=== PATIENT | male | born 1940 | race Caucasian/White ===

== ENCOUNTER → 2019-07-04 15:30 | Outpatient (BNVA) | payer MEDICARE, SELFPAY | PROVIDERS: Family Provider Family Medicine; PCP Family Medicine; Visit Provider Family Medicine | DX: E11.9 Type 2 diabetes mellitus without complications (principal); E78.2 Mixed hyperlipidemia; Z86.73 Personal history of transient ischemic attack (TIA), and cerebral infarction without residual deficits; Z79.4 Long term (current) use of insulin; I10 Essential (primary) hypertension; M1A.9XX0 Chronic gout, unspecified, without tophus (tophi); I63.423 Cerebral infarction due to embolism of bilateral anterior cerebral arteries; K21.9 Gastro-esophageal reflux disease without esophagitis | CPT/HCPCS: 80053; 80061; 83036; 83721; 85025; 85610 ==

== ENCOUNTER → 2019-07-18 10:04 | Outpatient (BNVA) | payer MEDICARE, SELFPAY | PROVIDERS: Family Provider Family Medicine; PCP Family Medicine; Visit Provider Family Medicine | DX: I26.99 Other pulmonary embolism without acute cor pulmonale (principal) | CPT/HCPCS: 85610 ==

== ENCOUNTER → 2019-08-01 14:03 | Outpatient (BNVA) | payer MEDICARE, SELFPAY | PROVIDERS: Family Provider Family Medicine; PCP Family Medicine; Visit Provider Family Medicine | DX: I26.99 Other pulmonary embolism without acute cor pulmonale (principal) | CPT/HCPCS: 85610 ==

== ENCOUNTER → 2019-08-15 10:11 | Outpatient (BNVA) | payer MEDICARE, SELFPAY | PROVIDERS: Family Provider Family Medicine; PCP Family Medicine; Visit Provider Family Medicine | DX: I63.423 Cerebral infarction due to embolism of bilateral anterior cerebral arteries (principal); I82.409 Acute embolism and thrombosis of unspecified deep veins of unspecified lower extremity | CPT/HCPCS: 85610 ==

== ENCOUNTER → 2019-09-21 11:56 | Outpatient (BNVA) | payer MEDICARE, SELFPAY | PROVIDERS: Family Provider Family Medicine; PCP Family Medicine; Visit Provider Family Medicine | DX: I26.99 Other pulmonary embolism without acute cor pulmonale (principal) | CPT/HCPCS: 85610 ==

== ENCOUNTER → 2019-11-08 11:51 | Outpatient (BNVA) | payer MEDICARE, SELFPAY | PROVIDERS: Family Provider Family Medicine; PCP Family Medicine; Visit Provider Family Medicine | DX: E11.40 Type 2 diabetes mellitus with diabetic neuropathy, unspecified (principal); E78.5 Hyperlipidemia, unspecified; I63.423 Cerebral infarction due to embolism of bilateral anterior cerebral arteries; I10 Essential (primary) hypertension; K21.9 Gastro-esophageal reflux disease without esophagitis; E11.42 Type 2 diabetes mellitus with diabetic polyneuropathy; I26.99 Other pulmonary embolism without acute cor pulmonale; G47.00 Insomnia, unspecified; I50.9 Heart failure, unspecified | CPT/HCPCS: 80053; 80061; 83036; 85025 ==

== ENCOUNTER → 2020-01-22 11:50 | Outpatient (BNVA) | payer MEDICARE, SELFPAY | PROVIDERS: Family Provider Family Medicine; PCP Family Medicine; Visit Provider Family Medicine | DX: I26.99 Other pulmonary embolism without acute cor pulmonale (principal); E11.40 Type 2 diabetes mellitus with diabetic neuropathy, unspecified; L02.91 Cutaneous abscess, unspecified; L02.224 Furuncle of groin; E11.42 Type 2 diabetes mellitus with diabetic polyneuropathy | CPT/HCPCS: 85610 ==

== ENCOUNTER → 2020-02-21 10:43 | Outpatient (BNVA) | payer MEDICARE, SELFPAY | PROVIDERS: Family Provider Family Medicine; PCP Family Medicine; Visit Provider Family Medicine | DX: E11.40 Type 2 diabetes mellitus with diabetic neuropathy, unspecified (principal); E78.5 Hyperlipidemia, unspecified; I26.99 Other pulmonary embolism without acute cor pulmonale; I10 Essential (primary) hypertension; K21.9 Gastro-esophageal reflux disease without esophagitis | CPT/HCPCS: 80053; 80061; 83036; 85025; 85610 ==

== ENCOUNTER → 2020-03-26 11:02 | Outpatient (BNVA) | payer MEDICARE, SELFPAY | PROVIDERS: Family Provider Family Medicine; PCP Family Medicine; Visit Provider Family Medicine | DX: I26.99 Other pulmonary embolism without acute cor pulmonale (principal) | CPT/HCPCS: 85610 ==

== ENCOUNTER 2020-05-13 12:16 | Outpatient (CLI) | payer MEDICARE, SELFPAY ==
--- NOTE | 2020-05-13 12:45 | USCV_ITS ---
Shaila Galvan Age: 80 Gender: M : 1940 Exam Date: 05/13/2020 12:42 Ordering Phys: Noah Contreras MD ([email or web address]) Technologist: Layla Miguel Exam Location: [facility] [place] Indication: Pain in both lower extremities HISTORY: Lower extremity pain. PROCEDURES: Venous duplex imaging was performed in bilateral lower extremities. The following venous structures were evaluated: common femoral vein, profunda vein, proximal portion of the greater saphenous vein, superficial femoral vein, and the popliteal vein. Serial compression, augmentation maneuvers, and spectral Doppler flow evaluation were performed. FINDINGS: Normal 2-D Doppler and augmentation and compressibility throughout the lower extremity venous structures. Additional imaging through the proximal calf veins also reveals no thrombus. Limited evaluation of the greater saphenous vein is patent with no thrombus.. CONCLUSIONS No evidence of right lower extremity DVT. No evidence of left lower extremity DVT. Tato Rosas MD (Electronically Signed) Final Date: 13 May 2020 17:29 S
== END 2020-05-13 12:17 | disposition home or self-care (01) ==
PROVIDERS: PCP Family Medicine; Visit Provider Internal Medicine Cardiovascular Disease
DX: M79.604 Pain in right leg (principal); M79.605 Pain in left leg
CPT/HCPCS: 93970

== ENCOUNTER 2020-05-14 12:19 | Outpatient (CLI) | payer MEDICARE, SELFPAY ==
--- NOTE | 2020-05-14 12:25 | USCV_ITS ---
Shaila Galvan Age: 80 Gender: M : 1940 Exam Date: 05/14/2020 12:31 Ordering Phys: Noah Contreras MD Technologist: Qasim Larkin [place]am Location[place] [facility] [place]ication: PAIN IN BOTH LOWER EXTREMITIES. PAD RIGHT LEFT Brachial 127.00 mmHg Brachial 158.00 mmHg Pressure (mmHg) Waveform Pressure (mmHg) Waveform 93.00 Pre-Exercise Toe Pressure 130.00 FINDINGS Noncompressible arteries bilaterally at the ankle Slightly diminished restingTBI 0.59 on the right side and a normal resting TBI 0.82 on the left side CONCLUSIONS Features of mild peripheral artery disease on the right side No significant arterial obstruction on the left side Dr Pallavi Kumari MD [facility] Edited by: CV Cable Former (Electronically Signed) Final Date: 15 May 2020 17:20 Amended: 16 May 2020 06:55 C MTDD
== END 2020-05-14 12:20 | disposition home or self-care (01) ==
LOC: US 12:22
PROVIDERS: PCP Family Medicine; Visit Provider Internal Medicine Cardiovascular Disease
DX: M79.604 Pain in right leg (principal); M79.605 Pain in left leg; I73.9 Peripheral vascular disease, unspecified
CPT/HCPCS: 93922

== ENCOUNTER → 2020-05-20 10:40 | Outpatient (BNVA) | payer MEDICARE, SELFPAY | PROVIDERS: PCP Family Medicine; Visit Provider Family Medicine | DX: E11.40 Type 2 diabetes mellitus with diabetic neuropathy, unspecified (principal); E78.2 Mixed hyperlipidemia; I10 Essential (primary) hypertension; K21.9 Gastro-esophageal reflux disease without esophagitis; I26.99 Other pulmonary embolism without acute cor pulmonale | CPT/HCPCS: 80053; 80061; 83036; 84443; 85025; 85610 ==

== ENCOUNTER → 2020-06-27 10:26 | Outpatient (BNVA) | payer MEDICARE, SELFPAY | PROVIDERS: PCP Family Medicine; Visit Provider Family Medicine | DX: E03.9 Hypothyroidism, unspecified (principal); I26.99 Other pulmonary embolism without acute cor pulmonale | CPT/HCPCS: 84439; 84443; 84481; 85610 ==

== ENCOUNTER → 2020-08-23 14:38 | Outpatient (BNVA) | payer MEDICARE, SELFPAY | PROVIDERS: PCP Family Medicine; Visit Provider Family Medicine | DX: E78.2 Mixed hyperlipidemia (principal); E11.40 Type 2 diabetes mellitus with diabetic neuropathy, unspecified; I26.99 Other pulmonary embolism without acute cor pulmonale | CPT/HCPCS: 85610 ==

== ENCOUNTER → 2020-09-30 13:08 | Outpatient (BNVA) | payer MEDICARE, SELFPAY | PROVIDERS: PCP Family Medicine; Visit Provider Family Medicine | DX: E03.9 Hypothyroidism, unspecified (principal); E11.40 Type 2 diabetes mellitus with diabetic neuropathy, unspecified; E78.2 Mixed hyperlipidemia; I26.99 Other pulmonary embolism without acute cor pulmonale | CPT/HCPCS: 80053; 80061; 83036; 84443; 85025; 85610 ==

== ENCOUNTER → 2020-11-25 11:43 | Outpatient (BNVA) | payer MEDICARE, SELFPAY | PROVIDERS: PCP Family Medicine; Visit Provider Family Medicine | DX: E11.40 Type 2 diabetes mellitus with diabetic neuropathy, unspecified (principal); E78.2 Mixed hyperlipidemia; I10 Essential (primary) hypertension; M1A.9XX0 Chronic gout, unspecified, without tophus (tophi); I26.99 Other pulmonary embolism without acute cor pulmonale; Z68.30 Body mass index [BMI] 30.0-30.9, adult; Z71.89 Other specified counseling | CPT/HCPCS: 80053; 80061; 83036; 84443; 84550; 85025; 85610 ==

== ENCOUNTER → 2021-02-24 12:39 | Outpatient (BNVA) | payer MEDICARE, SELFPAY | PROVIDERS: PCP Family Medicine; Visit Provider Family Medicine | DX: E11.40 Type 2 diabetes mellitus with diabetic neuropathy, unspecified (principal); E78.2 Mixed hyperlipidemia; I10 Essential (primary) hypertension; I26.99 Other pulmonary embolism without acute cor pulmonale; K21.9 Gastro-esophageal reflux disease without esophagitis; R53.83 Other fatigue; Z12.5 Encounter for screening for malignant neoplasm of prostate; M79.671 Pain in right foot; M79.672 Pain in left foot; M1A.9XX0 Chronic gout, unspecified, without tophus (tophi); E78.5 Hyperlipidemia, unspecified | CPT/HCPCS: 80053; 80061; 82607; 83036; 84403; 84443; 85025; 85610; G0103 ==

== ENCOUNTER → 2021-03-24 13:07 | Outpatient (BNVA) | payer MEDICARE, SELFPAY | PROVIDERS: PCP Family Medicine; Referring Provider Family Medicine; Visit Provider Podiatrist Foot & Ankle Surgery | DX: M19.071 Primary osteoarthritis, right ankle and foot (principal); M79.671 Pain in right foot; M79.672 Pain in left foot | CPT/HCPCS: 73620; 73630 ==

== ENCOUNTER → 2021-04-02 12:09 | Outpatient (BNVA) | payer MEDICARE, SELFPAY | PROVIDERS: PCP Family Medicine; Visit Provider Family Medicine | DX: E11.40 Type 2 diabetes mellitus with diabetic neuropathy, unspecified (principal); E78.2 Mixed hyperlipidemia; I10 Essential (primary) hypertension; I26.99 Other pulmonary embolism without acute cor pulmonale; Z23 Encounter for immunization; R06.02 Shortness of breath; I51.7 Cardiomegaly; J90 Pleural effusion, not elsewhere classified; I70.0 Atherosclerosis of aorta | CPT/HCPCS: 71046; 80053; 80061; 83036; 84443; 85025; 85610 ==

== ENCOUNTER → 2021-06-30 11:29 | Outpatient (BNVA) | payer MEDICARE, SELFPAY | PROVIDERS: PCP Family Medicine; Visit Provider Family Medicine | DX: K21.9 Gastro-esophageal reflux disease without esophagitis (principal); E78.2 Mixed hyperlipidemia; E11.40 Type 2 diabetes mellitus with diabetic neuropathy, unspecified; I10 Essential (primary) hypertension; I26.99 Other pulmonary embolism without acute cor pulmonale | CPT/HCPCS: 80053; 80061; 83036; 84443; 85025; 85610 ==

== ENCOUNTER → 2021-09-29 11:34 | Outpatient (BNVA) | payer MEDICARE, SELFPAY | PROVIDERS: PCP Family Medicine; Visit Provider Family Medicine | DX: E78.5 Hyperlipidemia, unspecified (principal); E11.9 Type 2 diabetes mellitus without complications; I10 Essential (primary) hypertension; K21.9 Gastro-esophageal reflux disease without esophagitis; I73.9 Peripheral vascular disease, unspecified; E11.40 Type 2 diabetes mellitus with diabetic neuropathy, unspecified; E78.2 Mixed hyperlipidemia; R06.02 Shortness of breath; I50.32 Chronic diastolic (congestive) heart failure | CPT/HCPCS: 80053; 80061; 83036; 84443; 85025; 85610 ==

== ENCOUNTER → 2021-10-09 09:27 | Outpatient (BNVA) | payer MEDICARE, SELFPAY | PROVIDERS: PCP Family Medicine; Visit Provider Internal Medicine Cardiovascular Disease | DX: I13.0 Hypertensive heart and chronic kidney disease with heart failure and stage 1 through stage 4 chronic kidney disease, or unspecified chronic kidney disease (principal); E11.22 Type 2 diabetes mellitus with diabetic chronic kidney disease; E11.40 Type 2 diabetes mellitus with diabetic neuropathy, unspecified; N18.9 Chronic kidney disease, unspecified; I50.32 Chronic diastolic (congestive) heart failure; Z79.4 Long term (current) use of insulin; Z79.84 Long term (current) use of oral hypoglycemic drugs; I25.10 Atherosclerotic heart disease of native coronary artery without angina pectoris; I73.9 Peripheral vascular disease, unspecified | CPT/HCPCS: 99214 ==

== ENCOUNTER 2021-10-20 10:00 | Outpatient (CLI) | payer MEDICARE, SELFPAY ==
[2021-10-20 10:42] LABS: Anion Gap 14.2 (5-19); Blood Urea Nitrogen 25 mg/dL (8-23); Calcium 9.4 mg/dL (8.5-10.5); Carbon Dioxide 28 mmol/L (22-29); Chloride 100 mmol/L (98-107); Glucose 263 mg/dL (65-115); Magnesium 1.9 mg/dL (1.7-2.3); NT Pro B Type Natriuretic Pept 2309 pg/mL (0-450); Osmolality Calculated 298 mOsm/kg (285-295); Potassium 5.2 mmol/L (3.5-5.1); Sodium 137 mmol/L (136-145)
== END 2021-10-20 10:01 | disposition home or self-care (01) ==
LOC: LAB 10:02
PROVIDERS: PCP Family Medicine; Visit Provider Internal Medicine Cardiovascular Disease
DX: I25.10 Atherosclerotic heart disease of native coronary artery without angina pectoris (principal); I73.9 Peripheral vascular disease, unspecified; R06.02 Shortness of breath
CPT/HCPCS: 80048; 83735; 83880

== ENCOUNTER 2021-10-30 09:30 | Outpatient (CLI) | payer MEDICARE, SELFPAY ==
[2021-10-30 10:37] LABS: Blood Urea Nitrogen 28 mg/dL (8-23); Calcium 9.8 mg/dL (8.5-10.5); Carbon Dioxide 31 mmol/L (22-29); Chloride 98 mmol/L (98-107); Glucose 188 mg/dL (65-115); Magnesium 2.2 mg/dL (1.7-2.3); NT Pro B Type Natriuretic Pept 1628 pg/mL (0-450); Osmolality Calculated 296 mOsm/kg (285-295); Sodium 138 mmol/L (136-145)
[2021-10-30 10:41] LABS: Anion Gap 14.5 (5-19); Potassium 5.5 mmol/L (3.5-5.1)
== END 2021-10-30 09:31 | disposition home or self-care (01) ==
LOC: LAB 09:32
PROVIDERS: PCP Family Medicine; Visit Provider Internal Medicine Cardiovascular Disease
DX: I25.10 Atherosclerotic heart disease of native coronary artery without angina pectoris (principal); I50.32 Chronic diastolic (congestive) heart failure
CPT/HCPCS: 80048; 83735; 83880

== ENCOUNTER 2021-11-21 06:24 | Outpatient (CLI) | payer MEDICARE, SELFPAY ==
--- NOTE | 2021-11-21 06:30 | USCV_ITS ---
Shaila Galvan Age: 81 Gender: M : 1940 Exam Date: 11/21/2021 06:44 Ordering Phys: Anette Li MD ([email or web address]) Technologist: SHAYY [place] [facility] [place]: Shortness of breath BP: 144 / 62 HR: 82 Rhythm: Sinus Technical Quality: Adequate MEASUREMENTS (Male / Female) Normal Values 2D ECHO LV Diastolic Diameter PLAX 4.7 cm 4.2 - 5.9 / 3.9 - 5.3 cm LV Systolic Diameter PLAX 4.0 cm IVS Diastolic Thickness 1.3 cm 0.6 - 1.0 / 0.6 - 0.9 cm IVS Systolic Thickness 1.5 cm LVPW Diastolic Thickness 1.6 cm 0.6 - 1.0 / 0.6 - 0.9 cm LVPW Systolic Thickness 2.1 cm LVOT Diameter 2.0 cm LV Ejection Fraction 2D Teich 31.0 % LV Ejection Fraction MOD 2C 19.8 % LV Ejection Fraction 2C AL 21.8 % LA Diameter 3.8 cm Aorta at Sinotubular Diameter 2.2 cm IVC Diameter 2.0 cm M-MODE Aortic Annulus Diameter 2.9 cm LA Ao Ratio MM 1.4 MV E Point Septal Separation 1.2 cm DOPPLER AV Peak Velocity 124.0 cm/s LVOT Peak Velocity 92.0 cm/s AV Area Cont Eq vti 1.9 cm squared AV Area Cont Eq pk 2.4 cm squared MV Area PHT 4.9 cm squared MV E' Velocity 50.0 cm/s Mitral E to MV E' Ratio 20.8 Mitral E to LV E' Lateral Ratio 14.9 Mitral E to LV E' Septal Ratio 34.7 TR Peak Velocity 276.7 cm/s TR Peak Gradient 30.6 mmHg Right Atrial Pressure 3.0 mmHg Pulmonary Artery Systolic Pressu 33.6 mmHg PV Peak Velocity 106.0 cm/s RV Acceleration Time 0.1 s RV Ejection Time 0.2 s RV AcT/ET 0.3 FINDINGS Left Ventricle Normal left ventricular cavity size. Severely decreased left ventricular systolic function. Left ventricular ejection fraction is estimated at 25-30 %. Moderate global hypokinesis with severe hypokinesis of mid inferoseptal, mid apical septal and apical septal hinojosa. Right Ventricle Normal right ventricular size. Low normal right ventricular systolic function. Right Atrium Right atrium not well visualized. Left Atrium Left atrium not well visualized. Mitral Valve Moderate mitral annular calcification. Moderately thickened mitral valve. No mitral valve stenosis. No significant mitral valve regurgitation. Aortic Valve Aortic valve not well visualized. No significant aortic valve stenosis. No aortic valve regurgitation. Tricuspid Valve Tricuspid valve not well visualized. Pulmonic Valve Structurally normal pulmonic valve. No pulmonary valve stenosis. Trace pulmonary valve regurgitation. Pericardium No pericardial effusion. Aorta Normal sized aortic root. IVC Normal IVC dimension with <50% respiratory change of the inferior vena cava. CONCLUSIONS 1. This is a technically very difficult study. Optison was used per protocol. 2. Normal left ventricular cavity size. Severely decreased left ventricular systolic function. Left ventricular ejection fraction is estimated at 25-30 %. Moderate global hypokinesis with severe hypokinesis of mid inferoseptal, mid apical septal and apical septal hinojosa. 3. No significant change when compared to echo report dated 01/10/2018. Anette Li MD (Electronically Signed) Final Date: 25 November 2021 07:39 S
[2021-11-21] MEDS: perflutren protein-a microsphr 0.22 mg/mL SDV 3 mL IV (07:23)
== END 2021-11-21 06:25 | disposition home or self-care (01) ==
LOC: RAD 06:28
PROVIDERS: PCP Family Medicine; Visit Provider Internal Medicine Cardiovascular Disease
DX: I25.10 Atherosclerotic heart disease of native coronary artery without angina pectoris (principal); I50.32 Chronic diastolic (congestive) heart failure; R06.02 Shortness of breath
CPT/HCPCS: C8929

== ENCOUNTER 2021-11-25 09:21 | Outpatient (CLI) | payer MEDICARE, SELFPAY ==
--- NOTE | 2021-11-25 09:15 | USCV_ITS ---
Shaila Galvan Age: 81 Gender: M : 1940 Exam Date: 11/25/2021 10:01 Ordering Phys: Anette Li MD ([email or web address]) Technologist: SHITAL [place] [facility] [place]ication: carotid stenosis Risk Factors: Previous Vascular Surgery: Right Brachial BP: / Left Brachial BP: / Right Left Velocity (cm/s) Spectral Plaque Velocity (cm/s) Spectral Plaque Syst/Diast Broadening Syst/Diast Broadening 85.80/ 11.80 Hetro Prox CCA 145.70/ 14.40 Hetro 123.50/14.30 Hetro Mid CCA 149.30/ 18.00 Hetro 65.10/ 8.80 Jesus Distal CCA 149.30/ 23.40 Jesus 63.70/ 14.00 Jesus Prox ICA 111.50/ 19.80 Jesus 582.20/163.20 Jesus Mid ICA 494.30/ 161.50 Jesus 115.00/15.50 Hetro Distal ICA 276.20/ 58.10 Hetro 189.30 ECA 351.10 4.71 ICA/CCA 3.31 Retrograde Vertebral Antegrade 41.90/ 25.40 cm/s 41.40/ 7.30 cm/s Bi Subclavian Bi 219.7 134.7 0 0 FINDINGS Heavy heterogeneous plaques at the mid ICA bilaterally with a markedly elevated Doppler flow velocities and spectral broadening Mild to moderate diffuse plaques in the common carotid arteries bilaterally. Retrograde flow in the vertebral artery on the right side Elevated velocity in the subclavian artery on the right side CONCLUSIONS 1. Heavy heterogeneous plaques in the proximal to mid internal carotid artery bilaterally relative Doppler features suggesting greater than 70% stenosis. 2. 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 3. Mild to moderate diffuse plaques in the common carotid arteries bilaterally Compared to the study from 01/10/2018, there appears to be a significant worsening of stenosis on both sides. The reversal of flow in the right vertebral artery appears to be new Dr Pallavi Kumari MD [facility] (Electronically Signed) Final Date: 26 November 2021 08:05 S
--- NOTE | 2021-11-25 10:00 | USCV_ITS ---
Shaila Galvan Age: 81 Gender: M : 1940 Exam Date: 11/25/2021 10:28 Ordering Phys: Anette Li MD ([email or web address]) Technologist: SHITAL Exam Location: [facility] [place] Indication: pad Risk Factors: Previous Vascular Surgery: RIGHT LEFT BP: 126.0 / 87.00 BP: 167.0/ 86.00 0 0 Waveform Velocity (cm/s) Velocity (cm/s) Waveform Monophasic 148.6 Iliac Prox 105.2 Biphasic Biphasic 144.6 Iliac Mid 96.0 Biphasic Biphasic 128.8 Iliac Distal 85.4 Biphasic Biphasic 94.7 WATER PURIFIER OPERATOR 86.1 Biphasic Biphasic 118.3 SFA Prox 84.1 Biphasic Biphasic 109.1 SFA Mid 77.6 Biphasic Biphasic SFA Dist Biphasic 101.2 86.8 Biphasic 80.5 POP 84.1 Biphasic Monophasic 70.7 ROTOR COIL TAPER 36.8 Monophasic Monophasic 21.0 DPA 113.1 Monophasic FINDINGS The dorsalis pedis and posterior tibial arteries on either side were found to be noncompressible. Significant drop in the systolic blood pressure in the right brachial artery, compared to the left. Abnormal Doppler waveforms in the infrapopliteal vessels CONCLUSIONS 1. Noncompressible vessels bilaterally suggesting extensive arterial sclerosis. 2. Abnormal Doppler waveforms bilaterally in the infrapopliteal vessels, may suggest nonobstructive atherosclerotic disease. 3. Consider exercise PAU, if clinically indicated Compared to the study from 05/14/2020, the PAU has not changed- still remains noncompressible Dr Pallavi Kumari MD [facility] (Electronically Signed) Final Date: 26 November 2021 08:24 S
== END 2021-11-25 09:22 | disposition home or self-care (01) ==
LOC: RAD 09:23
PROVIDERS: PCP Family Medicine; Visit Provider Internal Medicine Cardiovascular Disease
DX: I65.23 Occlusion and stenosis of bilateral carotid arteries (principal); I73.9 Peripheral vascular disease, unspecified
CPT/HCPCS: 93880; 93925

== ENCOUNTER → 2021-12-03 13:29 | Outpatient (BNVA) | payer MEDICARE, SELFPAY | PROVIDERS: PCP Family Medicine; Visit Provider Internal Medicine Cardiovascular Disease | DX: I13.0 Hypertensive heart and chronic kidney disease with heart failure and stage 1 through stage 4 chronic kidney disease, or unspecified chronic kidney disease (principal); I50.32 Chronic diastolic (congestive) heart failure; I25.10 Atherosclerotic heart disease of native coronary artery without angina pectoris; I73.9 Peripheral vascular disease, unspecified; K21.9 Gastro-esophageal reflux disease without esophagitis; E11.40 Type 2 diabetes mellitus with diabetic neuropathy, unspecified; E11.22 Type 2 diabetes mellitus with diabetic chronic kidney disease; N18.9 Chronic kidney disease, unspecified; Z79.84 Long term (current) use of oral hypoglycemic drugs; Z79.4 Long term (current) use of insulin; Z95.1 Presence of aortocoronary bypass graft | CPT/HCPCS: 99214 ==

== ENCOUNTER → 2021-12-29 12:24 | Outpatient (BNVA) | payer MEDICARE, SELFPAY | PROVIDERS: PCP Family Medicine; Visit Provider Family Medicine | DX: I10 Essential (primary) hypertension (principal); R60.9 Edema, unspecified; K21.9 Gastro-esophageal reflux disease without esophagitis; E78.2 Mixed hyperlipidemia; E11.40 Type 2 diabetes mellitus with diabetic neuropathy, unspecified; I50.32 Chronic diastolic (congestive) heart failure; Z00.00 Encounter for general adult medical examination without abnormal findings; Z12.5 Encounter for screening for malignant neoplasm of prostate | CPT/HCPCS: 80053; 80061; 83036; 84443; 85025; G0103 ==

== ENCOUNTER → 2022-03-30 12:13 | Outpatient (BNVA) | payer MEDICARE, SELFPAY | PROVIDERS: PCP Family Medicine; Visit Provider Family Medicine | DX: K21.9 Gastro-esophageal reflux disease without esophagitis (principal); E78.2 Mixed hyperlipidemia; E11.40 Type 2 diabetes mellitus with diabetic neuropathy, unspecified; I10 Essential (primary) hypertension; I26.99 Other pulmonary embolism without acute cor pulmonale; Z23 Encounter for immunization | CPT/HCPCS: 80053; 80061; 83036; 84443; 85025 ==

== ENCOUNTER → 2022-06-29 12:25 | Outpatient (BNVA) | payer MEDICARE, SELFPAY | PROVIDERS: PCP Family Medicine; Visit Provider Family Medicine | DX: E11.40 Type 2 diabetes mellitus with diabetic neuropathy, unspecified (principal); E78.2 Mixed hyperlipidemia; I10 Essential (primary) hypertension; Z12.5 Encounter for screening for malignant neoplasm of prostate; M1A.9XX0 Chronic gout, unspecified, without tophus (tophi) | CPT/HCPCS: 80053; 80061; 83036; 84443; 84550; 85025; G0103 ==

== ENCOUNTER → 2022-10-07 16:13 | Outpatient (BNVA) | payer MEDICARE, SELFPAY | PROVIDERS: PCP Family Medicine; Visit Provider Family Medicine | DX: G89.4 Chronic pain syndrome (principal); I73.9 Peripheral vascular disease, unspecified; M1A.9XX0 Chronic gout, unspecified, without tophus (tophi); E78.5 Hyperlipidemia, unspecified; I10 Essential (primary) hypertension; I25.10 Atherosclerotic heart disease of native coronary artery without angina pectoris; E11.40 Type 2 diabetes mellitus with diabetic neuropathy, unspecified | CPT/HCPCS: 80053; 80061; 83036; 84550; 85025 ==

== ENCOUNTER → 2023-01-04 12:10 | Outpatient (BNVA) | payer MEDICARE, SELFPAY | PROVIDERS: PCP Family Medicine; Visit Provider Family Medicine | DX: I10 Essential (primary) hypertension (principal); E78.5 Hyperlipidemia, unspecified; E11.9 Type 2 diabetes mellitus without complications; I25.10 Atherosclerotic heart disease of native coronary artery without angina pectoris; Z13.29 Encounter for screening for other suspected endocrine disorder; M1A.9XX0 Chronic gout, unspecified, without tophus (tophi) | CPT/HCPCS: 80053; 80061; 83036; 84443; 84550; 85025 ==

== ENCOUNTER → 2023-02-23 11:37 | Outpatient (BNVA) | payer MEDICARE, SELFPAY | PROVIDERS: PCP Family Medicine; Visit Provider Internal Medicine Cardiovascular Disease | DX: G89.4 Chronic pain syndrome (principal); I73.9 Peripheral vascular disease, unspecified; I25.10 Atherosclerotic heart disease of native coronary artery without angina pectoris; E78.2 Mixed hyperlipidemia; E11.40 Type 2 diabetes mellitus with diabetic neuropathy, unspecified; I26.99 Other pulmonary embolism without acute cor pulmonale; I13.0 Hypertensive heart and chronic kidney disease with heart failure and stage 1 through stage 4 chronic kidney disease, or unspecified chronic kidney disease; E11.22 Type 2 diabetes mellitus with diabetic chronic kidney disease; I50.32 Chronic diastolic (congestive) heart failure; N18.9 Chronic kidney disease, unspecified; Z87.891 Personal history of nicotine dependence; Z79.4 Long term (current) use of insulin; Z79.84 Long term (current) use of oral hypoglycemic drugs | CPT/HCPCS: 99214 ==

== ENCOUNTER → 2023-04-08 12:20 | Outpatient (BNVA) | payer MEDICARE, SELFPAY | PROVIDERS: PCP Family Medicine; Visit Provider Family Medicine | DX: E11.9 Type 2 diabetes mellitus without complications (principal); E78.5 Hyperlipidemia, unspecified; I10 Essential (primary) hypertension; Z12.5 Encounter for screening for malignant neoplasm of prostate; I25.10 Atherosclerotic heart disease of native coronary artery without angina pectoris; E11.40 Type 2 diabetes mellitus with diabetic neuropathy, unspecified; G47.00 Insomnia, unspecified; Z23 Encounter for immunization; Z00.00 Encounter for general adult medical examination without abnormal findings | CPT/HCPCS: 80053; 80061; 83036; 84443; 85025; G0103 ==

== ENCOUNTER → 2023-04-27 11:32 | Outpatient (BNVA) | payer MEDICARE, SELFPAY | PROVIDERS: PCP Family Medicine; Visit Provider Internal Medicine Cardiovascular Disease | DX: I25.10 Atherosclerotic heart disease of native coronary artery without angina pectoris (principal); I13.0 Hypertensive heart and chronic kidney disease with heart failure and stage 1 through stage 4 chronic kidney disease, or unspecified chronic kidney disease; E11.22 Type 2 diabetes mellitus with diabetic chronic kidney disease; N18.9 Chronic kidney disease, unspecified; I50.32 Chronic diastolic (congestive) heart failure; E11.51 Type 2 diabetes mellitus with diabetic peripheral angiopathy without gangrene; Z79.4 Long term (current) use of insulin; Z95.1 Presence of aortocoronary bypass graft; G89.4 Chronic pain syndrome; R06.02 Shortness of breath; I83.893 Varicose veins of bilateral lower extremities with other complications; E78.2 Mixed hyperlipidemia; E11.40 Type 2 diabetes mellitus with diabetic neuropathy, unspecified; I26.99 Other pulmonary embolism without acute cor pulmonale; Z79.01 Long term (current) use of anticoagulants; I25.5 Ischemic cardiomyopathy; Z87.891 Personal history of nicotine dependence | CPT/HCPCS: 99214 ==

== ENCOUNTER → 2023-07-27 12:06 | Outpatient (BNVA) | payer MEDICARE, SELFPAY | PROVIDERS: PCP Family Medicine; Visit Provider Family Medicine | DX: R79.89 Other specified abnormal findings of blood chemistry (principal) | CPT/HCPCS: 84439; 84443; 84481 ==

== ENCOUNTER 2023-10-03 03:03 | Inpatient (IN) | payer MEDICARE, SELFPAY ==
[2023-10-03] VITALS (13 sets, daily range): BP systolic 104–157; BP diastolic 47–74; PULSE 64–94; RESP 16–29; TEMP 36.3–37.3; O2SAT 93–100; BMI 27.3
--- NOTE | 2023-10-03 03:20 | ED_ITS ---
Documented by User: Adeel Nation DO 10/03/23 05:29 HPI - General Adult 2 General: Chief complaint: General Medical Stated complaint: PAIN ALL OVER Time Seen by Provider: 10/03/23 03:04 History of Present Illness: Patient brought in by EMS with complaints of all over pain. Patient is a diabetic with neuropathy. Per EMS patient was alert and oriented and talking complete sentences when a picked him up but when he got here it it appeared to having a difficulty time finding words at times. Sometimes patient can speak in complete sentences and answer questions other times it seems like patient cannot get the words out. Patient is on Eliquis, patient does have a history of coronary artery disease, [place], PE, CVA, Review of Systems 2 General: Reports: 10 or more systems reviewed and unremarkable except in HPI and below PFSH ED 2 PFSH: Medical History Ischemic cardiomyopathy Anticoagulation adequate with anticoagulant therapy Varicose veins of bilateral lower extremities with other complications Claudication Chronic gout History of stroke PAD (peripheral artery disease) CAD (coronary artery disease) Diabetic peripheral neuropathy Chronic pain disorder Insomnia GERD (gastroesophageal reflux disease) Hyperlipidemia Diabetes CHF (congestive heart failure) CKD (chronic kidney disease) Hypertension Pulmonary embolism Hernia Surgical History H/O heart bypass surgery Hx of cholecystectomy Family History Other Diabetes Hyperlipidemia Hypertension Social History Smoking and tobacco/nicotine status: former use of tobacco/nicotine (quit 2002 HX 30 yr smoker) Alcohol intake: current Alcohol intake frequency: holidays/special occasions only Substance/Drug Use: never Household members: spouse Marital status: Current gender identity: Male Physical Exam 2 Const: COMMON NORMALS: no acute distress, average body habitus, healthy appearing, alert and well nourished HENMT: COMMON NORMALS: normocephalic, atraumatic, hearing grossly normal bilaterally, external ears normal, Normal external nose present, moist oral mucous membranes and oropharynx normal HEAD & SCALP: normocephalic and atraumatic NOSE: Normal external nose present EXTERNAL EAR: Yes external ears normal Eye: COMMON NORMALS: Equal, round and reactive pupils present, EOMs intact bilaterally, conjunctivae normal and no scleral icterus CONJUNCTIVA: Yes conjunctivae normal PUPIL: Yes Equal, round and reactive pupils present Neck/C-Spine: COMMON NORMALS: full ROM, no lymphadenopathy, supple, no meningeal signs, no JVD and Thyroid normal THYROID: Thyroid normal Chest: COMMONS NORMALS: normal inspection of the chest and normal palpation of entire chest wall Resp: COMMON NORMALS: normal respiratory effort, No retractions, No use of accessory muscles and clear to auscultation bilaterally AUSCULTATION: clear to auscultation bilaterally Cardio: COMMON NORMALS: no JVD, regular rate, regular rhythm, S1 normal heart sound present, S2 normal heart sound present, No gallops present (Cardio), No clicks present (Cardio), No murmurs present (Cardio) and No rub (Cardio) R ATE: regular rate RHYTHM: regular rhythm HEART SOUNDS: S1 normal heart sound present and S2 normal heart sound present GI: COMMON NORMALS: Normal to inspection, nondistended, normoactive bowel sounds present, Soft to palpation, non-tender, No hepatosplenomegaly present and no masses PALPATION: Yes Soft to palpation and Yes No hepatosplenomegaly present Neuro: SENSORIUM/ORIENTATION: Yes alert MENINGEAL SIGNS: Yes no meningeal signs OTHER: No focal neurologic deficits, appears to have intermittent expressive aphasia. Course 2 Vital Signs: Vital signs: Vital Signs Temperature 99.2 F 10/03/23 03:04 Pulse Rate 69 10/03/23 07:00 Respiratory Rate 26 H 10/03/23 06:24 Blood Pressure 104/52 10/03/23 07:00 Pulse Oximetry 95 10/03/23 07:00 Oxygen Delivery Me thod Nasal Cannula 10/03/23 06:24 Oxygen Flow Rate 2 10/03/23 06:24 [facility] [place] - General Adult Medical Records I reviewed the patient's medical records. Lab Data I reviewed the patient's lab results. 10/03/23 03:13 10/03/23 03:13 Radiology Impressions Chest X-Ray 10/03/23 03:21 IMPRESSION: 1. Patchy airspace opacities in bilateral lung bases, which likely represent bilateral lower lobe pneumonia. 2. Cardiac silhouette is mildly enlarged. Head CT 10/03/23 03:21 IMPRESSION: 1. No acute intracranial findings and no significant change. 2. Stable encephalomalacia in the left frontal lobe and left temporal lobe. 3. Chronic microvascular ischemic changes in bilateral periventricular white matter. ASSESSMENT: ASPECTS ([place] Stroke Program Early CT Score) is 10. Laboratory Results WBC 7.31 10^3/uL (3.29-11.43) 10/03/23 03:13 RBC 5.09 10^6/uL (3.85-5.65) 10/03/23 03:13 Hgb 12.20 g/dL (11.27-16.99) 10/03/23 03:13 Hct 42.3 % (37-53) 10/03/23 03:13 MCV 83.1 fl (82-101) 10/03/23 03:13 MCH 24.0 pg (27-33) L 10/03/23 03:13 MCHC 28.8 g/dL (30-55) L 10/03/23 03:13 RDW 17.3 % (12.1-15.1) H 10/03/23 03:13 Plt Count 125 10^3/cmm (157-399) L 10/03/23 03:13 MPV 10.8 fL (7.4-10.4) H 10/03/23 03:13 Neut % (Auto) 79.6 % 10/03/23 03:13 Lymph % (Auto) 10.1 % 10/03/23 03:13 Fleming % (Auto) 7.8 % 10/03/23 03:13 Eos % (Auto) 1.8 % 10/03/23 03:13 Baso % (Auto) 0.3 % 10/03/23 03:13 Neut # (Auto) 5.82 10^3/uL (1.8-7.7) 10/03/23 03:13 Lymph # (Auto) 0.7 10^3/uL (0.8-4.8) L 10/03/23 03:13 Fleming # (Auto) 0.6 10^3/uL (0.2-0.9) 10/03/23 03:13 Eos # (Auto) 0.1 10^3/uL (0.0-0.8) 10/03/23 03:13 Baso # (Auto) 0.0 10^3/uL (0.0-0.1) 10/03/23 03:13 Nucleated RBC % (auto) 0 % 10/03/23 03:13 Nucleated RBCs # 0.0 /100WBC 10/03/23 03:13 PT 13.50 SECONDS (12.1-14.9) 10/03/23 03:13 INR 1.00 (0.8-1.2) 10/03/23 03:13 APTT 33.1 SECONDS (23.9-36.7) 10/03/23 03:13 Sodium 139 mmol/L (136-145) 10/03/23 03:13 Potassium 4.9 mmol/L (3.5-5.1) 10/03/23 03:13 Chloride 102 mmol/L (98-107) 10/03/23 03:13 Carbon Dioxide 24 mmol/L (22-29) 10/03/23 03:13 Anion Gap 17.9 (5-19) 10/03/23 03:13 BUN 21 mg/dL (8-23) 10/03/23 03:13 Creatinine 1.2 mg/dL (0.7-1.2) 10/03/23 03:13 GFR Calculation Not Reportable 10/03/23 03:13 Glucose 149 mg/dL (65-115) H 10/03/23 03:13 POC Glucose 157 mg/dL (70-110) H 10/03/23 03:31 Calculated Osmolality 294 mOsm/kg (285-295) 10/03/23 03:13 Lactic Acid 1.4 mmol/L (0.5-2.2) 10/03/23 05:39 Uric Acid 4.6 mg/dL (3.4-7.0) 10/03/23 03:13 Calcium 10.2 mg/dL (8.5-10.5) 10/03/23 03:13 Magnesium 2.1 mg/dL (1.7-2.3) 10/03/23 03:13 Total Bilirubin 0.8 mg/dL (0.15-1.2) 10/03/23 03:13 AST 15 U/L (0-40) 10/03/23 03:13 ALT 7 U/L (0-41) 10/03/23 03:13 Alkaline Phosphatase 80 U/L (40-130) 10/03/23 03:13 Troponin T Baseline 58 ng/L (0-15) H 10/03/23 03:13 Troponin T 120 Minute 52.58 ng/L (0-15) H 10/03/23 05:39 Delta Troponin T -5.42 ABS# (0-10) L 10/03/23 05:39 C-Reactive Protein 29.2 mg/L (0.0-4.9) H 10/03/23 03:13 Total Protein 7.4 g/dL (6.6-8.7) 10/03/23 03:13 Albumin 4.6 g/dL (3.5-5.2) 10/03/23 03:13 Globulin 2.8 g/dL (1.3-4.6) 10/03/23 03:13 Procalcitonin 0.11 ng/mL (0-0.5) 10/03/23 03:13 TSH 11.74 uIU/mL (0.27-4.20) H 10/03/23 03:13 Ethyl Alcohol < 10 mg/dL (0-10) 10/03/23 03:13 Influenza Type A Ag negative (Negative) 10/03/23 04:22 Influenza Type B Ag negative (Negative) 10/03/23 04:22 SARS-CoV-2 Ag (Rapid) negative (Negative) 10/03/23 04:22 All radiology interpretation(s) finalized by discharge Discharge Plan Discharge Admit Provider: Angela Elias Condition: Stable Sign Out Sign Out Data: Patient Sign Out occurred on 10/03/23 at 06:03. Patient's care was discussed, and care was transferred from Adeel Nation DO to Prasanth Nix DO. Coding Level of Care Code ED Advisor Consultant for Chg Fwd Documented by User: Prasanth Nix DO 10/03/23 08:41 HPI - General Adult 2 General: Chief complaint: General Medical Stated complaint: PAIN ALL OVER Time Seen by Provider: 10/03/23 03:04 PFSH ED 2 PFSH: Medical History Ischemic cardiomyopathy Anticoagulation adequate with anticoagulant therapy Varicose veins of bilateral lower extremities with other complications Claudication Chronic gout History of stroke PAD (peripheral artery disease) CAD (coronary artery disease) Diabetic peripheral neuropathy Chronic pain disorder Insomnia GERD (gastroesophageal reflux disease) Hyperlipidemia Diabetes CHF (congestive heart failure) CKD (chronic kidney disease) Hypertension Pulmonary embolism Hernia Surgical History H/O heart bypass surgery Hx of cholecystectomy Family History Other Diabetes Hyperlipidemia Hypertension Social History Smoking and tobacco/nicotine status: former use of tobacco/nicotine (quit 2002 HX 30 yr smoker) Alcohol intake: current Alcohol intake frequency: holidays/special occasions only Substance/Drug Use: never Household members: spouse Marital status: Current gender identity: Male Course 2 Vital Signs: Vital signs: Vital Signs Temperature 99.2 F 10/03/23 03:04 Pulse Rate 69 10/03/23 07:00 Respiratory Rate 26 H 10/03/23 06:24 Blood Pressure 104/52 10/03/23 07:00 Pulse Oximetry 95 10/03/23 07:00 Oxygen Delivery Me thod Nasal Cannula 10/03/23 06:24 Oxygen Flow Rate 2 10/03/23 06:24 MDM - General Adult Medical Decision Making Care assumed from Dr. Nation at change of shift. TIA all of his symptoms have resolved CT head did not show anything acute he is requiring 2 L by nasal cannula and has pneumonia on imaging. Will admit with ceftriaxone and Zithromax. Initially patient's blood pressures have been stable however he is now developed some mild hypotension with blood pressure decreasing to 94/47 when given a 500 mL bolus of normal saline and will monitor. His lactic acid and white count were normal. Blood pressure improved after IV fluids transferred to floor. Lab Data 10/03/23 03:13 10/03/23 03:13 Radiology Impressions Chest X-Ray 10/03/23 03:21 IMPRESSION: 1. Patchy airspace opacities in bilateral lung bases, which likely represent bilateral lower lobe pneumonia. 2. Cardiac silhouette is mildly enlarged. Head CT 10/03/23 03:21 IMPRESSION: 1. No acute intracranial findings and no significant change. 2. Stable encephalomalacia in the left frontal lobe and left temporal lobe. 3. Chronic microvascular ischemic changes in bilateral periventricular white matter. ASSESSMENT: ASPECTS ([place] Stroke Program Early CT Score) is 10. Laboratory Results WBC 7.31 10^3/uL (3.29-11.43) 10/03/23 03:13 RBC 5.09 10^6/uL (3.85-5.65) 10/03/23 03:13 Hgb 12.20 g/dL (11.27-16.99) 10/03/23 03:13 Hct 42.3 % (37-53) 10/03/23 03:13 MCV 83.1 fl (82-101) 10/03/23 03:13 MCH 24.0 pg (27-33) L 10/03/23 03:13 MCHC 28.8 g/dL (30-55) L 10/03/23 03:13 RDW 17.3 % (12.1-15.1) H 10/03/23 03:13 Plt Count 125 10^3/cmm (157-399) L 10/03/23 03:13 MPV 10.8 fL (7.4-10.4) H 10/03/23 03:13 Neut % (Auto) 79.6 % 10/03/23 03:13 Lymph % (Auto) 10.1 % 10/03/23 03:13 Fleming % (Auto) 7.8 % 10/03/23 03:13 Eos % (Auto) 1.8 % 10/03/23 03:13 Baso % (Auto) 0.3 % 10/03/23 03:13 Neut # (Auto) 5.82 10^3/uL (1.8-7.7) 10/03/23 03:13 Lymph # (Auto) 0.7 10^3/uL (0.8-4.8) L 10/03/23 03:13 Fleming # (Auto) 0.6 10^3/uL (0.2-0.9) 10/03/23 03:13 Eos # (Auto) 0.1 10^3/uL (0.0-0.8) 10/03/23 03:13 Baso # (Auto) 0.0 10^3/uL (0.0-0.1) 10/03/23 03:13 Nucleated RBC % (auto) 0 % 10/03/23 03:13 Nucleated RBCs # 0.0 /100WBC 10/03/23 03:13 PT 13.50 SECONDS (12.1-14.9) 10/03/23 03:13 INR 1.00 (0.8-1.2) 10/03/23 03:13 APTT 33.1 SECONDS (23.9-36.7) 10/03/23 03:13 Sodium 139 mmol/L (136-145) 10/03/23 03:13 Potassium 4.9 mmol/L (3.5-5.1) 10/03/23 03:13 Chloride 102 mmol/L (98-107) 10/03/23 03:13 Carbon Dioxide 24 mmol/L (22-29) 10/03/23 03:13 Anion Gap 17.9 (5-19) 10/03/23 03:13 BUN 21 mg/dL (8-23) 10/03/23 03:13 Creatinine 1.2 mg/dL (0.7-1.2) 10/03/23 03:13 GFR Calculation Not Reportable 10/03/23 03:13 Glucose 149 mg/dL (65-115) H 10/03/23 03:13 POC Glucose 157 mg/dL (70-110) H 10/03/23 03:31 Calculated Osmolality 294 mOsm/kg (285-295) 10/03/23 03:13 Lactic Acid 1.4 mmol/L (0.5-2.2) 10/03/23 05:39 Uric Acid 4.6 mg/dL (3.4-7.0) 10/03/23 03:13 Calcium 10.2 mg/dL (8.5-10.5) 10/03/23 03:13 Magnesium 2.1 mg/dL (1.7-2.3) 10/03/23 03:13 Total Bilirubin 0.8 mg/dL (0.15-1.2) 10/03/23 03:13 AST 15 U/L (0-40) 10/03/23 03:13 ALT 7 U/L (0-41) 10/03/23 03:13 Alkaline Phosphatase 80 U/L (40-130) 10/03/23 03:13 Troponin T Baseline 58 ng/L (0-15) H 10/03/23 03:13 Troponin T 120 Minute 52.58 ng/L (0-15) H 10/03/23 05:39 Delta Troponin T -5.42 ABS# (0-10) L 10/03/23 05:39 C-Reactive Protein 29.2 mg/L (0.0-4.9) H 10/03/23 03:13 Total Protein 7.4 g/dL (6.6-8.7) 10/03/23 03:13 Albumin 4.6 g/dL (3.5-5.2) 10/03/23 03:13 Globulin 2.8 g/dL (1.3-4.6) 10/03/23 03:13 Procalcitonin 0.11 ng/mL (0-0.5) 10/03/23 03:13 TSH 11.74 uIU/mL (0.27-4.20) H 10/03/23 03:13 Ethyl Alcohol < 10 mg/dL (0-10) 10/03/23 03:13 Influenza Type A Ag negative (Negative) 10/03/23 04:22 Influenza Type B Ag negative (Negative) 10/03/23 04:22 SARS-CoV-2 Ag (Rapid) negative (Negative) 10/03/23 04:22 Discharge Plan Discharge Admit Provider: Angela Elias Condition: Stable Sign Out Sign Out Data: Patient Sign Out occurred on 10/03/23 at 06:03. Patient's care was discussed, and care was transferred from Adeel Nation DO to Prasanth Nix DO. Coding Level of Care Code ED Advisor Consultant for Heather Garica
--- NOTE | 2023-10-03 03:21 | XRR_ITS ---
PROCEDURE INFORMATION: Exam: XR Chest Exam date and time: 10/03/2023 3:24 AM Age: 83 years old Clinical indication: Prior surgery; Surgery date: 6+ months; Surgery type: Cabg. Gb. Patient HX: Hypertensive. History of chf. ; Additional info: Aphasia, HTN TECHNIQUE: Imaging protocol: Radiologic exam of the chest. Views: 1 view. COMPARISON: CR XR chest 2V* [id number] 04/02/2021 12:13 PM FINDINGS: Tubes, catheters and devices: Stable sternal wires and mediastinal clips. Lungs: Patchy airspace opacities in bilateral lung bases, which likely represent bilateral lower lobe pneumonia. Pleural spaces: No pleural effusion. No pneumothorax. Heart/Mediastinum: Cardiac silhouette is mildly enlarged. No mediastinal widening. Atherosclerotic calcifications in the thoracic aorta. Bones/joints: No acute fractures. XR/XR chest 1V portable [id number] IMPRESSION: 1. Patchy airspace opacities in bilateral lung bases, which likely represent bilateral lower lobe pneumonia. 2. Cardiac silhouette is mildly enlarged.
--- NOTE | 2023-10-03 03:21 | CTR_ITS ---
PROCEDURE INFORMATION: Exam: CT Head Without Contrast Exam date and time: 10/03/2023 3:38 AM Age: 83 years old Clinical indication: Stroke-like symptoms; Speech disturbance; Additional info: Symptoms of acute stroke TECHNIQUE: Imaging protocol: Computed tomography of the head without contrast. Radiation optimization: All CT scans at this facility use at least one of these dose optimization techniques: automated exposure control; mA and/or kV adjustment per patient size (includes targeted exams where dose is matched to clinical indication); or iterative reconstruction. Other technique: STROKE PROTOCOL was implemented. COMPARISON: CT head wo con* [id number] 01/12/2018 11:54 PM RADIATION DOSE METRICS: Total DLP (mGy-cm): 1090.85 FINDINGS: Brain: Stable encephalomalacia in the left frontal lobe and left temporal lobe. No acute intracranial hemorrhage. No mass effect or midline shift. No acute extraaxial fluid collection. Chronic microvascular ischemic changes in bilateral periventricular white matter. Cerebral ventricles: No ventriculomegaly. Paranasal sinuses: Partially visualized sinuses are unremarkable. No fluid levels. Mastoid air cells: Visualized mastoid air cells are well aerated. Bones/joints: Unremarkable. No acute calvarial fracture. Soft tissues: Unremarkable. Vasculature: Atherosclerotic calcifications in the intracranial segments of bilateral internal carotid arteries and bilateral vertebral arteries. CT/CT head thrombolytic [id number] IMPRESSION: 1. No acute intracranial findings and no significant change. 2. Stable encephalomalacia in the left frontal lobe and left temporal lobe. 3. Chronic microvascular ischemic changes in bilateral periventricular white matter. ASSESSMENT: ASPECTS ([place] Stroke Program Early CT Score) is 10.
[2023-10-03 03:30] LABS: Basophils % 0.3 %; Eosinophils # 0.1 10^3/uL (0.0-0.8); Eosinophils % 1.8 %; Hematocrit 42.3 % (37-53); Lymphocytes # 0.7 10^3/uL (0.8-4.8); Lymphocytes % 10.1 %; Mean Corpuscular HGB Conc 28.8 g/dL (30-55); Mean Corpuscular Volume 83.1 fl (82-101); Mean Platelet Volume 10.8 fL (7.4-10.4); Monocytes # 0.6 10^3/uL (0.2-0.9); Monocytes % 7.8 %; Neutrophils # 5.82 10^3/uL (1.8-7.7); Neutrophils % 79.6 %; Nucleated Red Blood Cells % 0 %; Platelet Count 125 10^3/cmm (157-399); Red Blood Count 5.09 10^6/uL (3.85-5.65); Red Cell Distribution Width 17.3 % (12.1-15.1); White Blood Count 7.31 10^3/uL (3.29-11.43)
--- NOTE | 2023-10-03 03:32 | ECG_ITS ---
[facility] Test Date: 2023-10-03 Pat Name: Shaila Galvan Department: Room: Gender: Male Area Secretary: : 1940 Requested By: Adeel Nation Order Number: [id number] Amina MD: Cade Busch M.D. Measurements Intervals [place] Rate: 88 P: 0 SD: 0 QRS: -20 QRSD: 133 T: 136 QT: 400 QTc: 486 Interpretive Statements ATRIAL FIBRILLATION with significant baseline artifact INTRAVENTRICULAR CONDUCTION DELAY [130+ ms QRS DURATION] POSSIBLE ANTERIOR MYOCARDIAL INFARCTION , PROBABLY OLD [30 ms Q WAVE IN V3/V4, OR R < 0.2 mV IN V4] Compared to ECG 01/10/2018 02:58:28 Intraventricular conduction delay now present T-wave abnormality no longer present Possible ischemia no longer present Myocardial infarct finding still present Electronically Signed On 10-03-2023 8:14:22 CDT by Cade Busch M.D. [id number]
[2023-10-03 03:33] LABS: Partial Thromboplastin Time 33.1 SECONDS (23.9-36.7)
[2023-10-03 03:35] LABS: Glucose Point of Care 157 mg/dL (70-110)
[2023-10-03 03:41] LABS: Troponin(5th) Baseline 58 ng/L (0-15)
[2023-10-03 03:48] LABS: Alanine Aminotransferase 7 U/L (0-41); Albumin Level 4.6 g/dL (3.5-5.2); Alkaline Phosphatase 80 U/L (40-130); Anion Gap 17.9 (5-19); Aspartate Amino Transferase 15 U/L (0-40); Blood Urea Nitrogen 21 mg/dL (8-23); C Reactive Protein 29.2 mg/L (0.0-4.9); Calcium 10.2 mg/dL (8.5-10.5); Carbon Dioxide 24 mmol/L (22-29); Chloride 102 mmol/L (98-107); Creatinine Clr Calc Pharmacy 56.8219; Globulin 2.8 g/dL (1.3-4.6); Glucose 149 mg/dL (65-115); Magnesium 2.1 mg/dL (1.7-2.3); Osmolality Calculated 294 mOsm/kg (285-295); Potassium 4.9 mmol/L (3.5-5.1); Sodium 139 mmol/L (136-145); Thyroid Stimulating Hormone 11.74 uIU/mL (0.27-4.20); Total Bilirubin 0.8 mg/dL (0.15-1.2); Total Protein 7.4 g/dL (6.6-8.7); Uric Acid 4.6 mg/dL (3.4-7.0)
[2023-10-03 03:55] LABS: Alcohol Level < 10 mg/dL (0-10)
[2023-10-03] MEDS: ketorolac 30 mg/mL INJ IVP (04:20)
[2023-10-03 04:32] LABS: Procalcitonin 0.11 ng/mL (0-0.5)
[2023-10-03 04:47] LABS: Influenza A by IFA negative (Negative); Influenza B by IFA negative (Negative); SARS Covid-2 Antigen negative (Negative)
[2023-10-03] MEDS: ondansetron 2 mg/ML SDV 2 mL 4 MG IVP (04:50)
[2023-10-03] MEDS: morphine 4 mg/mL SDV 1 mL IVP (04:53)
[2023-10-03] MEDS: sodium chloride 0.9% 500 ML 999 ML IV (05:09)
--- NOTE | 2023-10-03 05:22 | ECG_ITS ---
[facility] Test Date: 2023-10-03 Pat Name: Shaila Galvan Department: Room: Gender: Male Drafting Engineer: : 1940 Requested By: Adeel Nation Order Number: [id number] Amina MD: Cade Busch M.D. Measurements Intervals [place] Rate: 76 P: 0 [place]: 0 QRS: -38 QRSD: 125 T: 140 QT: 421 QTc: 475 Interpretive Statements Indeterminate regular rhythm due to baseline artifact LEFT AXIS DEVIATION [QRS AXIS < -30] POSSIBLE ANTERIOR MYOCARDIAL INFARCTION , OF INDETERMINATE AGE [30 ms Q WAVE IN V3/V4, OR R < 0.2 mV IN V4] MODERATE T-WAVE ABNORMALITY, CONSIDER LATERAL ISCHEMIA [-0.1+ mV T-WAVE IN I/aVL/V5/V6] Compared to ECG 10/03/2023 03:32:11 Left-axis deviation now present T-wave abnormality now present Possible ischemia now present Atrial fibrillation no longer present Myocardial infarct finding still present Electronically Signed On 10-03-2023 8:19:29 CDT by Cade Busch M.D. [id number]
[2023-10-03] MEDS: cefTRIAXone 1,000 MG in sodium chloride 0.9% (plus) 50 ML 100 MG IV (05:40)
[2023-10-03 06:04] LABS: Troponin 5 2HR 52.58 ng/L (0-15); Troponin 5 2HR Delta -5.42 ABS# (0-10)
[2023-10-03 06:06] LABS: Lactic Sepsis W/Reflex 1.4 mmol/L (0.5-2.2)
[2023-10-03] MEDS: azithromycin 500 MG in sodium chloride 0.9% 250 ML 250 MG IV (06:49)
[2023-10-03] MEDS: sodium chloride 0.9% 500 ML 1000 ML IV (08:05)
[2023-10-03 09:10] LABS: Troponin 5 6HR 53.25 ng/L (0-15)
[2023-10-03 09:13] LABS: Troponin 5 6HR Delta -4.75 ng/L (0-12)
--- NOTE | 2023-10-03 09:13 | PC.RESP ---
ekg due 10/03/23 @ 0922 cancelled per verbal order from dr. pappas. requested ekg be cancelled stating that she would just order another if she felt it was needed.
--- NOTE | 2023-10-03 09:33 | PM.HP ---
Providers/Chief Complaint Admitting Physician: Angela Elias MD Primary Care Provider: Candice Thakkar MD Chief Complaint: PAIN ALL OVER History of Present Illness Shaila Galvan is a 83 year old male with history of ischemic heart disease, cardiomyopathy EF of 25 to 30%, chronic gout, peripheral arterial disease, GERD, hyperlipidemia, congestive heart failure, CKD, stroke, pulmonary embolism on Eliquis, diabetes was brought in by family for complaint of increased shortness of breath and instability since 2 days. As per the at bedside she reports he has had chronic productive cough since stroke in 2018. Since last 2 days she has been noticing him getting increased shortness of breath, not able to walk, and weakness. There is no history of fever cold chest pain nausea vomiting diarrhea or sick contact. She mentions they have been gardening for the last 1 week and she noticed him having difficulty maintaining his balance. He is not on any home oxygen therapy In ER he was found to have difficulty finding words and unable to speak in full sentences. He was found to be hypoxic and was started on 2 L nasal cannula. Influenza A, B and SARS COVID 2 was negative. Review of Systems General: Reports: 10 or more systems reviewed and unremarkable except in HPI and below Medications/Allergies Home Medications Medication Instructions Recorded Confirmed Last Taken Type pen needle, diabetic 31 gauge x #100 ea 01/20/23 10/03/23 Unknown Rx 10/27 (TechLITE Pen Needle) sacubitril 24 mg-valsartan 26 mg 1 tab PO BID #180 tabs 05/17/23 10/03/23 10/02/23 Rx tablet (Entresto) exenatide microspheres 2 mg/0.85 2 mg (0.85 mL) SUBCUT Q7D #10.2 mL 05/31/23 10/03/23 09/26/23 Rx mL subcutaneous auto-injector (ByPerSay) apixaban 5 mg tablet (Eliquis) 5 mg PO BID #180 tabs 07/30/23 10/03/23 10/02/23 Rx amlodipine 2.5 mg tablet 2.5 mg PO DAILY #90 tabs 08/27/23 10/03/23 10/02/23 Rx allopurinol 300 mg tablet 300 mg PO DAILY 10/03/23 10/03/23 10/02/23 History furosemide 20 mg tablet 40 mg PO BID PRN Edema 10/03/23 10/03/23 Unknown History gabapentin 800 mg tablet 800 mg PO BID 10/03/23 10/03/23 10/02/23 History insulin detemir U-100 100 unit/mL 60 unit SUBCUT BID 10/03/23 10/03/23 10/02/23 History (3 mL) subcutaneous pen (Levemir FlexPen) metoprolol succinate 25 mg 25 mg PO DAILY 10/03/23 10/03/23 10/02/23 History tablet,extended release 24 hr pantoprazole 40 mg tablet,delayed 40 mg PO DAILY 10/03/23 10/03/23 10/02/23 History release rosuvastatin 5 mg tablet 5 mg PO DAILY 10/03/23 10/03/23 10/03/23 History Allergies Allergy/AdvReac Type Severity Reaction Status Date / Time guaifenesin [From Mucinex] Allergy Unknown Unknown Verified 09/22/23 09:30 duloxetine [From Cymbalta] Allergy Unknown Verified 09/22/23 09:30 lorazepam [From Ativan] Allergy Unknown Verified 09/22/23 09:30 pregabalin [From Lyrica] Allergy Unknown Verified 09/22/23 09:30 PFSH Acute PFSH: Medical History (Updated 10/03/23 @ 09:40 by Sera Aquino MD) Ischemic cardiomyopathy Anticoagulation adequate with anticoagulant therapy Varicose veins of bilateral lower extremities with other complications Claudication Chronic gout History of stroke PAD (peripheral artery disease) CAD (coronary artery disease) Diabetic peripheral neuropathy Chronic pain disorder Insomnia GERD (gastroesophageal reflux disease) Hyperlipidemia Diabetes CHF (congestive heart failure) CKD (chronic kidney disease) Hypertension Pulmonary embolism Hernia Surgical History H/O heart bypass surgery Hx of cholecystectomy Family History Other Diabetes Hyperlipidemia Hypertension Social History Smoking and tobacco/nicotine status: former use of tobacco/nicotine (quit 2002 HX 30 yr smoker) Alcohol intake: current Alcohol intake frequency: holidays/special occasions only Substance/Drug Use: never Household members: spouse Marital status: Current gender identity: Male Vitals/I&O/Wt Last Vital Signs Temp 99.2 F 10/03/23 03:04 Pulse 69 10/03/23 07:00 Resp 26 H 10/03/23 06:24 BP 104/52 10/03/23 07:00 Pulse Ox 95 10/03/23 07:00 O2 Del Method Nasal Cannula 10/03/23 06:24 O2 Flow Rate 2 10/03/23 06:24 10/02/23 10/03/23 10/03/23 22:59 06:59 14:59 Intake Total 550 / 550 250 / 250 Balance 550 / 550 250 / 250 Weight last 48 hrs Weight 91.626 kg Physical Exam Narrative: He is alert awake oriented x 3, in mild acute distress Chest bilateral decreased air entry, fine rhonchi present at bilateral bases, no wheezing He is on 2 L nasal cannula Cardiovascular normal heart sounds, no murmurs Abdomen soft nontender nondistended normal bowel sounds Extremities no edema noted bilaterally lower extremity Data 10/03/23 03:13 10/03/23 03:13 Micro: Microbiology 10/03/23 05:35 Blood Culture - Preliminary Blood SPECIMEN COLLECTED 10/03/23 05:39 Blood Culture - Preliminary Blood SPECIMEN COLLECTED A&P Assessment and plan (1) Community acquired pneumonia: (2) Abnormal TSH: (3) Ischemic cardiomyopathy: (4) Anticoagulation adequate with anticoagulant therapy: (5) Chronic gout: (6) CAD (coronary artery disease): (7) PAD (peripheral artery disease): (8) GERD (gastroesophageal reflux disease): Qualifiers: Esophagitis presence: without esophagitis Qualified Code(s): K21.9 - Gastro-esophageal reflux disease without esophagitis (9) Hyperlipidemia: Qualifiers: Hyperlipidemia type: mixed hyperlipidemia Qualified Code(s): E78.2 - Mixed hyperlipidemia (10) Diabetes: Qualifiers: Diabetes mellitus type: type 2 Diabetes mellitus long lines operator insulin use: without long lines operator use Diabetes mellitus complication status: with neurologic complications Diabetes mellitus complication detail: with unspecified neuropathy Qualified Code(s): E11.40 - Type 2 diabetes mellitus with diabetic neuropathy, unspecified (11) CHF (congestive heart failure): Qualifiers: Heart failure type: diastolic Heart failure chronicity: chronic Qualified Code(s): I50.32 - Chronic diastolic (congestive) heart failure (12) Hypertension: Qualifiers: Hypertension type: essential hypertension Qualified Code(s): I10 - Essential (primary) hypertension (13) Pulmonary embolism: Qualifiers: Pulmonary embolism type: unspecified Chronicity: unspecified Acute cor pulmonale presence: unspecified Qualified Code(s): I26.99 - Other pulmonary embolism without acute cor pulmonale (14) CKD (chronic kidney disease): Plan 83 year old male with history of ischemic heart disease, cardiomyopathy EF of 25 to 30%, chronic gout, peripheral arterial disease, GERD, hyperlipidemia, congestive heart failure, CKD, stroke, pulmonary embolism on Eliquis, diabetes ex-smoker quit 20 years ago was brought in by family for complaint of increased shortness of breath and instability since 2 days. As per the at bedside she reports he has had chronic productive cough since stroke in 2018. Since last 2 days she has been noticing him getting increased shortness of breath, not able to walk, and weakness. There is no history of fever cold chest pain nausea vomiting diarrhea or sick contact. She mentions they have been gardening for the last 1 week and she noticed him having difficulty maintaining his balance. He is not on any home oxygen therapy In ER he was found to have difficulty finding words and unable to speak in full sentences. He was found to be hypoxic and was started on 2 L nasal cannula. Influenza A, B and SARS COVID 2 was negative. And chest x-ray showed IMPRESSION: 1. Patchy airspace opacities in bilateral lung bases, which likely represent bilateral lower lobe pneumonia. 2. Cardiac silhouette is mildly enlarged. likely to due community-acquired pneumonia Absence of leukocytosis Continue IV fluids normal saline at 60 ml per hour Continue supplemental oxygen to keep saturation more than 90% Will continue with IV ceftriaxone 1 g daily IV azithromycin 500 mg daily DuoNebs every 6 hours Incentive spirometer Will check for respiratory panel Unsteady gait on admission-CT head done to rule out acute stroke Unsteadiness likely due to pneumonia and weakness. Will do a PT eval and treatment Abnormal TSH-likely due to hypothyroidism Will start on p.o. levothyroxine 25 mcg daily. Cardiac diet Resume home medications DVT prophylaxis, he is already on Eliquis GI prophylaxis with IV Pepcid 20 mg twice daily CODE STATUS discussed with family, and son at bedside, he is full code for now Attestations Medical Necessity Statement*: He needs continued hospitalization for more than 2 midnights for management of bilateral lower lobe pneumonia with IV antibiotics IV fluids DuoNebs and to screen for respiratory panel Time Spent in Patient Care: 30 minutes Coding Level of Care Code Acute Code for Chg Fwd Diagnoses Community acquired pneumonia J18.9 Abnormal TSH R79.89 Ischemic cardiomyopathy I25.5 Anticoagulation adequate with anticoagulant therapy Z79.01 Chronic gout [id number] CAD (coronary artery disease) I25.10 PAD (peripheral artery disease) I73.9 Gastroesophageal reflux disease without esophagitis K21.9 Esophagitis presence: without esophagitis Mixed hyperlipidemia E78.2 Hyperlipidemia type: mixed hyperlipidemia Type 2 diabetes mellitus with diabetic neuropathy, without long-term current use of insulin E11.40 Diabetes mellitus type: type 2 Diabetes mellitus long lines operator insulin use: without long lines operator use Diabetes mellitus complication status: with neurologic complications Diabetes mellitus complication detail: with unspecified neuropathy Chronic diastolic congestive heart failure I50.32 Heart failure type: diastolic Heart failure chronicity: chronic Essential hypertension I10 Hypertension type: essential hypertension Pulmonary embolism, unspecified chronicity, unspecified pulmonary embolism type, unspecified whether acute cor pulmonale present I26.99 Pulmonary embolism type: unspecified Chronicity: unspecified Acute cor pulmonale presence: unspecified CKD (chronic kidney disease) N18.9 Time Spent (min) 30
[2023-10-03] MEDS: famotidine 20 mg/2 mL INJ IVP ×2 (11:25→22:37)
[2023-10-03] MEDS: allopurinol 300 mg Tablet PO (11:25)
[2023-10-03] MEDS: acetaminophen 325 mg Tablet 650 MG PO (11:26)
[2023-10-03] MEDS: apixaban 5 mg Tablet PO ×2 (11:30→17:04)
[2023-10-03] MEDS: metoprolol succinate ER (24 HR) 25 mg Tablet PO (11:31)
[2023-10-03] MEDS: sodium chloride 0.9% 1,000 ML 60 ML IV (11:32)
[2023-10-03] MEDS: ipratropium-albuterol 3 mL Neb INHALATION (13:57)
[2023-10-03 14:50] LABS: Adenovirus Not Detected (NOT DETECT); Chlamydia Pneumoniae Not Detected (NOT DETECT); Coronavirus 229E,HKU1,NL63,OC4 Not Detected (NOT DETECT); Human Metapneumovirus Not Detected (NOT DETECT); Human Rhinovirus/Enterovirus Not Detected (NOT DETECT); Influenza A Not Detected (NOT DETECT); Influenza A H1 Not Detected (NOT DETECT); Influenza A H1-2009 Not Detected (NOT DETECT); Influenza A H3 Not Detected (NOT DETECT); Influenza B Not Detected (NOT DETECT); Mycoplasma Pneumoniae Not Detected (NOT DETECT); Parainfluenza Virus Type 1 Not Detected (NOT DETECT); Parainfluenza Virus Type 2 Not Detected (NOT DETECT); Parainfluenza Virus Type 3 Not Detected (NOT DETECT); Parainfluenza Virus Type 4 Not Detected (NOT DETECT); Respiratory Syncytial Virus A Not Detected (NOT DETECT); Respiratory Syncytial Virus B Not Detected (NOT DETECT); SARS-COV-2 Not Detected (NOT DETECT)
[2023-10-03] MEDS: gabapentin 400 mg Capsule 800 MG PO (17:03)
[2023-10-03] MEDS: insulin glargine 100 units/1 mL 60 UNIT SUBCUT (17:04)
[2023-10-03] MEDS: sacubitril/valsartan 24-26 mg Tablet 1 EACH PO (17:04)
[2023-10-03 17:16] LABS: Glucose Point of Care 142 mg/dL (70-110)
--- NOTE | 2023-10-03 18:26 | ECG_ITS ---
[facility] Test Date: 2023-10-03 Pat Name: Shaila Galvan Department: Room: 269 Gender: Male Hplc Chemist: : 1940 Requested By: Sera Aquino Order Number: [id number] Amina MD: Cade Busch M.D. Measurements Intervals [place] Rate: 66 P: -55 [place]: 123 QRS: -9 QRSD: 128 T: 166 QT: 444 QTc: 465 Interpretive Statements SINUS RHYTHM POSSIBLE ANTERIOR MYOCARDIAL INFARCTION , OF INDETERMINATE AGE [30 ms Q WAVE IN V3/V4, OR R < 0.2 mV IN V4] MODERATE T-WAVE ABNORMALITY, CONSIDER LATERAL ISCHEMIA [-0.1+ mV T-WAVE IN I/aVL/V5/V6] Compared to ECG 10/03/2023 05:49:55 Left-axis deviation no longer present Myocardial infarct finding still present T-wave abnormality still present Possible ischemia still present Electronically Signed On 10-04-2023 15:01:45 CDT by Cade Busch M.D. [id number]
--- NOTE | 2023-10-03 18:47 | PC.NURSE ---
Pt comes to floor agitated; however, as this shift progresses pt becomes more agitated. This is, according to friends and family, not the pt baseline. As the shift progresses pt becomes shaky and holds head as if in pain. Son states pt did this in the ER as well. Pt yells at this nurse that he does not have a headache and wants to be left alone. Telemetry at this time shows a HR of 154. This RN gets EKG; however, telemetry shows the pt HR returns to 66 while applying EKG. EKG given to Dr. Aquino, whom states this is no change from previous EKG completed in the ER. HR continues to be within normal limits. Dr. Aquino signs EKG. Dr. Aquino assesses pt and has no new orders at this time.
[2023-10-03 20:40] LABS: Glucose Point of Care 129 mg/dL (70-110)
[2023-10-04] VITALS (10 sets, daily range): BP systolic 78–165; BP diastolic 46–68; PULSE 64–92; RESP 16–20; TEMP 36.3–36.8; O2SAT 88–97
--- NOTE | 2023-10-04 04:52 | PC.NURSE ---
Patient noted to be SOB during rounds, fine crackles auscultated in lung farris, Dr. Gomez notified, new orders received to pause fluids for the remainder of shift.
[2023-10-04] MEDS: HYDROcodone-acetaminophen 5-325 mg Tablet 1 TAB PO (05:12)
[2023-10-04] MEDS: levothyroxine 25 mcg Tablet PO (05:12)
[2023-10-04 06:15] LABS: Glucose Point of Care 137 mg/dL (70-110)
[2023-10-04 06:18] LABS: Basophils % 0.4 %; Eosinophils # 0.2 10^3/uL (0.0-0.8); Eosinophils % 2.9 %; Lymphocytes # 0.5 10^3/uL (0.8-4.8); Lymphocytes % 8.9 %; Mean Corpuscular HGB Conc 28.6 g/dL (30-55); Mean Corpuscular Hemoglobin 24.2 pg (27-33); Mean Corpuscular Volume 84.7 fl (82-101); Mean Platelet Volume 9.9 fL (7.4-10.4); Monocytes # 0.5 10^3/uL (0.2-0.9); Monocytes % 8.9 %; Neutrophils # 4.33 10^3/uL (1.8-7.7); Neutrophils % 78.4 %; Nucleated Red Blood Cells % 0 %; Platelet Count 84 10^3/cmm (157-399); Red Blood Count 4.13 10^6/uL (3.85-5.65); Red Cell Distribution Width 17.4 % (12.1-15.1); White Blood Count 5.52 10^3/uL (3.29-11.43)
[2023-10-04 06:37] LABS: Alanine Aminotransferase < 5 U/L (0-41); Albumin Level 3.6 g/dL (3.5-5.2); Alkaline Phosphatase 61 U/L (40-130); Anion Gap 12.8 (5-19); Aspartate Amino Transferase 15 U/L (0-40); Blood Urea Nitrogen 24 mg/dL (8-23); Calcium 8.9 mg/dL (8.5-10.5); Carbon Dioxide 22 mmol/L (22-29); Chloride 108 mmol/L (98-107); Creatinine Clr Calc Pharmacy 50.4991; Globulin 2.4 g/dL (1.3-4.6); Glucose 142 mg/dL (65-115); Osmolality Calculated 292 mOsm/kg (285-295); Potassium 4.8 mmol/L (3.5-5.1); Sodium 138 mmol/L (136-145); Total Bilirubin 0.5 mg/dL (0.15-1.2)
[2023-10-04] MEDS: azithromycin 500 MG in sodium chloride 0.9% 250 ML 250 MG IV (06:40)
[2023-10-04 06:49] LABS: NT Pro B Type Natriuretic Pept 9911 pg/mL (0-450)
[2023-10-04] MEDS: gabapentin 400 mg Capsule 800 MG PO (08:26)
[2023-10-04] MEDS: sacubitril/valsartan 24-26 mg Tablet 1 EACH PO (08:26)
[2023-10-04] MEDS: amlodipine 5 mg Tablet PO (08:27)
[2023-10-04] MEDS: apixaban 5 mg Tablet PO ×2 (08:27→17:29)
[2023-10-04] MEDS: allopurinol 300 mg Tablet PO (08:27)
[2023-10-04] MEDS: metoprolol succinate ER (24 HR) 25 mg Tablet PO (08:27)
[2023-10-04] MEDS: famotidine 20 mg/2 mL INJ IVP ×2 (08:27→22:33)
[2023-10-04] MEDS: atorvastatin 40 mg Tablet 20 MG PO (08:27)
[2023-10-04] MEDS: cefTRIAXone 1,000 MG in sodium chloride 0.9% (plus) 50 ML 100 MG IV (08:28)
[2023-10-04] MEDS: insulin glargine 100 units/1 mL 60 UNIT SUBCUT (08:32)
[2023-10-04] MEDS: ipratropium-albuterol 3 mL Neb INHALATION (09:13)
--- NOTE | 2023-10-04 10:03 | PC.CHAP ---
Pastoral Care Encounter/Spiritual Assessment Type of Contact [] Declined surface logging systems logger visit [] Patient/Family/Request visit [] Outpatient visit [] Follow-up visit [] Physician referral [] Code/Alert [x] Routine visit [] Staff referral [] Actively dying [] Patient sleeping [x] Family support [] [] Out of room [] Palliative care [] [] Receiving care in room [] Pre-surgical visit [] Trauma [] Long length of stay [] ICU visit [] Other: Relational/Emotional Strength [] Patient feels connected with others/family/visitors/staff [] Distress [] Loneliness/isolation [] Abandonment Spirituality of Patient [x] Person of Myra [] Attends Scientologist of their Myra [x] Believes in Prayer [] Reads Bible or Holiness materials [] There are Spiritual issues to be addressed Timber Harvester Operator Interventions [x] Prayer [x] Active listening [] Non-anxious presence [] Spiritual/emotional support [] Crisis/trauma care [] Spiritual counseling [] Bereavement support [] Provided bereavement packet [x] Provided Bible/devotional materials [] Provided toy/stuffed animal, coloring book to patient or family member [] Provided Communion [] Anointing/[facility] [] Salvation [x] Completed spiritual assessment [] Other: Impact on Illness or Injury [] Angry [] Fearful [] Anxious [] Often cries [] Exhaustion [] Unable to work [] Unable to attend methodist [] Unable to walk/stand [] Unable to read [] Unable to drive [] Unable to eat/drink [] Unable to sleep [] Unable to be with family [] Patient intubated [] Other: Summary Time spent with patient 10 min
--- NOTE | 2023-10-04 11:48 | PC.NURSE ---
Pt refused medications. Increased agitation. Oxygen saturation at 95% on room air. Reassessed with Dr. Méndez.
--- NOTE | 2023-10-04 12:51 | PC.NURSE ---
Pt refused lunch. States that the healthcare system is poisoning [him] to kill [him] off.
[2023-10-04] MEDS: OLANZapine 10 mg VIAL 5 MG IM (14:14)
--- NOTE | 2023-10-04 14:18 | PC.SOCIAL ---
IMM Update Pg. 2 of IMM updated and reviewed. Copy provided.
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
--- NOTE | 2023-10-04 15:32 | PM.PN ---
Subjective Subjective: Patient was seen early this morning, alert and pleasant and discussed plan of adding diuretic back. However throughout the day behavior escalated, he became significantly paranoid, worried people were poisoning him and were keeping him here against as well. This escalated to a significant amount that it was obvious the patient was psychotic. Family tried to calm him. They did report he has some of these types of behaviors at home usually at night but they are more controllable. Other family members acknowledge that he likely has some underlying dementia. Unfortunately, he could not be calm and and required sedation so a 96-hour hold was initiated. This was secondary to his psychosis with potential for harm as he could not understand the implications of his current decisions and how they would affect him medically. Medications: Reviewed: Yes Vitals/I&O/Wt Last Vital Signs Temp 97.4 F L 10/04/23 12:19 Pulse 66 10/04/23 12:19 Resp 17 10/04/23 12:19 BP 113/65 10/04/23 12:19 Pulse Ox 94 10/04/23 12:19 O2 Del Method Room Air 10/04/23 12:19 O2 Flow Rate 2 10/04/23 08:00 10/04/23 10/04/23 10/04/23 06:59 14:59 22:59 Intake Total 800 / 2750 1260 / 1260 Output Total 350 / 350 Balance 450 / 2400 1260 / 1260 Weight last 48 hrs Weight 99.291 kg Weight 91.626 kg Weight 91.626 kg Physical Exam Narrative: General exam currently, agitated. Neurologic: No obvious focal deficits Cardiovascular regular rate and rhythm, no murmur Lungs clear Abdomen is soft Extremities no cyanosis clubbing or edema Data 10/04/23 05:52 10/04/23 05:52 Micro: Microbiology 10/03/23 05:35 Blood Culture - Preliminary Blood NEGATIVE TO DATE 10/03/23 05:39 Blood Culture - Preliminary Blood NEGATIVE TO DATE A&P Assessment and plan (1) Psychosis: Patient currently with psychosis After visiting with the family I believe he has some underlying dementia, likely with behaviors. Since he is ill, and out of his usual setting I think this is escalated significantly. Zyprexa 5 mg IM given x 1 Psychiatric consult 96-hour hold, appropriate paperwork filled out Initiate low-dose Zyprexa 2.5 mg twice daily, deferring to psychiatry should they have other recommendations Check ammonia level tomorrow. (2) CHF (congestive heart failure): Patient was admitted with concern of acute CHF Lasix 40 mg IV was attempted this morning but patient refused After deal escalating his situation we will try to start his home Lasix 40 mg twice daily which he apparently takes at home. BMP in the morning At this point we will try to avoid IV Lasix Qualifiers: Heart failure type: diastolic Heart failure chronicity: chronic Qualified Code(s): I50.32 - Chronic diastolic (congestive) heart failure (3) Acute kidney injury: Patient has some increase in his creatinine Bladder scan to make sure no urinary retention is occurring. BMP tomorrow Discontinue IV fluids, this could lead to worsening renal function Hold Entresto currently secondary to valsartan component, lower blood pressures noted this morning. (4) Anemia: Pepcid IV Iron studies B12 Stool Hemoccult (5) Thrombocytopenia: Repeat CBC tomorrow. With thrombocytopenia, and anemia could consider myelodysplasia (6) Diabetes: Sliding scale insulin No evidence of hypoglycemia currently Qualifiers: Diabetes mellitus type: type 2 Diabetes mellitus termite treater helper insulin use: without termite treater helper use Diabetes mellitus complication status: with neurologic complications Diabetes mellitus complication detail: with unspecified neuropathy Qualified Code(s): E11.40 - Type 2 diabetes mellitus with diabetic neuropathy, unspecified (7) Community acquired pneumonia: Continue Rocephin Discontinue Zithromax, changed to doxycycline X-ray abnormality could also be heart failure. (8) Abnormal TSH: Continue low-dose levothyroxine (9) Pulmonary embolism: Continue patient's apixaban Qualifiers: Pulmonary embolism type: unspecified Chronicity: unspecified Acute cor pulmonale presence: unspecified Qualified Code(s): I26.99 - Other pulmonary embolism without acute cor pulmonale Plan Multiple other medical problems outlined in past medical history Full code Apixaban will suffice for DVT prophylaxis Attestations Medical Necessity Statement*: Requires continued hospitalization for treatment of psychosis. Diagnoses Psychosis F29 Chronic diastolic congestive heart failure I50.32 Heart failure type: diastolic Heart failure chronicity: chronic Acute kidney injury N17.9 Anemia D64.9 Thrombocytopenia D69.6 Type 2 diabetes mellitus with diabetic neuropathy, without long-term current use of insulin E11.40 Diabetes mellitus type: type 2 Diabetes mellitus nursing home insulin use: without termite treater helper use Diabetes mellitus complication status: with neurologic complications Diabetes mellitus complication detail: with unspecified neuropathy Community acquired pneumonia J18.9 Abnormal TSH R79.89 Pulmonary embolism, unspecified chronicity, unspecified pulmonary embolism type, unspecified whether acute cor pulmonale present I26.99 Pulmonary embolism type: unspecified Chronicity: unspecified Acute cor pulmonale presence: unspecified Time Spent (min) 43
[2023-10-04] MEDS: FUROsemide 40 mg Tablet PO (15:54)
--- NOTE | 2023-10-04 15:55 | PC.NURSE ---
96 hr rights reviewed with patient with assistance of [facility] event security officer Waldo @0700. Patient's son and in room during rights being served. Patient became agitated with [facility] nursing staff and event security officer during 96 hr initiated process, and began to swinging at Primary RN Brandie. Pt also made verbal threats towards primary RN @this time. probation officer Waldo was able to stop patient from making contact with RN attempting to give patient ordered IM injection of Zyprexa. Code 10 called and then later canceled after patient received IM injection. HS wheeled out of room when code 10 was initially called as a lot of staff members entered the room and patient was becoming physically assaultive towards staff around him. Patient copy left at bedside with the patient. PSA assigned to sit with patient after 96 hr rights were given.
[2023-10-04 16:28] LABS: Ferritin 37 ng/mL (30-400); Iron 29 ug/dL (59-158); Total Iron Binding Capacity 290 mcg/dl; Unsaturated Iron Binding 261 ug/dL (112-347); Vitamin B12 645 pg/mL (232-1245)
[2023-10-04] MEDS: OLANZapine 5 mg TABLET 2.5 MG PO (17:29)
[2023-10-04] MEDS: doxycycline 100 mg Tablet PO (17:29)
[2023-10-04 17:38] LABS: Glucose Point of Care 107 mg/dL (70-110)
[2023-10-04 18:51] LABS: Amphetamines Screen Urine Negative (Negative); Barbiturates Screen Urine Negative (Negative); Benzodiazepines Screen Urine Negative (Negative); Cocaine Screen Urine Negative (Negative); Opiate Screen Urine Positive (Negative); PCP Screen Urine Negative (Negative); THC Screen Urine Negative (Negative)
[2023-10-04 19:10] LABS: Add Urine Microscopic? YES; Bilirubin Urine 1+ (Negative); Blood Urine Neg (Negative); Glucose Urine UA Norm (Normal); Ketones Urine 1+ (Negative); Leukocyte Esterase Urine Trace (Negative); Nitrate Urine Negative (Negative); Protein Urine 3+ (Negative); Urine Appearance Clear (CLEAR); Urine Color Yellow (Yellow); Urobilinogen Urine 1 mg/dL (Negative); pH Urine 5 (5-7)
[2023-10-04 19:11] LABS: Add Urine Culture? No; Bacteria Urine 1+ /hpf; Mucus Urine TRACE /hpf; Squamous Epithelial Cell Urine RARE /hpf (0-5); WBC Urine 0-4 /hpf (0-5)
[2023-10-04] MEDS: sodium chloride 0.9% 1,000 ML 999 ML IV (20:17)
[2023-10-04] MEDS: OLANZapine 10 mg VIAL IM (20:37)
[2023-10-05] VITALS (13 sets, daily range): BP systolic 95–121; BP diastolic 57–66; PULSE 64–89; RESP 16–18; TEMP 36.4–36.7; O2SAT 91–99
[2023-10-05] MEDS: ondansetron 2 mg/ML SDV 2 mL 4 MG IVP (05:48)
[2023-10-05 06:15] LABS: Glucose Point of Care 105 mg/dL (70-110)
[2023-10-05 06:45] LABS: Alanine Aminotransferase 10 U/L (0-41); Albumin Level 3.6 g/dL (3.5-5.2); Alkaline Phosphatase 70 U/L (40-130); Anion Gap 16.2 (5-19); Aspartate Amino Transferase 20 U/L (0-40); Blood Urea Nitrogen 28 mg/dL (8-23); Carbon Dioxide 21 mmol/L (22-29); Chloride 108 mmol/L (98-107); Creatinine Clr Calc Pharmacy 43.7407; Globulin 2.8 g/dL (1.3-4.6); Glucose 141 mg/dL (65-115); Osmolality Calculated 300 mOsm/kg (285-295); Potassium 4.2 mmol/L (3.5-5.1); Sodium 141 mmol/L (136-145); Total Bilirubin 0.6 mg/dL (0.15-1.2); Total Protein 6.4 g/dL (6.6-8.7)
[2023-10-05 06:52] LABS: Ammonia 52 umol/L (16-60)
[2023-10-05 08:12] LABS: Basophils % 0.3 %; Eosinophils # 0.2 10^3/uL (0.0-0.8); Eosinophils % 2.4 %; Lymphocytes # 0.4 10^3/uL (0.8-4.8); Lymphocytes % 4.7 %; Mean Corpuscular HGB Conc 28.7 g/dL (30-55); Mean Corpuscular Hemoglobin 24.3 pg (27-33); Mean Corpuscular Volume 84.6 fl (82-101); Mean Platelet Volume 10.6 fL (7.4-10.4); Monocytes # 0.4 10^3/uL (0.2-0.9); Monocytes % 4.9 %; Neutrophils # 7.68 10^3/uL (1.8-7.7); Neutrophils % 87.2 %; Nucleated Red Blood Cells % 0 %; Platelet Count 87 10^3/cmm (157-399); Red Blood Count 4.61 10^6/uL (3.85-5.65); Red Cell Distribution Width 17.7 % (12.1-15.1)
[2023-10-05] MEDS: cefTRIAXone 1,000 MG in sodium chloride 0.9% (plus) 50 ML 100 MG IV (08:49)
[2023-10-05] MEDS: famotidine 20 mg/2 mL INJ IVP ×2 (09:14→21:03)
--- NOTE | 2023-10-05 10:05 | P.PN_ITS ---
Subjective 2 Subjective: seen this morning drowsy but able to answer questions says he is at home was startled when told this is a hospital says he is hungry asked me was i being a problem last night?' went back to sleep sitter at bedside Vitals/I&O/Wt Last Vital Signs Temp 97.7 F 10/05/23 03:00 Pulse 87 10/05/23 08:00 Resp 18 10/05/23 08:00 BP 101/65 10/05/23 08:00 Pulse Ox 91 10/05/23 08:00 O2 Del Method Nasal Cannula 10/05/23 08:00 O2 Flow Rate 3 10/05/23 08:00 10/04/23 10/05/23 10/05/23 22:59 06:59 14:59 Intake Total 1480 / 2740 50 / 50 Output Total 500 / 500 Balance 980 / 2240 50 / 50 Weight last 48 hrs Weight 97.114 kg Weight 99.291 kg Weight 91.626 kg Physical Exam 2 Narrative: General exam: drowsy but able to answer questions and follows commands Neurologic: No obvious focal deficits, AOx2, moves all 4 extremities Cardiovascular regular rate and rhythm, no murmur Lungs clear Abdomen is soft Extremities no cyanosis clubbing or edema Data 10/05/23 07:40 10/05/23 06:11 Micro: Microbiology 10/03/23 05:35 Blood Culture - Preliminary Blood NEGATIVE TO DATE 10/03/23 05:39 Blood Culture - Preliminary Blood NEGATIVE TO DATE A&P Assessment and plan (1) Psychosis: Patient currently with psychosis After visiting with the family I believe he has some underlying dementia, likely with behaviors. Since he is ill, and out of his usual setting I think this is escalated significantly. Zyprexa 5 mg IM given x 1 10/04 Psychiatric consult 96-hour hold, appropriate paperwork filled out Initiate low-dose Zyprexa 2.5 mg twice daily, deferring to psychiatry should they have other recommendations. Will continue above today Await psych recs ammonia level tomorrow.- 52 (2) CHF (congestive heart failure): Patient was admitted with concern of acute CHF Lasix 40 mg IV was attempted this morning but patient refused After deal escalating his situation we will try to start his home Lasix 40 mg twice daily which he apparently takes at home. BMP in the morning continue to hold lasix, patient appears euvolemic toda Qualifiers: Heart failure type: diastolic Heart failure chronicity: chronic Qualified Code(s): I50.32 - Chronic diastolic (congestive) heart failure (3) Acute kidney injury: Patient has some increase in his creatinine Bladder scan to make sure no urinary retention is occurring. BMP tomorrow Discontinue IV fluids, this could lead to worsening renal function Hold Entresto currently secondary to valsartan component, lower blood pressures noted this morning. (4) Anemia: Pepcid IV Iron studies B12 Stool Hemoccult (5) Thrombocytopenia: Repeat CBC tomorrow. With thrombocytopenia, and anemia could consider myelodysplasia Will need heme f/u at dc (6) Diabetes: Sliding scale insulin No evidence of hypoglycemia currently Qualifiers: Diabetes mellitus type: type 2 Diabetes mellitus keno terminal operator insulin use: without half-way use Diabetes mellitus complication status: with neurologic complications Diabetes mellitus complication detail: with unspecified neuropathy Qualified Code(s): E11.40 - Type 2 diabetes mellitus with diabetic neuropathy, unspecified (7) Community acquired pneumonia: continue doxycycline X-ray abnormality could also be heart failure. (8) Abnormal TSH: Continue low-dose levothyroxine (9) Pulmonary embolism: Continue patient's apixaban Qualifiers: Pulmonary embolism type: unspecified Chronicity: unspecified Acute cor pulmonale presence: unspecified Qualified Code(s): I26.99 - Other pulmonary embolism without acute cor pulmonale Plan Multiple other medical problems outlined in past medical history Full code Apixaban will suffice for DVT prophylaxis Attestations 2 Medical Necessity Statement*: 96 hour hold, psychosis Diagnoses Psychosis F29 Chronic diastolic congestive heart failure I50.32 Heart failure type: diastolic Heart failure chronicity: chronic Acute kidney injury N17.9 Anemia D64.9 Thrombocytopenia D69.6 Type 2 diabetes mellitus with diabetic neuropathy, without long-term current use of insulin E11.40 Diabetes mellitus type: type 2 Diabetes mellitus keno terminal operator insulin use: without keno terminal operator use Diabetes mellitus complication status: with neurologic complications Diabetes mellitus complication detail: with unspecified neuropathy Community acquired pneumonia J18.9 Abnormal TSH R79.89 Pulmonary embolism, unspecified chronicity, unspecified pulmonary embolism type, unspecified whether acute cor pulmonale present I26.99 Pulmonary embolism type: unspecified Chronicity: unspecified Acute cor pulmonale presence: unspecified
[2023-10-05 10:55] LABS: Glucose Point of Care 133 mg/dL (70-110)
--- NOTE | 2023-10-05 13:01 | W.PM.NPUH&PS ---
Providers/Chief Complaint Admitting Physician: Angela Elias MD Primary Care Provider: Candice Thakkar MD Chief Complaint: PAIN ALL OVER HPI NPU History of Present Illness Shaila Galvan is a 83 year old male who presented to the emergency department with the following report: Chief complaint: General Medical Stated complaint: PAIN ALL OVER Time Seen by Provider: 10/03/23 03:04 History of Present Illness: Patient brought in by EMS with complaints of all over pain. Patient is a diabetic with neuropathy. Per EMS patient was alert and oriented and talking complete sentences when a picked him up but when he got here it it appeared to having a difficulty time finding words at times. Sometimes patient can speak in complete sentences and answer questions other times it seems like patient cannot get the words out. Patient is on Eliquis, patient does have a history of coronary artery disease, [place], PE, CVA. He was admitted to [facility] for definitive treatment of those issues. At some point during his stay there was a code to him called due to his increasingly aggressive and purposeless behaviors. A psychiatric consult was requested to assist with medication management of his condition as well as evaluation for need for more acute mental health services. Secondary to his behaviors he receives Zyprexa last night and during the director of early childhood and when I arrived in his room he was soundly asleep and not arousable but surrounded by family who provided the following information: CHIEF COMPLAINT Abrupt change in behavior, agitation, confusion, difficulty finding words HISTORY OF THE PRESENT COMPLAINT The patient, an 83-year-old male, has been experiencing a change in behavior that was abrupt and significant enough to cause concern among his healthcare providers. The patient's behavior change is suspected to be due to delirium, possibly triggered by the overall situation and the struggles he is facing. The patient has been prescribed 2.5 mg of Zyprexa twice a day to manage his symptoms as of yesterday. However, due to an episode of agitation, the patient was given a total of 15 mg of Zyprexa, which may have contributed to his current state of reduced communication. The patient has been showing signs of cognitive decline over the past few months, such as forgetting words and taking pauses to find specific words. This has not been severe, but it has been noticeable. The patient had a stroke in 2018, after which he has been less steady on his feet and has required some assistance and supervision when out and about. The patient's current behavior is similar to his behavior when he had the stroke, causing confusion and agitation. The patient has been active, engaging in yard work and gardening, which may have led to dehydration. He has also been experiencing pain in recent days. The patient's hearing is impaired, which sometimes causes him to become testy. The patient's and son are usually present, but they have been ill recently. The patient lives in a house with a large yard, which he likes to mow. He also enjoys cooking and has no nutritional concerns. The patient is currently receiving IV treatment and is not on any other medication as he is not taking oral medications due to somnolence. The healthcare team plans to monitor the patient's condition and possibly adjust his medication to help him recover from his likely delirium. MENTAL HEALTH HISTORY No previous psychiatric history mentioned, possible dementia signs in recent months SOCIAL HISTORY Lives in a house with a large yard, likes to mow the lawn, has been doing a lot of gardening recently, possibly leading to dehydration, has a hard time hearing, gets testy when people have to repeat themselves, and son got sick at the same time Meds NPU Home Medications Medication Instructions Recorded Confirmed Last Taken Type pen needle, diabetic 31 gauge x #100 ea 01/20/23 10/03/23 Unknown Rx 10/27 (TechLITE Pen Needle) sacubitril 24 mg-valsartan 26 mg 1 tab PO BID #180 tabs 05/17/23 10/03/23 10/02/23 Rx tablet (Entresto) exenatide microspheres 2 mg/0.85 2 mg (0.85 mL) SUBCUT Q7D #10.2 mL 05/31/23 10/03/23 09/26/23 Rx mL subcutaneous auto-injector (BySpinSnap) apixaban 5 mg tablet (Eliquis) 5 mg PO BID #180 tabs 07/30/23 10/03/23 10/02/23 Rx amlodipine 2.5 mg tablet 2.5 mg PO DAILY #90 tabs 08/27/23 10/03/23 10/02/23 Rx allopurinol 300 mg tablet 300 mg PO DAILY 10/03/23 10/03/23 10/02/23 History furosemide 20 mg tablet 40 mg PO BID PRN Edema 10/03/23 10/03/23 Unknown History gabapentin 800 mg tablet 800 mg PO BID 10/03/23 10/03/23 10/02/23 History insulin detemir U-100 100 unit/mL 60 unit SUBCUT BID 10/03/23 10/03/23 10/02/23 History (3 mL) subcutaneous pen (Levemir FlexPen) metoprolol succinate 25 mg 25 mg PO DAILY 10/03/23 10/03/23 10/02/23 History tablet,extended release 24 hr pantoprazole 40 mg tablet,delayed 40 mg PO DAILY 10/03/23 10/03/23 10/02/23 History release rosuvastatin 5 mg tablet 5 mg PO DAILY 10/03/23 10/03/23 10/03/23 History Allergies Allergy/AdvReac Type Severity Reaction Status Date / Time guaifenesin [From Mucinex] Allergy Unknown Unknown Verified 09/22/23 09:30 duloxetine [From Cymbalta] Allergy Unknown Verified 09/22/23 09:30 lorazepam [From Ativan] Allergy Unknown Verified 09/22/23 09:30 pregabalin [From Lyrica] Allergy Unknown Verified 09/22/23 09:30 PFSH NPU PFSH: Medical History (Updated 10/05/23 @ 20:43 by Aubrey Fall MD) Ischemic cardiomyopathy Anticoagulation adequate with anticoagulant therapy Varicose veins of bilateral lower extremities with other complications Claudication Chronic gout History of stroke PAD (peripheral artery disease) CAD (coronary artery disease) Diabetic peripheral neuropathy Chronic pain disorder Insomnia GERD (gastroesophageal reflux disease) Hyperlipidemia Diabetes CHF (congestive heart failure) CKD (chronic kidney disease) Hypertension Pulmonary embolism Hernia Surgical History H/O heart bypass surgery Hx of cholecystectomy Family History Other Diabetes Hyperlipidemia Hypertension Social History Smoking and tobacco/nicotine status: former use of tobacco/nicotine (quit 2002 HX 30 yr smoker) Alcohol intake: current Alcohol intake frequency: holidays/special occasions only Substance/Drug Use: never Household members: spouse Marital status: Current gender identity: Male Mental Status Exam MSE Comments: This is an overweight versus obese elderly white male looking slightly younger than his stated age in a hospital gown with limited grooming and no eye contact. No abnormal movements currently and sound asleep in no acute distress. Speech was nonexistent and mood not described. Thought process not evaluated. Thought content: No interactions or responses available to make further determination about perceptual disturbances. Attention and concentration not observed in memory unable to be evaluated. He is currently mostly unarousable. Insight, judgment and impulse control not currently observable. Vitals/I&O/Wt Last Vital Signs Temp 97.5 F L 10/05/23 11:49 Pulse 89 10/05/23 11:49 Resp 18 10/05/23 11:49 BP 112/65 10/05/23 11:49 Pulse Ox 97 10/05/23 11:49 O2 Del Method Nasal Cannula 10/05/23 11:49 O2 Flow Rate 3 10/05/23 08:00 10/04/23 10/05/23 10/05/23 22:59 06:59 14:59 Intake Total 1480 / 2740 50 / 50 Output Total 500 / 500 Balance 980 / 2240 50 / 50 Weight last 48 hrs Weight 97.114 kg Weight 99.291 kg Data NPU 10/05/23 07:40 10/05/23 06:11 A&P Assessment and plan (1) Psychosis: (2) Altered mental status: (3) Delirium due to general medical condition: Plan This is a 83-year-old white male with no significant mental health history but fairly recent stroke in 2018 with follow-up at a facility that allow for PT OT etc. after which she returned home with mostly no sequela except for some loss of gait stability who presents with a return of odd, agitated and confused behavior without clear understanding of cause at this point. 1. Continue current medication. 2. Current diagnoses likely to be delirium of unknown cause given there has been no significant history of dementia which would allow for the possibility of this being psychosis against the backdrop of said dementia. 3. Agree with Zyprexa for treatment of delirium at 2.5 mg p.o. twice daily. If patient is not having oral intake or refusing oral intake Zyprexa IM maximum 20 mg in 24 hours in divided doses of 5-10 will be reasonable with p.o. refusal. 4. Will continue to follow and return tomorrow to evaluate with hopefully increase alertness. Attestations NPU Medical Necessity Statement*: N/A. Please see primary team note for medical necessity. Coding Level of Care Code Acute Code for Chg Fwd Diagnoses Psychosis F29 Altered mental status R41.82 Delirium due to general medical condition F05
[2023-10-05 16:47] LABS: Glucose Point of Care 117 mg/dL (70-110)
--- NOTE | 2023-10-05 16:53 | PC.NURSE ---
Dr. Fall rounded on patient this evening and told this nurse to hold the 1800 dose of zyprexa d/t patient being drowsy.
--- NOTE | 2023-10-05 17:54 | PC.NURSE ---
Nursing assistants attempted to get this patient up to chair to eat dinner. Per nursing assistants patient started to get agitated upon transfer. The nursing assistants then came alerted this nurse about the situation. When this nurse entered the room the patient was sitting in the recliner nude demanding to wash himself without the help of the nursing staff. This nurse educated the on the need to have the nursing staff present due to the risk of him falling and hurting himself. The patient then started to become verbally agitated and yelling at nursing staff saying I can go to the [facility] bathroom myself . This nurse along with other nursing staff stayed at bedside to attempt verbal deescalation. After verbal deescalation failed this nurse contacted Dr. Fall. Dr. Fall gave verbal orders for IM Zyprexa. See MAR for details. After administration of Zyprexa patient was willing to let the alarm security or surveillance monitor assist him to the bathroom and back to bed. Patient now resting comfortably in bed with family and 1:1 sitter at bedside.
[2023-10-05] MEDS: OLANZapine 10 mg VIAL IM (18:12)
[2023-10-05 20:45] LABS: Glucose Point of Care 176 mg/dL (70-110)
[2023-10-05] MEDS: acetaminophen 325 mg Tablet 650 MG PO (23:42)
[2023-10-06] VITALS (34 sets, daily range): BP systolic 70–122; BP diastolic 47–84; PULSE 60–130; RESP 16–29; TEMP 36.4–38; O2SAT 90–100
[2023-10-06] MEDS: sodium chloride 0.9% 1,000 ML 999 ML IV (03:45)
[2023-10-06] MEDS: sodium chloride 0.9% 500 ML 999 ML IV (05:02)
[2023-10-06 05:43] LABS: Basophils % 0.5 %; Eosinophils # 0.1 10^3/uL (0.0-0.8); Eosinophils % 1.3 %; Hematocrit 33.7 % (37-53); Lymphocytes # 0.6 10^3/uL (0.8-4.8); Lymphocytes % 15.3 %; Mean Corpuscular HGB Conc 27.6 g/dL (30-55); Mean Corpuscular Hemoglobin 23.8 pg (27-33); Mean Corpuscular Volume 86.4 fl (82-101); Monocytes # 0.6 10^3/uL (0.2-0.9); Monocytes % 15.8 %; Neutrophils # 2.55 10^3/uL (1.8-7.7); Neutrophils % 67.1 %; Nucleated Red Blood Cells % 0 %; Platelet Count 100 10^3/cmm (157-399); Red Cell Distribution Width 17.9 % (12.1-15.1)
[2023-10-06 06:01] LABS: Anion Gap 14.2 (5-19); Blood Urea Nitrogen 35 mg/dL (8-23); Calcium 8.1 mg/dL (8.5-10.5); Carbon Dioxide 20 mmol/L (22-29); Chloride 113 mmol/L (98-107); Creatinine Clr Calc Pharmacy 39.3184; Glucose 101 mg/dL (65-115); Osmolality Calculated 304 mOsm/kg (285-295); Potassium 4.2 mmol/L (3.5-5.1); Sodium 143 mmol/L (136-145)
--- NOTE | 2023-10-06 06:24 | PC.NURSE ---
pt blood Pressures have slowly decreased throughout the nutrition services associate. manuals being 90/56 map 67, 81/56 map 64. the patient was given a liter and a half of NS and the pressure did not improve and was 76/54 map of 61. this nurse called the doctor and the orders were received to tx to ICU. family was notified. vitals before transfer were 92/56, HR 64 rr 16, o2 96% on 2 1/2 liters. pt was transferred at 0625 and given to Germain GANN
--- NOTE | 2023-10-06 06:49 | PC.NURSE ---
Patient arrived in ICU via bed. Patient was oriented to person and place. Vital signs stable.
[2023-10-06 07:31] LABS: Glucose Point of Care 91 mg/dL (70-110)
[2023-10-06] MEDS: pantoprazole 40 mg SDV IVP ×2 (07:56→17:12)
[2023-10-06] MEDS: atorvastatin 40 mg Tablet 20 MG PO (08:03)
[2023-10-06] MEDS: allopurinol 300 mg Tablet PO (08:03)
[2023-10-06] MEDS: OLANZapine 5 mg TABLET 2.5 MG PO ×2 (08:03→17:12)
[2023-10-06] MEDS: cefTRIAXone 1,000 MG in sodium chloride 0.9% (plus) 50 ML 100 MG IV (08:03)
[2023-10-06] MEDS: doxycycline 100 mg Tablet PO ×2 (08:03→17:12)
--- NOTE | 2023-10-06 09:00 | USCV_ITS ---
Shaila Galvan Age: 83 Gender: M : 1940 Exam Date: 10/06/2023 09:22 Ordering Phys: Joelle Dinero MD Technologist: Exam Location: [facility] [place] Indication: hx of cad bypass BP: 109 / 58 HR: 66 Rhythm: Sinus Technical Quality: Suboptimal MEASUREMENTS (Male / Female) Normal Values 2D ECHO LV Diastolic Diameter PLAX 5.2 cm 4.2 - 5.9 / 3.9 - 5.3 cm IVS Diastolic Thickness 1.4 cm 0.6 - 1.0 / 0.6 - 0.9 cm IVS Systolic Thickness 1.6 cm LVPW Diastolic Thickness 1.3 cm 0.6 - 1.0 / 0.6 - 0.9 cm LVPW Systolic Thickness 2.0 cm LV Ejection Fraction 2D Teich 38.9 % LV Ejection Fraction MOD 2C 29.4 % LV Ejection Fraction 2C AL 29.7 % RA Systolic Volume 4C AL 72.5 ml RA Systolic Volume 4C MOD 70.9 ml LA Sys Volume AL 90.7 cm cubed LA Sys Volume Index AL 46.3 cm cubed/m squared IVC Diameter 2.6 cm M-MODE LA Ao Ratio MM 1.3 AV Cusp Separation MM 2.2 cm DOPPLER AV Peak Velocity 132.0 cm/s LVOT Peak Velocity 67.0 cm/s MV Peak Velocity 146.0 cm/s MV Area PHT 6.0 cm squared Mitral E to A Ratio 3.4 TV Peak Velocity 277.5 cm/s TR Peak Velocity 316.0 cm/s TR Peak Gradient 39.9 mmHg TV Peak E Velocity 71.0 cm/s Right Atrial Pressure 3.0 mmHg Pulmonary Artery Systolic Pressu 42.9 mmHg PV Peak Velocity 111.0 cm/s FINDINGS Left Ventricle The left ventricle is mildly to moderately enlarged. There are segmental wall motion disturbances. The inferior and posterior hinojosa are mildly hypokinetic. The lateral wall is moderately hypokinetic. The anterior wall is severely hypokinetic and the apex is akinetic. Ejection fraction is 25 to 30%. Grade 2 diastolic dysfunction. Right Ventricle Normal right ventricular size and systolic function. Mild pulmonary hypertension, RVSP 42.9 mmHg. Right Atrium Mildly increased right atrial size. Left Atrium Mildly increased left atrial size. Mitral Valve Structurally normal mitral valve. Mild mitral valve regurgitation. Mild mitral annular calcification. Aortic Valve Structurally normal trileaflet aortic valve. No aortic valve stenosis. No aortic valve regurgitation. Tricuspid Valve Structurally normal tricuspid valve. Mild tricuspid valve regurgitation. Pulmonic Valve Pulmonic valve not well visualized. Moderate pulmonary valve regurgitation. Pericardium Normal pericardium without effusion. Aorta Normal ascending aorta dimension. IVC The inferior vena cava appears normal. CONCLUSIONS The left ventricle is mildly to moderately enlarged. There are segmental wall motion disturbances. The inferior and posterior hinojosa are mildly hypokinetic. The lateral wall is moderately hypokinetic. The anterior wall is severely hypokinetic and the apex is akinetic. Ejection fraction is 25 to 30%. Grade 2 diastolic dysfunction. Normal right ventricular size and systolic function. Mild pulmonary hypertension, RVSP 42.9 mmHg. Mildly increased right atrial size. Mildly increased left atrial size. Structurally normal mitral valve. Mild mitral valve regurgitation. Mild mitral annular calcification. No change from the previous echo 11/25/2021 Dr. Cade Busch MD (Electronically Signed) Final Date: 06 October 2023 16:05 S
[2023-10-06] MEDS: famotidine 20 mg/2 mL INJ IVP ×2 (09:52→21:42)
[2023-10-06] MEDS: levothyroxine 25 mcg Tablet 50 MCG PO (09:52)
[2023-10-06 10:05] LABS: Free T4 Free Thyroxine 0.93 ng/dL (0.82-1.77)
--- NOTE | 2023-10-06 12:31 | PM.PN ---
Subjective Subjective: Overnight events noted. Patient had an episode of NSVT and was given 1 g of magnesium. Thereafter patient was hypotensive. Lowest blood pressure recorded on computer 76/52. Patient was thereafter transferred to ICU. Patient more awake and alert this morning. Sitter at bedside. He states his blood pressure runs low at home as well and is usually 80s over 50s and that is normal for him. 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 Patient is on Entresto Vitals/I&O/Wt Last Vital Signs Temp 98.6 F 10/06/23 06:40 Pulse 78 10/06/23 12:12 Resp 19 H 10/06/23 12:12 BP 91/47 10/06/23 12:12 Pulse Ox 96 10/06/23 12:12 O2 Del Method Nasal Cannula 10/06/23 12:12 O2 Flow Rate 2 10/06/23 12:12 10/05/23 10/06/23 10/06/23 22:59 06:59 14:59 Intake Total 2620 / 2790 170 / 170 Output Total 1000 / 1000 350 / 1350 Balance -1000 / -830 2270 / 1440 170 / 170 Weight last 48 hrs Weight 99.518 kg Weight 97.114 kg Physical Exam Narrative: General exam: drowsy but able to answer questions and follows commands Neurologic: No obvious focal deficits, AOx2, moves all 4 extremities Cardiovascular regular rate and rhythm, no murmur Lungs clear Abdomen is soft Extremities no cyanosis clubbing or edema Urinary Catheter Management: Dejesus: Cath Placed During This Visit: yes Reason for Continuing Indwelling Catheter: Accurate Measurement of Urinary Output in Critically Ill Patients Urinary Catheter Date of Insertion: 10/05/23 Urinary Catheter Time of Insertion: 13:02 Data 10/06/23 04:59 10/06/23 04:59 Micro: Microbiology 10/05/23 13:10 Occult Blood (FIT) - Final Stool Routine Collection A&P Assessment and plan (1) Psychosis: Patient currently with psychosis After visiting with the family I believe he has some underlying dementia, likely with behaviors. Since he is ill, and out of his usual setting I think this is escalated significantly. Zyprexa 5 mg IM given x 1 10/04 Psychiatric consult 96-hour hold, appropriate paperwork filled out Initiate low-dose Zyprexa 2.5 mg twice daily, deferring to psychiatry should they have other recommendations. Will continue above today Appreciate psych recommendations. ammonia level tomorrow.- 52 (2) CHF (congestive heart failure): Patient was admitted with concern of acute CHF Lasix being held at this time. Patient appears to be euvolemic. Qualifiers: Heart failure type: diastolic Heart failure chronicity: chronic Qualified Code(s): I50.32 - Chronic diastolic (congestive) heart failure (3) Acute kidney injury: Patient has some increase in his creatinine Bladder scan to make sure no urinary retention is occurring. BMP tomorrow Discontinue IV fluids, this could lead to worsening renal function Hold Entresto currently secondary to valsartan component, lower blood pressures noted this morning. Continue to hold Entresto. Blood pressure has been on soft side. (4) Anemia: Pepcid IV Iron studies B12 Stool Hemoccult (5) Thrombocytopenia: Repeat CBC tomorrow. With thrombocytopenia, and anemia could consider myelodysplasia Will need heme f/u at dc (6) Diabetes: Sliding scale insulin No evidence of hypoglycemia currently Qualifiers: Diabetes mellitus type: type 2 Diabetes mellitus [facility] insulin use: without vermin exterminator use Diabetes mellitus complication status: with neurologic complications Diabetes mellitus complication detail: with unspecified neuropathy Qualified Code(s): E11.40 - Type 2 diabetes mellitus with diabetic neuropathy, unspecified (7) Community acquired pneumonia: continue doxycycline X-ray abnormality could also be heart failure. (8) Abnormal TSH: Continue low-dose levothyroxine (9) Pulmonary embolism: Continue patient's apixaban Qualifiers: Pulmonary embolism type: unspecified Chronicity: unspecified Acute cor pulmonale presence: unspecified Qualified Code(s): I26.99 - Other pulmonary embolism without acute cor pulmonale Plan Multiple other medical problems outlined in past medical history Full code Apixaban will suffice for DVT prophylaxis Today's plan 10/05 ? Continue to hold Entresto ? Continue to hold amlodipine ? Hold metoprolol succinate at this time as well ? Eliquis being held. Will investigate why. Hemoglobin 9.3. No active source of bleeding at this time. ?Continue ceftriaxone and doxycycline to complete 7 days total ? Continue Zyprexa 2.5 twice daily ? Attestations Medical Necessity Statement*: 96 hour hold, psychosis Diagnoses Psychosis F29 Chronic diastolic congestive heart failure I50.32 Heart failure type: diastolic Heart failure chronicity: chronic Acute kidney injury N17.9 Anemia D64.9 Thrombocytopenia D69.6 Type 2 diabetes mellitus with diabetic neuropathy, without long-term current use of insulin E11.40 Diabetes mellitus type: type 2 Diabetes mellitus vermin exterminator insulin use: without vermin exterminator use Diabetes mellitus complication status: with neurologic complications Diabetes mellitus complication detail: with unspecified neuropathy Community acquired pneumonia J18.9 Abnormal TSH R79.89 Pulmonary embolism, unspecified chronicity, unspecified pulmonary embolism type, unspecified whether acute cor pulmonale present I26.99 Pulmonary embolism type: unspecified Chronicity: unspecified Acute cor pulmonale presence: unspecified
--- NOTE | 2023-10-06 13:12 | PC.SOCIAL ---
Pg 2 IMM Explained to pt's family Pg 2 IMM. No questions voiced. Provided pt a copy. Initialed, dated, & timed a copy & placed in chart.
--- NOTE | 2023-10-06 13:59 | P.NPUPN_ITS ---
Subjective NPU 2 Subjective: Patient presented today reporting that he is feeling much better. He has been oriented and a model plan staff and direct observation. We discussed the fact that this continues to point towards delirium as the reason for the behaviors and that we will continue to follow but likely will sign off tomorrow. Mental Status Exam 2 MSE Comments: This is an overweight white male in hospital scrubs with limited grooming but appropriate eye contact. No abnormal movements. Cooperative with exam in no acute distress. Speech was slightly decreased rate and volume. Mood described as a lot better, affect congruent. Thought process organized thought content: Patient denied suicidal or homicidal ideation, there were no delusions reported or noted, he denied any auditory visual hallucinations. Attention and concentration were intact and memory appeared reliable but none were formally tested. Alert and oriented times person and place. Insight and judgment appear fair impulse control appears fair. Vitals/I&O/Wt Last Vital Signs Temp 98.6 F 10/06/23 06:40 Pulse 71 10/06/23 12:33 Resp 18 10/06/23 12:33 BP 106/57 10/06/23 12:33 Pulse Ox 90 10/06/23 12:33 O2 Del Method Nasal Cannula 10/06/23 12:33 O2 Flow Rate 2 10/06/23 12:33 10/05/23 10/06/23 10/06/23 22:59 06:59 14:59 Intake Total 2620 / 2790 290 / 290 Output Total 1000 / 1000 350 / 1350 Balance -1000 / -830 2270 / 1440 290 / 290 Weight last 48 hrs Weight 99.518 kg Weight 97.114 kg Physical Exam 2 Urinary Catheter Management: Dejesus: Cath Placed During This Visit: yes Reason for Continuing Indwelling Catheter: Accurate Measurement of Urinary Output in Critically Ill Patients Urinary Catheter Date of Insertion: 10/05/23 Urinary Catheter Time of Insertion: 13:02 Data NPU 10/07/23 04:55 10/07/23 04:55 Micro: Microbiology 10/05/23 13:10 Occult Blood (FIT) - Final Stool Routine Collection Microbiology 10/05/23 13:10 Stool Routine Collection Occult Blood (FIT) - Final A&P Assessment and plan (1) Psychosis: (2) Altered mental status: (3) Delirium due to general medical condition: Plan This is a 83-year-old white male with no significant mental health history but fairly recent stroke in 2018 with follow-up at a facility that allow for PT OT etc. after which she returned home with mostly no sequela except for some loss of gait stability who presents with a return of odd, agitated and confused behavior without clear understanding of cause at this point. 1. Continue current medication. 2. Current diagnoses likely to be delirium of unknown cause given there has been no significant history of dementia which would allow for the possibility of this being psychosis against the backdrop of said dementia. Presents today 10/06/2023 consistent with delirium. 3. Agree with Zyprexa for treatment of delirium at 2.5 mg p.o. twice daily. If patient is not having oral intake or refusing oral intake Zyprexa IM maximum 20 mg in 24 hours in divided doses of 5-10 will be reasonable with p.o. refusal. 4. Will continue to follow. Attestations NPU 2 Medical Necessity Statement*: N/A. Please see primary team note for medical necessity. Coding Level of Care Code Acute Code for [facility] Fwd Diagnoses Psychosis F29 Altered mental status R41.82 Delirium due to general medical condition F05
[2023-10-06 17:09] LABS: Glucose Point of Care 125 mg/dL (70-110)
[2023-10-06 21:56] LABS: Glucose Point of Care 116 mg/dL (70-110)
[2023-10-06] MEDS: insulin glargine 100 units/1 mL 40 UNIT SUBCUT (22:13)
[2023-10-07] VITALS (9 sets, daily range): BP systolic 94–118; BP diastolic 53–71; PULSE 65–68; RESP 16–20; TEMP 36.4–37; O2SAT 98–100
[2023-10-07] MEDS: acetaminophen 325 mg Tablet 650 MG PO (03:39)
[2023-10-07 05:06] LABS: Basophils % 0.5 %; Eosinophils # 0.2 10^3/uL (0.0-0.8); Eosinophils % 6.3 %; Hematocrit 36.8 % (37-53); Lymphocytes # 0.7 10^3/uL (0.8-4.8); Lymphocytes % 18.9 %; Mean Corpuscular HGB Conc 27.7 g/dL (30-55); Mean Corpuscular Hemoglobin 24.2 pg (27-33); Mean Corpuscular Volume 87.4 fl (82-101); Mean Platelet Volume 10.5 fL (7.4-10.4); Monocytes # 0.5 10^3/uL (0.2-0.9); Neutrophils # 2.19 10^3/uL (1.8-7.7); Nucleated Red Blood Cells % 0 %; Platelet Count 100 10^3/cmm (157-399); Red Blood Count 4.21 10^6/uL (3.85-5.65); Red Cell Distribution Width 18.3 % (12.1-15.1); White Blood Count 3.65 10^3/uL (3.29-11.43)
[2023-10-07] MEDS: pantoprazole 40 mg SDV IVP (05:27)
[2023-10-07 05:28] LABS: Alanine Aminotransferase 13 U/L (0-41); Albumin Level 3.3 g/dL (3.5-5.2); Alkaline Phosphatase 61 U/L (40-130); Anion Gap 15.2 (5-19); Aspartate Amino Transferase 49 U/L (0-40); Blood Urea Nitrogen 34 mg/dL (8-23); Calcium 8.4 mg/dL (8.5-10.5); Carbon Dioxide 20 mmol/L (22-29); Chloride 111 mmol/L (98-107); Creatinine Clr Calc Pharmacy 44.1031; Globulin 2.3 g/dL (1.3-4.6); Glucose 88 mg/dL (65-115); Osmolality Calculated 301 mOsm/kg (285-295); Potassium 4.2 mmol/L (3.5-5.1); Sodium 142 mmol/L (136-145); Total Bilirubin 0.2 mg/dL (0.15-1.2); Total Protein 5.6 g/dL (6.6-8.7)
[2023-10-07] MEDS: levothyroxine 25 mcg Tablet 50 MCG PO (05:32)
[2023-10-07 06:39] LABS: Glucose Point of Care 85 mg/dL (70-110)
[2023-10-07] MEDS: cefTRIAXone 1,000 MG in sodium chloride 0.9% (plus) 50 ML 100 MG IV (08:56)
[2023-10-07] MEDS: doxycycline 100 mg Tablet PO (10:16)
[2023-10-07] MEDS: famotidine 20 mg/2 mL INJ IVP (10:17)
[2023-10-07] MEDS: allopurinol 300 mg Tablet PO (10:17)
[2023-10-07] MEDS: OLANZapine 5 mg TABLET 2.5 MG PO (10:18)
[2023-10-07] MEDS: atorvastatin 40 mg Tablet 20 MG PO (10:18)
[2023-10-07 11:10] LABS: Glucose Point of Care 119 mg/dL (70-110)
--- NOTE | 2023-10-07 13:16 | P.NPUPN_ITS ---
Subjective NPU 2 Subjective: Patient presented today reporting that he is feeling better and back to himself. Met with him while his son was also in the room and he confirms his father being back to baseline. No behavioral issues overnight or any additional concerns. We discussed this reflecting a delirium and that it appears to have cleared. He denied any side effects of the medications. Mental Status Exam 2 MSE Comments: This is an overweight white male in hospital scrubs with limited grooming but appropriate eye contact. No abnormal movements. Cooperative with exam in no acute distress. Speech was slightly decreased rate and volume. Mood described as a lot better, affect congruent. Thought process organized thought content: Patient denied suicidal or homicidal ideation, there were no delusions reported or noted, he denied any auditory visual hallucinations. Attention and concentration were intact and memory appeared reliable but none were formally tested. Alert and oriented times person and place. Insight and judgment appear fair impulse control appears fair. Vitals/I&O/Wt Last Vital Signs Temp 97.6 F 10/07/23 08:00 Pulse 68 10/07/23 08:37 Resp 16 10/07/23 08:37 BP 100/54 10/07/23 10:00 Pulse Ox 98 10/07/23 08:37 O2 Del Method Room Air 10/07/23 08:37 O2 Flow Rate 2 10/06/23 21:30 10/06/23 10/07/23 10/07/23 22:59 06:59 14:59 Intake Total 360 / 650 360 / 1010 410 / 410 Output Total 600 / 600 Balance 360 / 650 -240 / 410 410 / 410 Weight last 48 hrs Weight 98.883 kg Weight 99.518 kg Physical Exam 2 Urinary Catheter Management: Dejesus: Cath Placed During This Visit: yes Reason for Continuing Indwelling Catheter: Accurate Measurement of Urinary Output in Critically Ill Patients Urinary Catheter Date of Insertion: 10/05/23 Urinary Catheter Time of Insertion: 13:02 Data NPU 10/07/23 04:55 10/07/23 04:55 A&P Assessment and plan (1) Thrombocytopenia: (2) Pulmonary embolism: Qualifiers: Acute cor pulmonale presence: unspecified Chronicity: unspecified P ulmonary embolism type: unspecified Qualified Code(s): I26.99 - Other pulmonary embolism without acute cor pulmonale (3) Anemia: (4) Psychosis: (5) Altered mental status: (6) Delirium due to general medical condition: Plan This is a 83-year-old white male with no significant mental health history but fairly recent stroke in 2018 with follow-up at a facility that allow for PT OT etc. after which she returned home with mostly no sequela except for some loss of gait stability who presents with a return of odd, agitated and confused behavior without clear understanding of cause at this point. 1. Continue current medication. 2. Current diagnoses likely to be delirium of unknown cause given there has been no significant history of dementia which would allow for the possibility of this being psychosis against the backdrop of said dementia. Presents today 10/06/2023 consistent with delirium. Continue clearly today, 10/07/2023 again confirming delirium. Patient appears prepared to discharge when medically stable. 3. Agree with Zyprexa for treatment of delirium at 2.5 mg p.o. twice daily. 4. We will sign off and feel free to reconsult if additional concerns arise. Attestations NPU 2 Medical Necessity Statement*: N/A. Please see primary team note for medical necessity. Coding Level of Care Code Acute Code for [facility] Fwd Diagnoses Thrombocytopenia D69.6 Pulmonary embolism, unspecified chronicity, unspecified pulmonary embolism type, unspecified whether acute cor pulmonale present I26.99 Acute cor pulmonale presence: unspecified Chronicity: unspecified Pulmonary embolism type: unspecified Anemia D64.9 Psychosis F29 Altered mental status R41.82 Delirium due to general medical condition F05
--- NOTE | 2023-10-07 13:22 | P.DS_ITS ---
Discharge Providers Date of Admission: 10/03/23 09:37 Date of Discharge: October 07, 2023 Attending Provider at Admission: Angela Elias MD Attending Provider at Discharge: Joelle Dinero MD Primary Care Provider: Candice Thakkar MD Diagnoses at Discharge Discharge Diagnosis (1) Psychosis: Status: Acute (2) Altered mental status: Status: Acute (3) Delirium due to general medical condition: Status: Acute Reason for Visit Reason for Visit: PAIN ALL OVER Hospital Course Hospital Course Patient presented to the hospital for increased shortness of breath and instability for the last 2 days. Patient does have a chronic productive cough. He was unable to walk and was weak. Denied nausea vomiting diarrhea. He was found to have difficulty finding words and unable to speak in full sentences upon admission. Influenza A, B, COVID-negative. Chest x-ray did show patchy airspace opacities in bilateral lung bases which likely represent bilateral pneumonia. He was placed on ceftriaxone, azithromycin. CT head done which did not show a stroke. PT OT ordered. Patient also had hypothyroidism for which she was started on levothyroxine 50 daily. Second day after hospital stay patient became extremely delirious and combative. He became significantly paranoid that people are poisoning him and keeping him [place] as well. He had an acute psychotic episode. Family tried to calm him down however he was uncontrollable. Family did report that some of these behaviors happen at home usually at night. Patient was placed on a 96-hour hold and psychiatry was consulted. Patient was placed on Zyprexa 2.5 twice daily. Family negative. Patient transiently also had low blood pressure for which she was transferred to the ICU. Subsequently blood pressures were normal. Some of his medication dosages were cut down. Medically he is stable for discharge and back to baseline. Patient does have some thrombocytopenia for which he will get a clarisse tology follow-up at discharge. Patient to complete antibiotics for another 7 days to equal 10 days total. Patient will be discharged home in stable condition. This morning he was seen walking around the [place] with his sitter. Patient is independently walking as per physical therapy. Physical Exam Narrative: General exam: AOx3 Neurologic: No obvious focal deficits, AOx2, moves all 4 extremities Cardiovascular regular rate and rhythm, no murmur Lungs clear Abdomen is soft Extremities no cyanosis clubbing or edema Urinary Catheter Management: Dejesus: Cath Placed During This Visit: yes Reason for Continuing Indwelling Catheter: Accurate Measurement of Urinary Output in Critically Ill Patients Urinary Catheter Date of Insertion: 10/05/23 Urinary Catheter Time of Insertion: 13:02 Discharge Data Studies Completed and Pending Completed Studies During Hospitalization Category Date Time Status CT head thrombolytic [id number] Stat Cat Scan 10/03/23 03:21 Completed XR chest 1V portable [id number] Stat Exams 10/03/23 03:21 Completed CV. echo complete* [id number] Urgent Ultrasound 10/06/23 09:00 Completed Pending at discharge Category Date Time Status Blood Culture Stat Lab 10/03/23 05:35 Results Radiology Impressions Chest X-Ray 10/03/23 03:21 IMPRESSION: 1. Patchy airspace opacities in bilateral lung bases, which likely represent bilateral lower lobe pneumonia. 2. Cardiac silhouette is mildly enlarged. Head CT 10/03/23 03:21 IMPRESSION: 1. No acute intracranial findings and no significant change. 2. Stable encephalomalacia in the left frontal lobe and left temporal lobe. 3. Chronic microvascular ischemic changes in bilateral periventricular white matter. ASSESSMENT: ASPECTS ([place] Stroke Program Early CT Score) is 10. Laboratory Results WBC 3.65 10^3/uL (3.29-11.43) 10/07/23 04:55 Corrected WBC Cancelled 10/05/23 06:11 RBC 4.21 10^6/uL (3.85-5.65) 10/07/23 04:55 Hgb 10.20 g/dL (11.27-16.99) L 10/07/23 04:55 Hct 36.8 % (37-53) L 10/07/23 04:55 MCV 87.4 fl (82-101) 10/07/23 04:55 MCH 24.2 pg (27-33) L 10/07/23 04:55 MCHC 27.7 g/dL (30-55) L 10/07/23 04:55 RDW 18.3 % (12.1-15.1) H 10/07/23 04:55 Plt Count 100 10^3/cmm (157-399) L 10/07/23 04:55 MPV 10.5 fL (7.4-10.4) H 10/07/23 04:55 Gran % Cancelled 10/05/23 06:11 Neut % (Auto) 60.0 % 10/07/23 04:55 Lymph % (Auto) 18.9 % 10/07/23 04:55 [place] % (Auto) 14.0 % 10/07/23 04:55 Eos % (Auto) 6.3 % 10/07/23 04:55 Baso % (Auto) 0.5 % 10/07/23 04:55 Neut # (Auto) 2.19 10^3/uL (1.8-7.7) 10/07/23 04:55 Lymph # (Auto) 0.7 10^3/uL (0.8-4.8) L 10/07/23 04:55 [place] # (Auto) 0.5 10^3/uL (0.2-0.9) 10/07/23 04:55 Eos # (Auto) 0.2 10^3/uL (0.0-0.8) 10/07/23 04:55 Baso # (Auto) 0.0 10^3/uL (0.0-0.1) 10/07/23 04:55 Absolute Gran (auto) Cancelled 10/05/23 06:11 Nucleated RBC % (auto) 0 % 10/07/23 04:55 Nucleated RBCs # 0.0 /100WBC 10/07/23 04:55 PT 13.50 SECONDS (12.1-14.9) 10/03/23 03:13 INR 1.00 (0.8-1.2) 10/03/23 03:13 APTT 33.1 SECONDS (23.9-36.7) 10/03/23 03:13 Sodium 142 mmol/L (136-145) 10/07/23 04:55 Potassium 4.2 mmol/L (3.5-5.1) 10/07/23 04:55 Chloride 111 mmol/L (98-107) H 10/07/23 04:55 Carbon Dioxide 20 mmol/L (22-29) L 10/07/23 04:55 Anion Gap 15.2 (5-19) 10/07/23 04:55 BUN 34 mg/dL (8-23) H 10/07/23 04:55 Creatinine 1.6 mg/dL (0.7-1.2) H 10/07/23 04:55 GFR Calculation Not Reportable 10/07/23 04:55 Glucose 88 mg/dL (65-115) 10/07/23 04:55 POC Glucose 119 mg/dL (70-110) H 10/07/23 11:04 Calculated Osmolality 301 mOsm/kg (285-295) H 10/07/23 04:55 Lactic Acid 1.4 mmol/L (0.5-2.2) 10/03/23 05:39 Uric Acid 4.6 mg/dL (3.4-7.0) 10/03/23 03:13 Calcium 8.4 mg/dL (8.5-10.5) L 10/07/23 04:55 Magnesium 2.0 mg/dL (1.7-2.3) 10/07/23 04:55 Iron 29 ug/dL (59-158) L 10/04/23 05:52 TIBC 290 mcg/dl 10/04/23 05:52 % Saturation 10.0 % (20-50) L 10/04/23 05:52 Unsat Iron Binding 261 ug/dL (112-347) 10/04/23 05:52 Ferritin 37 ng/mL (30-400) 10/04/23 05:52 Total Bilirubin 0.2 mg/dL (0.15-1.2) 10/07/23 04:55 AST 49 U/L (0-40) H 10/07/23 04:55 ALT 13 U/L (0-41) 10/07/23 04:55 Alkaline Phosphatase 61 U/L (40-130) 10/07/23 04:55 Ammonia 52 umol/L (16-60) 10/05/23 06:11 Troponin T Baseline 58 ng/L (0-15) H 10/03/23 03:13 Troponin T 120 Minute 52.58 ng/L (0-15) H 10/03/23 05:39 Delta Troponin T -5.42 ABS# (0-10) L 10/03/23 05:39 Troponin T Hi Sens 6Hr 53.25 ng/L (0-15) H 10/03/23 08:46 Troponin T Hi Sens 6Hr Delta -4.75 ng/L (0-12) L 10/03/23 08:46 C-Reactive Protein 29.2 mg/L (0.0-4.9) H 10/03/23 03:13 NT-Pro-B Natriuret Pep 9911 pg/mL (0-450) H 10/04/23 05:52 Total Protein 5.6 g/dL (6.6-8.7) L 10/07/23 04:55 Albumin 3.3 g/dL (3.5-5.2) L 10/07/23 04:55 Globulin 2.3 g/dL (1.3-4.6) 10/07/23 04:55 Vitamin B12 645 pg/mL (232-1245) 10/04/23 05:52 Procalcitonin 0.11 ng/mL (0-0.5) 10/03/23 03:13 TSH 11.74 uIU/mL (0.27-4.20) H 10/03/23 03:13 Free T4 0.93 ng/dL (0.82-1.77) 10/06/23 04:59 Urine Color Yellow (Yellow) 10/04/23 15:45 Urine Appearance Clear (CLEAR) 10/04/23 15:45 Urine pH 5 (5-7) 10/04/23 15:45 Ur Specific [place] 1.020 (1.005-1.030) 10/04/23 15:45 Urine Protein 3+ (Negative) H 10/04/23 15:45 Urine Glucose (UA) Norm (Normal) 10/04/23 15:45 Urine Ketones 1+ (Negative) H 10/04/23 15:45 Urine Blood Neg (Negative) 10/04/23 15:45 Urine Nitrate Negative (Negative) 10/04/23 15:45 Urine Bilirubin 1+ (Negative) H 10/04/23 15:45 Urine Urobilinogen 1 mg/dL (Negative) H 10/04/23 15:45 Ur Leukocyte Esterase Trace (Negative) H 10/04/23 15:45 Urine RBC None /hpf (0-2) 10/04/23 15:45 Urine WBC 0-4 /hpf (0-5) H 10/04/23 15:45 Ur Squamous Epith Cells Rare /hpf (0-5) 10/04/23 15:45 Amorphous Sediment Not Reportable 10/04/23 15:45 Urine Bacteria 1+ /hpf (NONE) H 10/04/23 15:45 Urine Mucus Trace /hpf 10/04/23 15:45 Urine Opiates Screen Positive ng/mL (Negative) H 10/04/23 15:45 Ur Barbiturates Screen Negative ng/mL (Negative) 10/04/23 15:45 Ur Phencyclidine Scrn Negative ng/mL (Negative) 10/04/23 15:45 Ur Amphetamines Screen Negative ng/mL (Negative) 10/04/23 15:45 U Benzodiazepines Scrn Negative ng/mL (Negative) 10/04/23 15:45 Urine Cocaine Screen Negative ng/mL (Negative) 10/04/23 15:45 U Marijuana (THC) Screen Negative ng/mL (Negative) 10/04/23 15:45 Ethyl Alcohol < 10 mg/dL (0-10) 10/03/23 03:13 Adenovirus (PCR) Not detected (NOT DETECT) 10/03/23 13:02 C. pneumoniae DNA (PCR) Not detected (NOT DETECT) 10/03/23 13:02 Coronavirus 229E (PCR) Not detected (NOT DETECT) 10/03/23 13:02 Human Metapneumovir PCR Not detected (NOT DETECT) 10/03/23 13:02 Influenza A (H1) PCR Not detected (NOT DETECT) 10/03/23 13:02 Influ A (H1/09) PCR Not detected (NOT DETECT) 10/03/23 13:02 Influenza A (H3) PCR Not detected (NOT DETECT) 10/03/23 13:02 Influenza Type A Ag negative (Negative) 10/03/23 04:22 Influenza Type A (PCR) Not detected (NOT DETECT) 10/03/23 13:02 Influenza Type B Ag negative (Negative) 10/03/23 04:22 Influenza Type B (PCR) Not detected (NOT DETECT) 10/03/23 13:02 M. pneumoniae (PCR) Not detected (NOT DETECT) 10/03/23 13:02 Parainfluenza 1 (PCR) Not detected (NOT DETECT) 10/03/23 13:02 Parainfluenza 2 (PCR) Not detected (NOT DETECT) 10/03/23 13:02 Parainfluenza 3 (PCR) Not detected (NOT DETECT) 10/03/23 13:02 Parainfluenza 4 (PCR) Not detected (NOT DETECT) 10/03/23 13:02 RSV Type A (PCR) Not detected (NOT DETECT) 10/03/23 13:02 RSV Type B (PCR) Not detected (NOT DETECT) 10/03/23 13:02 Entero/Rhino (PCR) Not detected (NOT DETECT) 10/03/23 13:02 SARS-CoV-2 (PCR) Not detected (NOT DETECT) 10/03/23 13:02 SARS-CoV-2 Ag (Rapid) negative (Negative) 10/03/23 04:22 Vitals Last Vital Signs Temp 97.6 F 10/07/23 08:00 Pulse 68 10/07/23 08:37 Resp 16 10/07/23 08:37 BP 100/54 10/07/23 10:00 Pulse Ox 98 10/07/23 08:37 O2 Del Method Room Air 10/07/23 08:37 O2 Flow Rate 2 10/06/23 21:30 Discharge Plan Discharge Patient Disposition: Home Condition: Stable Prescriptions: New amoxicillin-pot clavulanate 875-125 mg tablet 1 tab PO BID 7 Days Qty: 14 0RF olanzapine 5 mg Tablet 2.5 mg PO BID Qty: 30 0RF levothyroxine 25 mcg Tablet 50 mcg PO QAM Qty: 30 0RF Continued (DME) pen needle, diabetic [TechLITE Pen Needle] 31 gauge x 5/16 needle See Rx Instructions .ROUTE .COMPLEX Qty: 100 3RF Dose Instruction: USE DIRECTED with levemir TWICE DAILY Rx Instructions: USE DIRECTED with levemir TWICE DAILY Bydureon BCise 2 mg/0.85 mL auto-injector 2 mg SUBCUT Q7D Qty: 10.2 4RF Rx Instructions: ON WEDNESDAY. Fax Script to [facility] [phone]. Eliquis 5 mg tablet 5 mg PO BID Qty: 180 3RF pantoprazole 40 mg tablet,delayed release (DR/EC) 40 mg PO DAILY allopurinol 300 mg tablet 300 mg PO DAILY furosemide 20 mg tablet 40 mg PO BID PRN (Reason: Edema) rosuvastatin 5 mg tablet 5 mg PO DAILY Changed Levemir FlexPen 100 unit/mL (3 mL) insulin pen 40 unit SUBCUT BEDTIME 30 Days Qty: 15 0RF Held Entresto 24-26 mg tablet 1 tab PO BID Qty: 180 3RF Hold Instructions: see cardiology metoprolol succinate 25 mg tablet extended release 24 hr 25 mg PO DAILY Hold Instructions: see cardiology Discontinued amlodipine 2.5 mg tablet 2.5 mg PO DAILY Qty: 90 3RF gabapentin 800 mg tablet 800 mg PO BID Discharge Orders: Discharge Order (Routine); Ordered 10/07/23 Ordered By: Joelle Dinero Other Ambulatory Orders: Complete Blood Count w/Auto (Routine) Timeframe: 3 Days Location: Determined by Patient Ordered By: Joelle Dinero Referrals: Cade Busch MD [Physician] - 4-7 days Aidan Garcia MD [Hospitalist] - 1-3 days Candice Thakkar MD [Primary Care Provider] - (We have notified your physician's clinic of the need for a follow-up appointment to be scheduled. If you have not heard from them within the next 2 business days, please call them directly. ) Discharge Diet: Cardiac and Diabetic Discharge Activity: Resume usual activity and Use walker/crutches as instructed Patient Instructions: Opioid Safety Discharge Attestations Time Spent in Discharge Care*: greater than 30 min Quality Metrics Clinical Quality Measures [ No reported AMI, CVA or VTE this stay] Coding Level of Care Code 09365 Diagnoses Psychosis F29 Altered mental status R41.82 Delirium due to general medical condition F05
== END 2023-10-07 16:25 | disposition home or self-care (01) | DRG 193 ==
LOC: ER 06:03 → MEDSURG 07:33 → ICU 10-06 06:27 → MEDSURG 10-06 21:09
PROVIDERS: Emergency Medicine; Internal Medicine; Admitting Provider Student in an Organized Health Care Education/Training Program; Emergency Provider Family Medicine; PCP Family Medicine; Visit Provider Internal Medicine
DX: J18.9 Pneumonia, unspecified organism (principal); I50.43 Acute on chronic combined systolic (congestive) and diastolic (congestive) heart failure; J44.0 Chronic obstructive pulmonary disease with (acute) lower respiratory infection; I47.10 Supraventricular tachycardia, unspecified; F05 Delirium due to known physiological condition; N17.9 Acute kidney failure, unspecified; I25.5 Ischemic cardiomyopathy; E11.22 Type 2 diabetes mellitus with diabetic chronic kidney disease; N18.9 Chronic kidney disease, unspecified; M1A.9XX0 Chronic gout, unspecified, without tophus (tophi); E11.51 Type 2 diabetes mellitus with diabetic peripheral angiopathy without gangrene; E11.40 Type 2 diabetes mellitus with diabetic neuropathy, unspecified; I70.209 Unspecified atherosclerosis of native arteries of extremities, unspecified extremity; K21.9 Gastro-esophageal reflux disease without esophagitis; E78.2 Mixed hyperlipidemia; R09.02 Hypoxemia; I25.10 Atherosclerotic heart disease of native coronary artery without angina pectoris; G89.29 Other chronic pain; G47.00 Insomnia, unspecified; D69.6 Thrombocytopenia, unspecified; D63.1 Anemia in chronic kidney disease; F29 Unspecified psychosis not due to a substance or known physiological condition; Z79.4 Long term (current) use of insulin; E03.9 Hypothyroidism, unspecified; R26.81 Unsteadiness on feet; Z11.52 Encounter for screening for COVID-19; Z79.01 Long term (current) use of anticoagulants; Z95.1 Presence of aortocoronary bypass graft; Z86.73 Personal history of transient ischemic attack (TIA), and cerebral infarction without residual deficits; Z86.711 Personal history of pulmonary embolism; Z87.891 Personal history of nicotine dependence
CPT/HCPCS: 36415; 36416; 51702; 70450; 71045; 80048; 80053; 80306; 80307; 81001; 82140; 82274; 82607; 82728; 82962; 83540; 83550; 83605; 83735; 83880; 84145; 84439; 84443; 84484; 84550; 85025; 85610; 85730; 86140; 87040; 87426; 87486; 87581; 87633; 87804; 93005; 93306; 94640; 94664; 96365; 96367; 96372; 96375; 96376; 97110; 97116; 97161; 97530; 99285; C9113; J0456; J0696; J1815; J1885; J1940; J2270; J2405; J3490; J7030; J7040; J7050

== ENCOUNTER → 2023-10-14 11:08 | Outpatient (BNVA) | payer MEDICARE, SELFPAY | PROVIDERS: PCP Family Medicine; Visit Provider Family Medicine | DX: N39.0 Urinary tract infection, site not specified (principal) | CPT/HCPCS: 81000 ==

== ENCOUNTER → 2023-10-20 13:11 | Outpatient (BNVA) | payer MEDICARE, SELFPAY | PROVIDERS: PCP Family Medicine; Referring Provider Family Medicine; Visit Provider Dermatology | DX: L57.0 Actinic keratosis (principal); L82.1 Other seborrheic keratosis; L21.8 Other seborrheic dermatitis; L81.4 Other melanin hyperpigmentation; L57.8 Other skin changes due to chronic exposure to nonionizing radiation; D22.5 Melanocytic nevi of trunk | CPT/HCPCS: 17000; 69100; 99204 ==

== ENCOUNTER → 2023-10-21 14:03 | Outpatient (BNVA) | payer MEDICARE, SELFPAY | PROVIDERS: PCP Family Medicine; Visit Provider Nurse Practitioner Family | DX: I25.10 Atherosclerotic heart disease of native coronary artery without angina pectoris (principal); I50.32 Chronic diastolic (congestive) heart failure; I13.0 Hypertensive heart and chronic kidney disease with heart failure and stage 1 through stage 4 chronic kidney disease, or unspecified chronic kidney disease; E11.22 Type 2 diabetes mellitus with diabetic chronic kidney disease; N18.9 Chronic kidney disease, unspecified; Z87.891 Personal history of nicotine dependence; Z79.4 Long term (current) use of insulin | CPT/HCPCS: 99214 ==

== ENCOUNTER → 2023-11-15 12:19 | Outpatient (BNVA) | payer MEDICARE, SELFPAY | PROVIDERS: PCP Family Medicine; Visit Provider Internal Medicine Cardiovascular Disease | DX: I13.0 Hypertensive heart and chronic kidney disease with heart failure and stage 1 through stage 4 chronic kidney disease, or unspecified chronic kidney disease (principal); I50.32 Chronic diastolic (congestive) heart failure; N18.9 Chronic kidney disease, unspecified; Z95.1 Presence of aortocoronary bypass graft; I26.99 Other pulmonary embolism without acute cor pulmonale; E78.2 Mixed hyperlipidemia; I25.10 Atherosclerotic heart disease of native coronary artery without angina pectoris; I73.9 Peripheral vascular disease, unspecified; I83.893 Varicose veins of bilateral lower extremities with other complications; Z79.01 Long term (current) use of anticoagulants; I25.5 Ischemic cardiomyopathy; D69.6 Thrombocytopenia, unspecified; Z87.891 Personal history of nicotine dependence | CPT/HCPCS: 99214 ==

== ENCOUNTER → 2023-12-06 16:36 | Outpatient (BNVA) | payer MEDICARE, SELFPAY | PROVIDERS: PCP Family Medicine; Visit Provider Family Medicine | DX: D69.6 Thrombocytopenia, unspecified (principal); G47.00 Insomnia, unspecified; E11.40 Type 2 diabetes mellitus with diabetic neuropathy, unspecified; R79.89 Other specified abnormal findings of blood chemistry; I10 Essential (primary) hypertension; I25.10 Atherosclerotic heart disease of native coronary artery without angina pectoris | CPT/HCPCS: 80053; 80061; 83036; 84443; 85025 ==

== ENCOUNTER 2024-04-07 11:35 | Emergency (ER) | payer OTHER, SELFPAY ==
[2024-04-07 11:42] VITALS: BP 162/63; PULSE 108; RESP 17; TEMP 36.5; O2SAT 98
[2024-04-07 12:15] VITALS: BP 105/56; PULSE 64; O2SAT 92
--- NOTE | 2024-04-07 12:23 | ECG_ITS ---
[facility] Test Date: 2024-04-07 Pat Name: Shaila Galvan Department: Room: Gender: Male Filler Operator: : 1940 Requested By: Lisa Warner Order Number: [id number] Amina MD: Pallavi Kumari M.D. Measurements Intervals [place] Rate: 64 P: 79 [place]: 102 QRS: -54 QRSD: 167 T: 133 QT: 464 QTc: 479 Interpretive Statements Possible atrial flutter with fixed 4:1 AV block LEFT AXIS DEVIATION [QRS AXIS < -30] INTRAVENTRICULAR CONDUCTION DELAY [130+ ms QRS DURATION] Compared to ECG 10/03/2023 18:33:05 Short [place] interval now present Left-axis deviation now present Intraventricular conduction delay now present Myocardial infarct finding no longer present T-wave abnormality no longer present Possible ischemia no longer present Electronically Signed On 04-10-2024 00:06:56 CDT by Pallavi Kumari M.D. [email or web address]
--- NOTE | 2024-04-07 12:23 | XR_ITS ---
WS: [id number] Exam: XR chest 1V portable [id number] Date/Time of Exam: 04/07/2024 12:23 PM Reason For Exam: weakness Comparison 10/03/2023. There is mild infiltrate in the lingula that may represent developing pneumonia. Small LEFT basal ple ural effusion noted. Mild cardiac enlargement unchanged. The RIGHT lung is clear. There are superimpo sed chronic interstitial changes in both lungs. Signs of previous CABG surgery. The mediastinum is no rmal in contour. Bony structures are intact. XR/XR chest 1V portable [id number] IMPRESSION: 1. Mild infiltrate and/or atelectasis in the lingula. This may represent develo ping pneumonia. 2. Mild cardiac enlargement. Small LEFT basal pleural effusion.
[2024-04-07 12:26] LABS: Basophils % 0.6 %; Eosinophils # 0.2 10^3/uL (0.0-0.8); Eosinophils % 2.9 %; Hematocrit 30.7 % (37-53); Lymphocytes # 0.6 10^3/uL (0.8-4.8); Lymphocytes % 11.9 %; Mean Corpuscular HGB Conc 26.4 g/dL (30-55); Mean Corpuscular Hemoglobin 22.4 pg (27-33); Mean Corpuscular Volume 84.8 fl (82-101); Mean Platelet Volume 10.7 fL (7.4-10.4); Monocytes # 0.4 10^3/uL (0.2-0.9); Monocytes % 7.4 %; Neutrophils # 3.93 10^3/uL (1.8-7.7); Neutrophils % 76.8 %; Nucleated Red Blood Cells % 0 %; Platelet Count 95 10^3/cmm (157-399); Red Blood Count 3.62 10^6/uL (3.85-5.65); Red Cell Distribution Width 18.6 % (12.1-15.1); White Blood Count 5.12 10^3/uL (3.29-11.43)
--- NOTE | 2024-04-07 12:26 | ED_ITS ---
HPI - Recheck/Abnormal Lab/Rx 2 General: Chief Complaint: Recheck/Abnormal Lab/Rx Stated Complaint: low red blood count - dr sent Time Seen by Provider: 04/07/24 11:53 Source: patient Mode of arrival: ambulatory Limitations: no limitations History of Present Illness: 84-year-old male states has been having some fatigue over the last week he [facility] come to the ER for anemia he denies any blood in his stool he denies any chest pain denies any dyspnea or cough denies any dysuria. He had no vomiting or diarrhea. Related Data Home Medications Medication Instructions Recorded Confirmed metoprolol succinate 25 mg 25 mg PO DAILY 10/03/23 04/07/24 tablet,extended release 24 hr pantoprazole 40 mg tablet,delayed 40 mg PO DAILY 10/03/23 04/07/24 release rosuvastatin 5 mg tablet 5 mg PO DAILY 10/03/23 04/07/24 allopurinol 300 mg tablet 300 mg PO DAILY 04/07/24 04/07/24 ferrous sulfate 325 mg (65 mg 325 mg PO DAILY 04/07/24 04/07/24 iron) tablet (Iron (ferrous sulfate)) folic acid 1 mg tablet 1 mg PO DAILY 04/07/24 04/07/24 insulin detemir U-100 100 unit/mL 60 unit SUBCUT BID 04/07/24 04/07/24 (3 mL) subcutaneous pen (Levemir FlexPen) Previous Rx's Medication Instructions Recorded pen needle, diabetic 31 gauge x #100 ea 01/20/2310/27 (TechLITE Pen Needle) exenatide microspheres 2 mg/0.85 2 mg (0.85 mL) SUBCUT Q7D #10.2 mL 05/31/23 mL subcutaneous auto-injector ([employer] BCise) apixaban 5 mg tablet (Eliquis) 5 mg PO BID #180 tabs 07/30/23 sacubitril 24 mg-valsartan 26 mg 1 tab PO BID #180 tabs 10/21/23 tablet (Entresto) furosemide 40 mg tablet 40 mg PO BID PRN Edema #60 tabs 12/06/23 gabapentin 800 mg tablet 800 mg PO BID #180 tabs 12/10/23 levothyroxine 50 mcg tablet 50 mcg PO DAILY #90 tabs 12/10/23 Allergies Allergy/AdvReac Type Severity Reaction Status Date / Time guaifenesin [From Mucinex] Allergy Unknown Unknown Verified 02/16/24 09:34 duloxetine [From Cymbalta] Allergy Unknown Verified 02/16/24 09:34 lorazepam [From Ativan] Allergy Unknown Verified 02/16/24 09:34 pregabalin [From Lyrica] Allergy Unknown Verified 02/16/24 09:34 Review of Systems 2 Const: Reports: fatigue; Denies: fever(s), chills, body aches or change in appetite Eyes: Denies: blurry vision or eye discomfort ENMT: Denies: throat pain or dental pain Card: Denies: chest pain Resp: Denies: dyspnea GI: Denies: abdominal pain, nausea, vomiting or diarrhea Musc: Denies: neck pain or back pain Skin/Breast: Denies: rash Neuro: Denies: headache(s) PFSH ED 2 PFSH: Medical History Enrolled in chronic care management Ischemic cardiomyopathy Anticoagulation adequate with anticoagulant therapy Varicose veins of bilateral lower extremities with other complications Claudication Chronic gout History of stroke PAD (peripheral artery disease) CAD (coronary artery disease) Diabetic peripheral neuropathy Chronic pain disorder Insomnia GERD (gastroesophageal reflux disease) Hyperlipidemia Diabetes CHF (congestive heart failure) CKD (chronic kidney disease) Hypertension Pulmonary embolism Hernia Surgical History H/O heart bypass surgery Hx of cholecystectomy Family History Other Diabetes Hyperlipidemia Hypertension Social History Smoking and tobacco/nicotine status: former use of tobacco/nicotine Alcohol intake: current Alcohol intake frequency: holidays/special occasions only Substance/Drug Use: never Household members: spouse Marital status: Current gender identity: Male Physical Exam 2 Const: COMMON NORMALS: patient oriented x3 HENMT: COMMON NORMALS: normocephalic and atraumatic HEAD & SCALP: n ormocephalic and atraumatic Eye: COMMON NORMALS: Equal, round and reactive pupils present and EOMs intact bilaterally PUPIL: Yes Equal, round and reactive pupils present Neck/C-Spine: COMMON NORMALS: full ROM and supple Chest: COMMONS NORMALS: normal inspection of the chest and normal palpation of entire chest wall Resp: COMMON NORMALS: normal respiratory effort, No retractions, No use of accessory muscles and clear to auscultation bilaterally AUSCULTATION: clear to auscultation bilaterally Cardio: COMMON NORMALS: regular rate, regular rhythm and No murmurs present (Cardio) RATE: regular rate RHYTHM: regular rhythm GI: COMMON NORMALS: Normal to inspection, nondistended, normoactive bowel sounds present, Soft to palpation, non-tender and no masses PALPATION: Yes Soft to palpation Extremity: COMMON NORMALS: normal to inspection and full ROM Neuro: COMMON NORMALS: patient oriented x3, moves all extremities and no focal motor deficits Psych: COMMON NORMALS: mental status grossly normal, Normal thought process present and cooperative THOUGHT PROCESS: Normal thought process present Skin: COMMON NORMALS: no rashes or lesions noted and no wounds GENERAL SKIN EXAM: no rashes or lesions noted Course 2 Vital Signs: Vital signs: Vital Signs Temperature 97.7 F 04/07/24 11:42 Pulse Rate 64 04/07/24 12:15 Respiratory Rate 17 04/07/24 11:42 Blood Pressure 105/56 04/07/24 12:15 Pulse Oximetry 92 04/07/24 12:15 Oxygen Delivery Me thod Room Air 04/07/24 12:15 MDM - Recheck/Abnormal Lab/Rx Medical Decision Making Patient presents here with concern of possible anemia his hemoglobin here is 8.1 he has no signs of bleeding he feels improved here his vitals have been normal he stable for discharge he is to have his hemoglobin rechecked next week he is to return if worsening he understands agrees to plan. Medical Records I reviewed the patient's medical records. Lab Data I reviewed the patient's lab results. 04/07/24 12:22 04/07/24 12:22 Radiology Impressions Chest X-Ray 04/07/24 12:23 IMPRESSION: 1. Mild infiltrate and/or atelectasis in the lingula. This may represent developing pneumonia. 2. Mild cardiac enlargement. Small LEFT basal pleural effusion. Laboratory Results WBC 5.12 10^3/uL (3.29-11.43) 04/07/24 12:22 RBC 3.62 10^6/uL (3.85-5.65) L 04/07/24 12: Hgb 8.10 g/dL (11.27-16.99) L 04/07/24 12:22 Hct 30.7 % (37-53) L 04/07/24 12: MCV 84.8 fl (82-101) 04/07/24 12: MCH 22.4 pg (27-33) L 04/07/24 12: MCHC 26.4 g/dL (30-55) L 04/07/24 12:22 RDW 18.6 % (12.1-15.1) H 04/07/24 12:22 Plt Count 95 10^3/cmm (157-399) L 04/07/24 12: MPV 10.7 fL (7.4-10.4) H 04/07/24 12: Neut % (Auto) 76.8 % 04/07/24 12: Lymph % (Auto) 11.9 % 04/07/24 12: [place] % (Auto) 7.4 % 04/07/24 12:22 Eos % (Auto) 2.9 % 04/07/24 12: Baso % (Auto) 0.6 % 04/07/24 12: Neut # (Auto) 3.93 10^3/uL (1.8-7.7) 04/07/24 12: Lymph # (Auto) 0.6 10^3/uL (0.8-4.8) L 04/07/24 12:22 [place] # (Auto) 0.4 10^3/uL (0.2-0.9) 04/07/24 12:22 Eos # (Auto) 0.2 10^3/uL (0.0-0.8) 04/07/24 12:22 Baso # (Auto) 0.0 10^3/uL (0.0-0.1) 04/07/24 12: Nucleated RBC % (auto) 0 % 04/07/24 12: Nucleated RBCs # 0.0 /100WBC 04/07/24 12:22 Sodium 141 mmol/L (136-145) 04/07/24 12:22 Potassium 4.7 mmol/L (3.5-5.1) 04/07/24 12:22 Chloride 103 mmol/L (98-107) 04/07/24 12:22 Carbon Dioxide 24 mmol/L (22-29) 04/07/24 12:22 Anion Gap 18.7 (5-19) 04/07/24 12:22 BUN 40 mg/dL (8-23) H 04/07/24 12:22 Creatinine 1.8 mg/dL (0.7-1.2) H 04/07/24 12:22 GFR Calculation Not Reportable 04/07/24 12:22 Glucose 157 mg/dL (65-115) H 04/07/24 12:22 Calculated Osmolality 305 mOsm/kg (285-295) H 04/07/24 12:22 Calcium 8.9 mg/dL (8.5-10.5) 04/07/24 12:22 Total Bilirubin 0.6 mg/dL (0.15-1.2) 04/07/24 12:22 AST 11 U/L (0-40) 04/07/24 12:22 ALT < 5 U/L (0-41) 04/07/24 12:22 Alkaline Phosphatase 73 U/L (40-130) 04/07/24 12:22 NT-Pro-B Natriuret Pep 6541 pg/mL (0-450) H 04/07/24 12:22 Total Protein 5.9 g/dL (6.6-8.7) L 04/07/24 12:22 Albumin 3.9 g/dL (3.5-5.2) 04/07/24 12:22 Globulin 2.0 g/dL (1.3-4.6) 04/07/24 12:22 TSH 6.32 uIU/mL (0.27-4.20) H 04/07/24 12:22 All radiology interpretation(s) finalized by discharge EKG Data EKG 1: I personally reviewed and interpreted this EKG as follows: EKG interpretation date: 04/07/24 EKG interpretation time: 12:35 Interpretation: nsr hr [address] elevation qrs 167 qtc 473 Discharge Plan Discharge Patient Disposition: Home Clinical Impression: Generalized weakness Condition: Stable Prescriptions: No Action Entresto 24-26 mg tablet 1 tab PO BID Qty: 180 3RF furosemide 40 mg tablet 40 mg PO BID PRN (Reason: Edema) Qty: 60 4RF (DME) pen needle, diabetic [TechLITE Pen Needle] 31 gauge x 5/16 needle See Rx Instructions .ROUTE .COMPLEX Qty: 100 3RF Dose Instruction: USE DIRECTED with levemir TWICE DAILY Rx Instructions: USE DIRECTED with levemir TWICE DAILY Bydureon BCise 2 mg/0.85 mL auto-injector 2 mg SUBCUT Q7D Qty: 10.2 4RF Rx Instructions: ON WEDNESDAY. Fax Script to [facility] [phone]. Eliquis 5 mg tablet 5 mg PO BID Qty: 180 3RF levothyroxine 50 mcg tablet 50 mcg PO DAILY Qty: 90 1RF gabapentin 800 mg tablet 800 mg PO BID Qty: 180 1RF pantoprazole 40 mg tablet,delayed release (DR/EC) 40 mg PO DAILY metoprolol succinate 25 mg tablet extended release 24 hr 25 mg PO DAILY Hold Instructions: see cardiology rosuvastatin 5 mg tablet 5 mg PO DAILY allopurinol 300 mg tablet 300 mg PO DAILY Levemir FlexPen 100 unit/mL (3 mL) insulin pen 60 unit SUBCUT BID ferrous sulfate [Iron (ferrous sulfate)] 325 mg (65 mg iron) Tablet 325 mg PO DAILY folic acid 1 mg Tablet 1 mg PO DAILY Discharge Orders: Discharge ED (Routine); Ordered 04/07/24 Ordered By: Lisa Warner Referrals: Candice Thakkar MD [Primary Care Provider] - 4-7 days Discharge Diet: Advance as tolerated Discharge Activity: Resume usual activity Patient Instructions: Weakness (ED) Coding Level of Care Code ED Bacteriologist Pharmaceutical for Heather Garcia
--- NOTE | 2024-04-07 12:43 | PC.PHAR ---
[facility]
[2024-04-07 12:52] LABS: Alanine Aminotransferase < 5 U/L (0-41); Albumin Level 3.9 g/dL (3.5-5.2); Alkaline Phosphatase 73 U/L (40-130); Anion Gap 18.7 (5-19); Aspartate Amino Transferase 11 U/L (0-40); Blood Urea Nitrogen 40 mg/dL (8-23); Calcium 8.9 mg/dL (8.5-10.5); Carbon Dioxide 24 mmol/L (22-29); Chloride 103 mmol/L (98-107); Creatinine Clr Calc Pharmacy 38.7007; Glucose 157 mg/dL (65-115); NT Pro B Type Natriuretic Pept 6541 pg/mL (0-450); Osmolality Calculated 305 mOsm/kg (285-295); Potassium 4.7 mmol/L (3.5-5.1); Sodium 141 mmol/L (136-145); Total Bilirubin 0.6 mg/dL (0.15-1.2); Total Protein 5.9 g/dL (6.6-8.7)
--- NOTE | 2024-04-07 12:52 | PC.PHAR ---
i have a couple discrepancies with 2 meds, furosemide patients states 20mg am, 20mg pm: med list has 40mg bid last filled 04/06/24(pharmacy confirms this dose) levemir patient states 40 units am & 40 units bedtime med list has 40 units at bedtime only last filled 03/21/24, called pharmacy and they have 60 units bid last filled 03/29/24
[2024-04-07 12:56] LABS: Thyroid Stimulating Hormone 6.32 uIU/mL (0.27-4.20)
[2024-04-07] MEDS: FUROsemide 10 mg/mL SDV 10mL 60 MG IVP (13:15)
[2024-04-07 14:31] VITALS: BP 164/72; PULSE 87; O2SAT 95
== END 2024-04-07 14:36 | disposition home or self-care (01) ==
PROVIDERS: Emergency Provider Emergency Medicine; PCP Family Medicine
DX: R53.1 Weakness (principal)
CPT/HCPCS: 36415; 71045; 80053; 83880; 84443; 85025; 93005; 96374; 99285; J1940

== ENCOUNTER → 2024-05-15 14:01 | Outpatient (BNVA) | payer OTHER, SELFPAY | PROVIDERS: PCP Family Medicine; Visit Provider Internal Medicine Cardiovascular Disease | DX: I13.0 Hypertensive heart and chronic kidney disease with heart failure and stage 1 through stage 4 chronic kidney disease, or unspecified chronic kidney disease (principal); I50.32 Chronic diastolic (congestive) heart failure; N18.9 Chronic kidney disease, unspecified; I25.10 Atherosclerotic heart disease of native coronary artery without angina pectoris; E11.22 Type 2 diabetes mellitus with diabetic chronic kidney disease; Z87.891 Personal history of nicotine dependence; Z79.01 Long term (current) use of anticoagulants; Z79.4 Long term (current) use of insulin | CPT/HCPCS: 99213 ==

== ENCOUNTER 2024-08-26 20:57 | Emergency (ER) | payer OTHER, SELFPAY ==
--- NOTE | 2024-08-26 21:03 | ECG_ITS ---
[facility] Test Date: 2024-08-26 Pat Name: Shaila Galvan Department: Room: Gender: Male Technical Training Coordinator: : 1940 Requested By: Marina Mcnally Order Number: [id number] Amina MD: LINH MAGANA Measurements Intervals [place] Rate: 69 P: 0 CO: 0 QRS: -65 QRSD: 150 T: 193 QT: 461 QTc: 496 Interpretive Statements ATRIAL FLUTTER/TACHYCARDIA WITH ABERRANT CONDUCTION OR VENTRICULAR PREMATURE COMPLEXES LEFT AXIS DEVIATION [QRS AXIS < -30] INTRAVENTRICULAR CONDUCTION DELAY [130+ ms QRS DURATION] Compared to ECG 04/07/2024 12:35:29 Ventricular premature complex(es) now present Aberrant conduction of supraventricular beat(s) now present Electronically Signed On 08-28-2024 18:09:50 CDT by LINH MAGANA [id number]
[2024-08-26 21:05] VITALS: BP 140/54; PULSE 68; RESP 19; TEMP 36.4; O2SAT 100; BMI 29.1
--- NOTE | 2024-08-26 21:06 | XRR_ITS ---
PROCEDURE INFORMATION: Exam: XR Chest Exam date and time: 08/26/2024 9:24 PM Age: 84 years old Clinical indication: SOB; Weakness TECHNIQUE: Imaging protocol: Radiologic exam of the chest. Views: 1 view. COMPARISON: CR XR chest 1V portable [id number] 04/07/2024 12:26 PM FINDINGS: Lungs: Unremarkable. No consolidation. Pleural spaces: Unremarkable. No pleural effusion. No pneumothorax. Heart/Mediastinum: Cardiomegaly is identified. Bones/joints: There has been a sternotomy. XR/XR chest 1V portable [id number] IMPRESSION: There are no acute concerning abnormalities.
--- NOTE | 2024-08-26 21:07 | ED_ITS ---
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 He has been having issues with this for the last couple of days now. About 3 days he says. EMS also reports he has not urinated all day. There is concern for UTI. I would also have concern for renal failure. He says he has been decreasing his insulin every day for the last 3 days and still having low blood sugars. No fevers. No cough. No shortness of breath. No abdominal pain. He is currently has no altered mental status. Related Data Home Medications ?Medication ?Instructions ?Recorded ?Confirmed pantoprazole 40 mg tablet,delayed 40 mg PO DAILY 10/0205/15/24 release rosuvastatin 5 mg tablet 5 mg PO DAILY 10/03/2305/15 allopurinol 300 mg tablet 300 mg PO DAILY 04/07/2408/07 ferrous sulfate 325 mg (65 mg 325 mg PO DAILY 04/07/24 05/15/24 iron) tablet (Iron (ferrous sulfate)) folic acid 1 mg tablet 1 mg PO DAILY 04/07/2405/15 insulin detemir U-100 100 unit/mL 60 unit SUBCUT BID 1 05/15/24 (3 mL) subcutaneous pen (Levemir FlexPen) Previous Rx's ?Medication ?Instructions ?Recorded pen needle, diabetic 31 gauge x #100 ea 01/20/2310/27 (TechLITE Pen Needle) exenatide microspheres 2 mg/0.85 2 mg (0.85 mL) SUBCUT Q7D #10.2 mL 05/31/23 mL subcutaneous auto-injector (Bydureon BCise) sacubitril 24 mg-valsartan 26 mg 1 tab PO BID #180 tab s 10/21/23 tablet (Entresto) furosemide 40 mg tablet 40 mg PO BID PRN Edema #60 t abs 12/06/23 gabapentin 800 mg tablet 800 mg PO BID #180 tabs 11/13 02/04 levothyroxine 50 mcg tablet 50 mcg PO DAILY #90 tabs 0 12/10/23 apixaban 2.5 mg tablet 2.5 mg PO BID #180 tabs 05/15 09/04 Allergies Allergy/AdvReac Type Severity Reaction Status Date / Time guaifenesin (From Mucinex) Allergy Unknown Unknown Verified 05/15/24 14:36 duloxetine (From Cymbalta) Allergy Unknown Verified 05/15/24 14:36 lorazepam (From Ativan) Allergy Unknown Verified 05/15/24 14:36 pregabalin (From Lyrica) Allergy Unknown Verified 05/15/24 14:36 Review of Systems 2 Narrative: Constitutional symptoms: Negative except as documented in HPI. Skin symptoms: Negative except as documented in HPI. Eye symptoms: Negative except as documented in HPI. ENMT symptoms: Negative except as documented in HPI. Respiratory symptoms: Negative except as documented in HPI. Cardiovascular symptoms: Negative except as documented in HPI. Gastrointestinal symptoms: Negative except as documented in HPI. Genitourinary symptoms: Negative except as documented in HPI. Musculoskeletal symptoms: Negative except as documented in HPI. Neurologic symptoms: Negative except as documented in HPI. Psychiatric symptoms: Negative except as documented in HPI. Endocrine symptoms: Negative except as documented in HPI. PFSH ED 2 PFSH: Medical History Enrolled in chronic care management Ischemic cardiomyopathy Anticoagulation adequate with anticoagulant therapy Varicose veins of bilateral lower extremities with other complications Claudication Chronic gout History of stroke PAD (peripheral artery disease) CAD (coronary artery disease) Diabetic peripheral neuropathy Chronic pain disorder Insomnia GERD (gastroesophageal reflux disease) Hyperlipidemia Diabetes CHF (congestive heart failure) CKD (chronic kidney disease) Hypertension Pulmonary embolism Hernia Surgical History H/O heart bypass surgery Hx of cholecystectomy Family History Other Diabetes Hyperlipidemia Hypertension Social History Smoking and tobacco/nicotine status: former use of tobacco/nicotine (quit 2002) Alcohol intake: current Alcohol intake frequency: holidays/special occasions only Substance/Drug Use: never Household members: spouse Marital status: Current gender identity: Male Physical Exam 2 Narrative: General: Alert, no acute distress. Skin: Warm, dry. Head: Normocephalic, atraumatic. Neck: Supple, trachea midline. Eye: Extraocular movements are intact. Ears, nose, mouth and throat: mucosa moist. Cardiovascular: Regular, Normal peripheral perfusion. Respiratory: Lungs are clear to auscultation, respirations are non-labored, breath sounds are equal, Symmetrical chest wall expansion. Gastrointestinal: Soft, Nontender, Non distended Musculoskeletal: Normal ROM, no deformity. Neurological: Alert and oriented, No focal neurological deficit observed. Psychiatric: Cooperative, appropriate mood & affect. Course 2 Vital Signs: Vital signs: Vital Signs Temperature 97.6 F 08/26/24 21:05 Pulse Rate 66 08/26/24 21:26 Respiratory Rate 21 H 08/26/24 21:26 Blood Pressure 134/71 08/26/24 21:26 Pulse Oximetry 97 08/26/24 21:26 Oxygen Delivery Me thod Room Air 08/26/24 21:26 MDM - Altered Mental Status Medical Decision Making Medical decision making: Differential diagnosis for the patient with hyperglycemia would include but not be limited to and would be based on the above HPI review of systems and physical exam: DKA. Dehydration. Renal failure. Concern for electrolyte abnormalities. Concern for underlying infection that might result in hyperglycemia. Medical non-compliance Orders placed to evaluate differential diagnosis of the patient with hyperglycemia are based on the above differential, HPI and physical exam. Patient care transitioned to Dr. Garcia at shift change Lab Data 08/26/24 21:19 08/26/24 21:19 Radiology Impressions Chest X-Ray 08/26/24 21:06 IMPRESSION: There are no acute concerning abnormalities. Laboratory Results WBC 5.62 10^3/uL (3.29-11.43) 08/26/24 21:19 RBC 4.82 10^6/uL (3.85-5.65) 08/26/24 21:19 Hgb 13.90 g/dL (11.27-16.99) 08/26/24 21: Hct 46.6 % (37-53) 08/26/24 21:19 MCV 96.7 fl (82-101) 08/26/24 21:19 MCH 28.8 pg (27-33) 08/26/24 21: MCHC 29.8 g/dL (30-55) L 08/26/24 21:19 RDW 17.8 % (12.1-15.1) H 08/26/24 21:19 Plt Count 85 10^3/cmm (157-399) L 08/26/24 21:19 MPV 10.6 fL (7.4-10.4) H 08/26/24 21:19 Neut % (Auto) 81.9 % 08/26/24 21: Lymph % (Auto) 8.7 % 08/26/24 21:19 Mer[place] % (Auto) 7.7 % 08/26/24 21:19 Eos % (Auto) 1.1 % 08/26/24 21:19 Baso % (Auto) 0.4 % 08/26/24: Neut # (Auto) 4.61 10^3/uL (1.8-7.7) 08/26/24 21:19 Lymph # (Auto) 0.5 10^3/uL (0.8-4.8) L 08/26/24 21:19 [place] # (Auto) 0.4 10^3/uL (0.2-0.9) 08/26/24 21:19 Eos # (Auto) 0.1 10^3/uL (0.0-0.8) 08/26/24: Baso # (Auto) 0.0 10^3/uL (0.0-0.1) 08/26/24 21:19 Nucleated RBC % (auto) 0 % 08/26/24: Nucleated RBCs # 0.0 /100WBC 08/26/24 21:19 Sodium 142 mmol/L (136-145) 08/26/24 21:19 Potassium 4.1 mmol/L (3.5-5.1) 08/26/24 21:19 Chloride 105 mmol/L (98-107) 08/26/24 21: Carbon Dioxide 25 mmol/L (22-29) 08/26/24 21:19 Anion Gap 16.1 (5-19) 08/26/24 21: BUN 35 mg/dL (8-23) H 08/26/24 21: Creatinine 1.6 mg/dL (0.7-1.2) H 08/26/24 21: GFR Calculation Not Reportable 08/26/24 21: Glucose 135 mg/dL (65-115) H 08/26/24 21: Calculated Osmolality 304 mOsm/kg (285-295) H 08/26/24 21: Lactic Acid 1.4 mmol/L (0.5-2.2) 08/26/24 21: Calcium 9.3 mg/dL (8.5-10.5) 08/26/24: Phosphorus 3.8 mg/dL (2.5-4.5) 08/26/24: Magnesium 2.0 mg/dL (1.7-2.3) 08/26/24: Total Bilirubin 0.6 mg/dL (0.15-1.2) 08/26/24: AST 17 U/L (0-40) 08/26/24 21: ALT 9 U/L (0-41) 08/26/24 21: Alkaline Phosphatase 97 U/L (40-130) 08/26/24 21: C-Reactive Protein 10.2 mg/L (0.0-4.9) H 08/26/24 21: Total Protein 6.7 g/dL (6.6-8.7) 08/26/24 21: Albumin 3.9 g/dL (3.5-5.2) 08/26/24 21: Globulin 2.8 g/dL (1.3-4.6) 08/26/24 21: Urine Color Yellow (Yellow) 08/26/24: Urine Appearance Clear (CLEAR) 08/26/24: Urine pH 5.5 (5-7) 08/26/24: Ur Specific [place] 1.017 (1.005-1.030) 08/26/24: Urine Protein 2+ (Negative) A 08/26/24: Urine Glucose (UA) Negative (Normal) 08/26/24: Urine Ketones Negative (Negative) 08/26/24:44 Urine Blood Trace (Negative) A 08/26/24 21:44 Urine Nitrate Negative (Negative) 08/26/24 21:44 Urine Bilirubin Negative (Negative) 08/26/24 21:44 Urine Urobilinogen 1.0 mg/dL (Negative) 08/26/24 21:44 Ur Leukocyte Esterase Negative (Negative) 08/26/24 21:44 Urine RBC 0-2 /hpf (0-2) 08/26/24 21:44 Urine WBC 0-5 /hpf (0-5) 08/26/24 21:44 Ur Squamous Epith Cells 0-5 /hpf (0-5) 08/26/24 21:44 Amorphous Sediment Not Reportable 08/26/24 21:44 Urine Bacteria None seen /hpf (NONE) 08/26/24 21:44 Hyaline Casts 2.87 /lpf 08/26/24 21:44 Influenza A (PCR) Negative (Negative) 08/26/24 21:19 Influenza Type B (PCR) Negative (Negative) 08/26/24 21:19 RSV (PCR) Negative (Negative) 08/26/24 21:19 SARS-CoV-2 (PCR) Negative (Negative) 08/26/24 21:19 Discharge Plan Discharge Condition: Stable Prescriptions: No Action Entresto 24-26 mg tablet 1 tab PO BID Qty: 180 3RF furosemide 40 mg tablet 40 mg PO BID PRN (Reason: Edema) Qty: 60 4RF (DME) pen needle, diabetic [TechLITE Pen Needle] 31 gauge x 5/16 needle See Rx Instructions .ROUTE .COMPLEX Qty: 100 3RF Dose Instruction: USE DIRECTED with levemir TWICE DAILY Rx Instructions: USE DIRECTED with levemir TWICE DAILY Bydureon BCise 2 mg/0.85 mL auto-injector 2 mg SUBCUT Q7D Qty: 10.2 4RF Rx Instructions: ON WEDNESDAY. Fax Script to [email or web address] [phone]. levothyroxine 50 mcg tablet 50 mcg PO DAILY Qty: 90 1RF gabapentin 800 mg tablet 800 mg PO BID Qty: 180 1RF apixaban 2.5 mg tablet 2.5 mg PO BID Qty: 180 3RF pantoprazole 40 mg tablet,delayed release (DR/EC) 40 mg PO DAILY rosuvastatin 5 mg tablet 5 mg PO DAILY allopurinol 300 mg tablet 300 mg PO DAILY Levemir FlexPen 100 unit/mL (3 mL) insulin pen 60 unit SUBCUT BID ferrous sulfate [Iron (ferrous sulfate)] 325 mg (65 mg iron) Tablet 325 mg PO DAILY folic acid 1 mg Tablet 1 mg PO DAILY Referrals: Candice Thakkar MD [Primary Care Provider] - Discharge Diet: Usual diet Discharge Activity: Resume usual activity Activity Restrictions/Additional Instructions: 1. Call PCP and / or Urology for follow up on Wednesday 2. Return for inabililty to urinate or other problems. 3. Continue to monitor blood glucose closely Print Language: Citizen [place] Coding Level of Care Code ED Screen Printing Inspector for Chg Fwd Documented by User: Rich Garcia DO 08/26/24 23:22 HPI - Altered Mental Status 2 General: Chief Complaint: Recheck/Abnormal Lab/Rx Stated Complaint: low bs Time Seen by Provider: 08/26/24 21:04 Related Data Home Medications ?Medication ?Instructions ?Recorded ?Confirmed pantoprazole 40 mg tablet,delayed 40 mg PO DAILY 10/0205/15/24 release rosuvastatin 5 mg tablet 5 mg PO DAILY 10/03/2305/15 allopurinol 300 mg tablet 300 mg PO DAILY 04/07/2408/07 ferrous sulfate 325 mg (65 mg 325 mg PO DAILY 04/07/24 05/15/24 iron) tablet (Iron (ferrous sulfate)) folic acid 1 mg tablet 1 mg PO DAILY 04/07/2405/15 insulin detemir U-100 100 unit/mL 60 unit SUBCUT BID 1 05/15/24 (3 mL) subcutaneous pen (Levemir FlexPen) Previous Rx's ?Medication ?Instructions ?Recorded pen needle, diabetic 31 gauge x #100 ea 01/20/2310/27 (TechLITE Pen Needle) exenatide microspheres 2 mg/0.85 2 mg (0.85 mL) SUBCUT Q7D #10.2 mL 05/31/23 mL subcutaneous auto-injector (Mercaux) sacubitril 24 mg-valsartan 26 mg 1 tab PO BID #180 tab s 10/21/23 tablet (Entresto) furosemide 40 mg tablet 40 mg PO BID PRN Edema #60 t abs 12/06/23 gabapentin 800 mg tablet 800 mg PO BID #180 tabs 11/13 02/04 levothyroxine 50 mcg tablet 50 mcg PO DAILY #90 tabs 0 12/10/23 apixaban 2.5 mg tablet 2.5 mg PO BID #180 tabs 05/15 09/04 Allergies Allergy/AdvReac Type Severity Reaction Status Date / Time guaifenesin (From Mucinex) Allergy Unknown Unknown Verified 05/15/24 14:36 duloxetine (From Cymbalta) Allergy Unknown Verified 05/15/24 14:36 lorazepam (From Ativan) Allergy Unknown Verified 05/15/24 14:36 pregabalin (From Lyrica) Allergy Unknown Verified 05/15/24 14:36 PFSH ED 2 PFSH: Medical History Enrolled in chronic care management Ischemic cardiomyopathy Anticoagulation adequate with anticoagulant therapy Varicose veins of bilateral lower extremities with other complications Claudication Chronic gout History of stroke PAD (peripheral artery disease) CAD (coronary artery disease) Diabetic peripheral neuropathy Chronic pain disorder Insomnia GERD (gastroesophageal reflux disease) Hyperlipidemia Diabetes CHF (congestive heart failure) CKD (chronic kidney disease) Hypertension Pulmonary embolism Hernia Surgical History H/O heart bypass surgery Hx of cholecystectomy Family History Other Diabetes Hyperlipidemia Hypertension Social History Smoking and tobacco/nicotine status: former use of tobacco/nicotine (quit 2002) Alcohol intake: current Alcohol intake frequency: holidays/special occasions only Substance/Drug Use: never Household members: spouse Marital status: Current gender identity: Male Course 2 Vital Signs: Vital signs: Vital Signs Temperature 97.6 F 08/26/24 21:05 Pulse Rate 66 08/26/24 21:26 Respiratory Rate 21 H 08/26/24 21:26 Blood Pressure 134/71 08/26/24 21:26 Pulse Oximetry 97 08/26/24 21:26 Oxygen Delivery Me thod Room Air 08/26/24 21:26 MDM - Altered Mental Status Medical Decision Making Medical decision making: Differential diagnosis for the patient with hyperglycemia would include but not be limited to and would be based on the above HPI review of systems and physical exam: DKA. Dehydration. Renal failure. Concern for electrolyte abnormalities. Concern for underlying infection that might result in hyperglycemia. Medical non-compliance Orders placed to evaluate differential diagnosis of the patient with hyperglycemia are based on the above differential, HPI and physical exam. Patient care transitioned to Dr. Garcia at shift change I assumed care of this patient with the above diagnoses and complaints. Patient's workup here in the department was for the most part unremarkable. His renal function was near baseline he was found to have some urinary retention but he was still urinating and did not want a catheter. The patient has primary care and will make a follow-up with primary care and urology. Lab Data 08/26/24 21:19 08/26/24 21:19 Radiology Impressions Chest X-Ray 08/26/24 21:06 IMPRESSION: There are no acute concerning abnormalities. Laboratory Results WBC 5.62 10^3/uL (3.29-11.43) 08/26/24 21:19 RBC 4.82 10^6/uL (3.85-5.65) 08/26/24 21:19 Hgb 13.90 g/dL (11.27-16.99) 08/26/24 21: Hct 46.6 % (37-53) 08/26/24 21: MCV 96.7 fl (82-101) 08/26/24 21: MCH 28.8 pg (27-33) 08/26/24 21: MCHC 29.8 g/dL (30-55) L 08/26/24 21:19 RDW 17.8 % (12.1-15.1) H 08/26/24 21:19 Plt Count 85 10^3/cmm (157-399) L 08/26/24 21: MPV 10.6 fL (7.4-10.4) H 08/26/24 21:19 Neut % (Auto) 81.9 % 08/26/24 21:19 Lymph % (Auto) 8.7 % 08/26/24 21:19 [place] % (Auto) 7.7 % 08/26/24 21:19 Eos % (Auto) 1.1 % 08/26/24 21:19 Baso % (Auto) 0.4 % 08/26/24 21:19 Neut # (Auto) 4.61 10^3/uL (1.8-7.7) 08/26/24 21:19 Lymph # (Auto) 0.5 10^3/uL (0.8-4.8) L 08/26/24 21:19 [place] # (Auto) 0.4 10^3/uL (0.2-0.9) 08/26/24 21:19 Eos # (Auto) 0.1 10^3/uL (0.0-0.8) 08/26/24 21:19 Baso # (Auto) 0.0 10^3/uL (0.0-0.1) 08/26/24 21:19 Nucleated RBC % (auto) 0 % 08/26/24 21: Nucleated RBCs # 0.0 /100WBC 08/26/24 21:19 Sodium 142 mmol/L (136-145) 08/26/24 21:19 Potassium 4.1 mmol/L (3.5-5.1) 08/26/24 21:19 Chloride 105 mmol/L (98-107) 08/26/24 21: Carbon Dioxide 25 mmol/L (22-29) 08/26/24 21:19 Anion Gap 16.1 (5-19) 08/26/24 21:19 BUN 35 mg/dL (8-23) H 08/26/24 21:19 Creatinine 1.6 mg/dL (0.7-1.2) H 08/26/24 21:19 GFR Calculation Not Reportable 08/26/24 21: Glucose 135 mg/dL (65-115) H 08/26/24 21:19 Calculated Osmolality 304 mOsm/kg (285-295) H 08/26/24 21:19 Lactic Acid 1.4 mmol/L (0.5-2.2) 08/26/24 21:19 Calcium 9.3 mg/dL (8.5-10.5) 08/26/24 21: Phosphorus 3.8 mg/dL (2.5-4.5) 08/26/24 21: Magnesium 2.0 mg/dL (1.7-2.3) 08/26/24 21: Total Bilirubin 0.6 mg/dL (0.15-1.2) 08/26/24: AST 17 U/L (0-40) 08/26/24: ALT 9 U/L (0-41) 08/26/24 21: Alkaline Phosphatase 97 U/L (40-130) 08/26/24 21: C-Reactive Protein 10.2 mg/L (0.0-4.9) H 08/26/24: Total Protein 6.7 g/dL (6.6-8.7) 08/26/24: Albumin 3.9 g/dL (3.5-5.2) 08/26/24: Globulin 2.8 g/dL (1.3-4.6) 08/26/24 21: Urine Color Yellow (Yellow) 08/26/24: Urine Appearance Clear (CLEAR) 08/26/24: Urine pH 5.5 (5-7) 08/26/24: Ur Specific [place] 1.017 (1.005-1.030) 08/26/24 21: Urine Protein 2+ (Negative) A 08/26/24: Urine Glucose (UA) Negative (Normal) 08/26/24: Urine Ketones Negative (Negative) 08/26/24: Urine Blood Trace (Negative) A 08/26/24 21: Urine Nitrate Negative (Negative) 08/26/24: Urine Bilirubin Negative (Negative) 08/26/24: Urine Urobilinogen 1.0 mg/dL (Negative) 08/26/24: Ur Leukocyte Esterase Negative (Negative) 08/26/24 21:44 Urine RBC 0-2 /hpf (0-2) 08/26/24 21:44 Urine WBC 0-5 /hpf (0-5) 08/26/24 21:44 Ur Squamous Epith Cells 0-5 /hpf (0-5) 08/26/24 21:44 Amorphous Sediment Not Reportable 08/26/24 21:44 Urine Bacteria None seen /hpf (NONE) 08/26/24 21:44 Hyaline Casts 2.87 /lpf 08/26/24 21:44 Influenza A (PCR) Negative (Negative) 08/26/24 21:19 Influenza Type B (PCR) Negative (Negative) 08/26/24 21:19 RSV (PCR) Negative (Negative) 08/26/24 21:19 SARS-CoV-2 (PCR) Negative (Negative) 08/26/24 21:19 XR interpretation done by ED provider, pending radiology final review Discharge Plan Discharge Condition: Stable Prescriptions: No Action Entresto 24-26 mg tablet 1 tab PO BID Qty: 180 3RF furosemide 40 mg tablet 40 mg PO BID PRN (Reason: Edema) Qty: 60 4RF (DME) pen needle, diabetic [TechLITE Pen Needle] 31 gauge x 5/16 needle See Rx Instructions .ROUTE .COMPLEX Qty: 100 3RF Dose Instruction: USE DIRECTED with levemir TWICE DAILY Rx Instructions: USE DIRECTED with levemir TWICE DAILY Bydureon BCise 2 mg/0.85 mL auto-injector 2 mg SUBCUT Q7D Qty: 10.2 4RF Rx Instructions: ON WEDNESDAY. Fax Script to [email or web address] [phone]. levothyroxine 50 mcg tablet 50 mcg PO DAILY Qty: 90 1RF gabapentin 800 mg tablet 800 mg PO BID Qty: 180 1RF apixaban 2.5 mg tablet 2.5 mg PO BID Qty: 180 3RF pantoprazole 40 mg tablet,delayed release (DR/EC) 40 mg PO DAILY rosuvastatin 5 mg tablet 5 mg PO DAILY allopurinol 300 mg tablet 300 mg PO DAILY Levemir FlexPen 100 unit/mL (3 mL) insulin pen 60 unit SUBCUT BID ferrous sulfate [Iron (ferrous sulfate)] 325 mg (65 mg iron) Tablet 325 mg PO DAILY folic acid 1 mg Tablet 1 mg PO DAILY Referrals: Candice Thakkar MD [Primary Care Provider] - Discharge Diet: Usual diet Discharge Activity: Resume usual activity Activity Restrictions/Additional Instructions: 1. Call PCP and / or Urology for follow up on Wednesday 2. Return for inabililty to urinate or other problems. 3. Continue to monitor blood glucose closely Print Language: Citizen Of [place] Coding Level of Care Code ED Screen Printing Inspector for Heather Garcia
[2024-08-26 21:26] VITALS: BP 134/71; PULSE 66; RESP 21; O2SAT 97
--- NOTE | 2024-08-26 21:27 | PC.NURSE ---
BG 166
[2024-08-26 21:36] LABS: Basophils % 0.4 %; Eosinophils # 0.1 10^3/uL (0.0-0.8); Eosinophils % 1.1 %; Hematocrit 46.6 % (37-53); Lymphocytes # 0.5 10^3/uL (0.8-4.8); Lymphocytes % 8.7 %; Mean Corpuscular HGB Conc 29.8 g/dL (30-55); Mean Corpuscular Hemoglobin 28.8 pg (27-33); Mean Corpuscular Volume 96.7 fl (82-101); Mean Platelet Volume 10.6 fL (7.4-10.4); Monocytes # 0.4 10^3/uL (0.2-0.9); Monocytes % 7.7 %; Neutrophils # 4.61 10^3/uL (1.8-7.7); Neutrophils % 81.9 %; Nucleated Red Blood Cells % 0 %; Platelet Count 85 10^3/cmm (157-399); Red Blood Count 4.82 10^6/uL (3.85-5.65); Red Cell Distribution Width 17.8 % (12.1-15.1); White Blood Count 5.62 10^3/uL (3.29-11.43)
[2024-08-26 21:52] LABS: Bilirubin Urine Negative (Negative); Blood Urine Trace (Negative); Glucose Urine UA Negative (Normal); Ketones Urine Negative (Negative); Leukocyte Esterase Urine Negative (Negative); Nitrate Urine Negative (Negative); Protein Urine 2+ (Negative); Specific Gravity, Urine 1.017 (1.005-1.030); Urine Appearance Clear (CLEAR); Urine Color Yellow (Yellow); pH Urine 5.5 (5-7)
[2024-08-26 21:56] LABS: Alanine Aminotransferase 9 U/L (0-41); Albumin Level 3.9 g/dL (3.5-5.2); Alkaline Phosphatase 97 U/L (40-130); Aspartate Amino Transferase 17 U/L (0-40); Blood Urea Nitrogen 35 mg/dL (8-23); C Reactive Protein 10.2 mg/L (0.0-4.9); Calcium 9.3 mg/dL (8.5-10.5); Carbon Dioxide 25 mmol/L (22-29); Chloride 105 mmol/L (98-107); Creatinine Clr Calc Pharmacy 43.0815; Globulin 2.8 g/dL (1.3-4.6); Glucose 135 mg/dL (65-115); Osmolality Calculated 304 mOsm/kg (285-295); Phosphorus 3.8 mg/dL (2.5-4.5); Sodium 142 mmol/L (136-145); Total Bilirubin 0.6 mg/dL (0.15-1.2); Total Protein 6.7 g/dL (6.6-8.7)
[2024-08-26 21:57] LABS: Anion Gap 16.1 (5-19); Lactic Sepsis W/Reflex 1.4 mmol/L (0.5-2.2); Potassium 4.1 mmol/L (3.5-5.1)
[2024-08-26 21:57] LABS: Bacteria Urine None Seen /hpf; Hyaline Casts Urine 2.87 /lpf; RBC Urine 0-2 /hpf (0-2); Squamous Epithelial Cell Urine 0-5 /hpf (0-5); WBC Urine 0-5 /hpf (0-5)
--- NOTE | 2024-08-26 22:10 | PC.NURSE ---
bladder scan 415 ml after void
[2024-08-26 22:11] LABS: Influenza A NEGATIVE (Negative); Influenza B NEGATIVE (Negative); Respiratory Syncytial Virus Ce NEGATIVE (Negative); SARS-CoV-2 PCR NEGATIVE (Negative)
[2024-08-26 23:23] VITALS: BP 154/81; PULSE 64; RESP 16; O2SAT 100
[2024-08-27 00:48] VITALS: BP 147/69; PULSE 77; RESP 21; O2SAT 99
== END 2024-08-27 00:11 | disposition home or self-care (01) ==
PROVIDERS: Emergency Medicine; Emergency Provider Family Medicine; PCP Family Medicine
DX: E11.65 Type 2 diabetes mellitus with hyperglycemia (principal); Z91.148 Patient's other noncompliance with medication regimen for other reason; E11.22 Type 2 diabetes mellitus with diabetic chronic kidney disease; I13.0 Hypertensive heart and chronic kidney disease with heart failure and stage 1 through stage 4 chronic kidney disease, or unspecified chronic kidney disease; N18.9 Chronic kidney disease, unspecified; I50.9 Heart failure, unspecified; I25.10 Atherosclerotic heart disease of native coronary artery without angina pectoris; Z11.52 Encounter for screening for COVID-19; Z87.891 Personal history of nicotine dependence
CPT/HCPCS: 36415; 71045; 80053; 81001; 83605; 83735; 84100; 85025; 86140; 87040; 87637; 93005; 99285

== ENCOUNTER 2024-08-30 15:05 | Oncology outpatient (recurring) (ONCR) | payer OTHER, SELFPAY ==
[2024-08-30 16:45] LABS: Reticulocyte % 1.5 % (0.5-2.0)
[2024-08-30 16:46] LABS: Basophils % 0.7 %; Eosinophils # 0.2 10^3/uL (0.0-0.8); Eosinophils % 3.5 %; Hematocrit 46.6 % (37-53); Lymphocytes # 1.1 10^3/uL (0.8-4.8); Mean Corpuscular HGB Conc 29.6 g/dL (30-55); Mean Corpuscular Hemoglobin 28.4 pg (27-33); Mean Corpuscular Volume 95.9 fl (82-101); Mean Platelet Volume 11.6 fL (7.4-10.4); Monocytes # 0.5 10^3/uL (0.2-0.9); Monocytes % 10.5 %; Neutrophils # 2.78 10^3/uL (1.8-7.7); Neutrophils % 61.1 %; Nucleated Red Blood Cells % 0 %; Platelet Count 84 10^3/cmm (157-399); Red Blood Count 4.86 10^6/uL (3.85-5.65); Red Cell Distribution Width 17.7 % (12.1-15.1); White Blood Count 4.55 10^3/uL (3.29-11.43)
[2024-08-30 17:00] LABS: Erythrocyte Sedimentation Rate 1 mm/hr (0-10)
[2024-08-30 17:04] LABS: Alanine Aminotransferase 13 U/L (0-41); Albumin Level 4.2 g/dL (3.5-5.2); Alkaline Phosphatase 99 U/L (40-130); Anion Gap 14.9 (5-19); Aspartate Amino Transferase 25 U/L (0-40); Blood Urea Nitrogen 39 mg/dL (8-23); C Reactive Protein 19.5 mg/L (0.0-4.9); Calcium 9.3 mg/dL (8.5-10.5); Carbon Dioxide 28 mmol/L (22-29); Chloride 104 mmol/L (98-107); Globulin 2.6 g/dL (1.3-4.6); Glucose 99 mg/dL (65-115); Immunoglobulin IGA 149 mg/dL (70-400); Immunoglobulin IGG 884 mg/dL (700-1600); Immunoglobulin IGM 51 mg/dL (40-230); Lactate Dehydrogenase 227 U/L (135-225); Osmolality Calculated 305 mOsm/kg (285-295); Potassium 3.9 mmol/L (3.5-5.1); Sodium 143 mmol/L (136-145); Total Bilirubin 0.7 mg/dL (0.15-1.2); Total Protein 6.8 g/dL (6.6-8.7)
[2024-08-30 17:21] LABS: Ferritin 78 ng/mL (30-400); Homocysteine 21.66 umol/l (0-15); Iron 41 ug/dL (59-158); Percent Saturation 14.4 % (20-50); Total Iron Binding Capacity 284 mcg/dl; Unsaturated Iron Binding 243 ug/dL (112-347)
[2024-08-30 17:36] LABS: Vitamin B12 622 pg/mL (232-1245)
[2024-08-30 18:08] LABS: Folate Level > 20.0 ng/mL (4.5-32.2)
[2024-09-01 06:36] LABS: PROTEIN, TOTAL 6.5 g/dL (6.1-8.1)
[2024-09-02 01:14] LABS: CARDIOLIPIN AB (IGA) <2.0 APL-U/mL; CARDIOLIPIN AB (IGG) <2.0 GPL-U/mL; CARDIOLIPIN AB (IGM) <2.0 MPL-U/mL
[2024-09-02 15:06] LABS: ALPHA 1 GLOBULIN 0.4 g/dL (0.2-0.3); ALPHA 2 GLOBULIN 0.6 g/dL (0.5-0.9); BETA 1 GLOBULIN 0.4 g/dL (0.4-0.6); BETA 2 GLOBULIN 0.3 g/dL (0.2-0.5); GAMMA GLOBULIN 0.8 g/dL (0.8-1.7)
[2024-09-03 21:10] LABS: Immunofixation Serum Normal pattern.
[2024-09-04 12:35] LABS: Anti-Nuclear Antibody Screen POSITIVE (NEGATIVE)
[2024-09-04 19:14] LABS: PROTEIN S, ACTIVITY 57 % normal (70-150)
[2024-09-04 20:40] LABS: PROTEIN C, ACTIVITY 79 % normal (70-180)
[2024-09-04 21:56] LABS: Beta 2 Glycoprotein IGA <2.0 U/mL (<20.0); Beta 2 Glycoprotein IGG <2.0 U/mL (<20.0); Beta 2 Glycoprotein IGM <2.0 U/mL (<20.0)
[2024-09-04 22:30] LABS: Lupus DRVVT Confirm NEGATIVE (NEGATIVE); Lupus Hexagonal Phas Confirm NEGATIVE (NEGATIVE); PTT-LA-Screen 42 sec (< OR = 40)
[2024-09-05 04:58] LABS: Methylmalonic Acid 416 nmol/L (85-423)
[2024-09-05 11:59] LABS: Erythropoietin 49.1 mIU/mL (2.6-18.5)
== END 2024-09-11 23:59 | disposition home or self-care (01) ==
PROVIDERS: PCP Family Medicine; Visit Provider Internal Medicine
DX: Z53.9 Procedure and treatment not carried out, unspecified reason (principal); D69.6 Thrombocytopenia, unspecified; D64.9 Anemia, unspecified; R06.02 Shortness of breath; N18.9 Chronic kidney disease, unspecified; G47.00 Insomnia, unspecified; I50.32 Chronic diastolic (congestive) heart failure; I26.99 Other pulmonary embolism without acute cor pulmonale; I25.5 Ischemic cardiomyopathy; I25.10 Atherosclerotic heart disease of native coronary artery without angina pectoris; Z79.01 Long term (current) use of anticoagulants; Z87.891 Personal history of nicotine dependence; Z79.899 Other long term (current) drug therapy
CPT/HCPCS: 36415; 80053; 82607; 82668; 82728; 82746; 82784; 83010; 83090; 83540; 83550; 83615; 83921; 84155; 84165; 85025; 85045; 85303; 85306; 85613; 85651; 85730; 86038; 86140; 86146; 86147; 86334; 99204

== ENCOUNTER 2024-09-20 14:24 | Oncology outpatient (recurring) (ONCR) | payer OTHER, SELFPAY | END 2024-10-11 23:59 | disposition home or self-care (01) | PROVIDERS: PCP Family Medicine; Visit Provider Internal Medicine | DX: D69.6 Thrombocytopenia, unspecified (principal); N18.9 Chronic kidney disease, unspecified; D50.9 Iron deficiency anemia, unspecified; I25.2 Old myocardial infarction; I25.10 Atherosclerotic heart disease of native coronary artery without angina pectoris; I50.32 Chronic diastolic (congestive) heart failure; E11.9 Type 2 diabetes mellitus without complications; I82.403 Acute embolism and thrombosis of unspecified deep veins of lower extremity, bilateral; Z79.01 Long term (current) use of anticoagulants; Z79.899 Other long term (current) drug therapy | CPT/HCPCS: 99213 ==

== ENCOUNTER 2024-09-21 09:42 | Outpatient (CLI) | payer OTHER, SELFPAY ==
--- NOTE | 2024-09-21 10:15 | US_ITS ---
WS: [id number] Complete ABDOMINAL ULTRASOUND HISTORY: thrombocytopenia COMPARISON: 01/11/2018 Liver: 16.0 cm in length. Normal size liver and echogenicity. No bile duct dilatation or mass. Portal Vein: Normal hepatopetal flow with monophasic waveform. Gallbladder: Prior cholecystectomy. CBD: 0.5 cm Pancreas: Not visualized. Right kidney: 8.4 cm x 5.2 x 4.8 cm. Cortex:1.0 cm. RIGHT kidney is measuring small. Length of the renal kidney in 2018 was 11.2 cm. There is also new diffuse cortical thinning. Cortical cyst mid kidney 2.6 x 2.9 x 2.7 cm. This cyst appears to be new since 2018. No solid mass or obstruction. Left kidney: 11.0 cm x 6.0 cm x 6.0 cm. Cortex: 1.2 cm. LEFT kidney is poorly visualized. It be difficult to exclude cystic or solid mass. There is no obstruction. Spleen: 14.8 cm. Spleen is slightly enlarged with granulomata. Aorta and IVC: Unremarkable abdominal aorta and IVC. US/US abdomen complete* [id number] Impression: 1. Difficult abdominal ultrasound. 2. Prior cholecystectomy. 3. No hepatobiliary dilatation. 4. RIGHT renal atrophy. Kidney has decreased from 11.2 cm in length to 8.4 cm. There is also mild diffuse cortical thinning. 5. RIGHT renal cyst. 6. Poorly visualized pancreas and LEFT kidney. 7. Mild splenomegaly.
== END 2024-09-21 09:43 | disposition home or self-care (01) ==
LOC: RAD 09:45
PROVIDERS: PCP Family Medicine; Visit Provider Internal Medicine
DX: I26.99 Other pulmonary embolism without acute cor pulmonale (principal); D69.6 Thrombocytopenia, unspecified; D64.9 Anemia, unspecified; Z90.49 Acquired absence of other specified parts of digestive tract; N26.1 Atrophy of kidney (terminal); R93.421 Abnormal radiologic findings on diagnostic imaging of right kidney; N28.1 Cyst of kidney, acquired; R16.1 Splenomegaly, not elsewhere classified; D73.89 Other diseases of spleen
CPT/HCPCS: 76700

== ENCOUNTER → 2024-11-20 13:57 | Outpatient (BNVA) | payer OTHER, SELFPAY | PROVIDERS: PCP Family Medicine; Visit Provider Internal Medicine Cardiovascular Disease | DX: I87.2 Venous insufficiency (chronic) (peripheral) (principal); I73.9 Peripheral vascular disease, unspecified; I25.10 Atherosclerotic heart disease of native coronary artery without angina pectoris; N26.1 Atrophy of kidney (terminal); E11.40 Type 2 diabetes mellitus with diabetic neuropathy, unspecified; Z79.4 Long term (current) use of insulin; I13.0 Hypertensive heart and chronic kidney disease with heart failure and stage 1 through stage 4 chronic kidney disease, or unspecified chronic kidney disease; E11.22 Type 2 diabetes mellitus with diabetic chronic kidney disease; N18.9 Chronic kidney disease, unspecified; I50.9 Heart failure, unspecified; Z79.01 Long term (current) use of anticoagulants; Z95.1 Presence of aortocoronary bypass graft; Z86.73 Personal history of transient ischemic attack (TIA), and cerebral infarction without residual deficits; Z87.891 Personal history of nicotine dependence; M79.604 Pain in right leg; M79.605 Pain in left leg | CPT/HCPCS: 99214 ==

== ENCOUNTER 2024-12-01 09:23 | Oncology outpatient (recurring) (ONCR) | payer OTHER, SELFPAY ==
--- NOTE | 2024-12-01 09:30 | USR_ITS ---
PROCEDURE INFORMATION: Exam: US Duplex Lower Extremity Veins, Bilateral Exam date and time: 12/01/2024 9:48 AM Age: 84 years old Clinical indication: Swelling (edema) of limb; Lower extremity, bilateral; Prior surgery; Surgery date: 6+ months; Surgery type: Cabg harvested from the right side; Additional info: Bilat leg pain TECHNIQUE: Imaging protocol: Real-time duplex ultrasound of the bilateral extremities with 2-D campbell scale, color Doppler flow and spectral waveform analysis including responses to compression and other maneuvers (when performed) with image documentation. Complete exam focused on the lower extremity veins. COMPARISON: No relevant prior studies available. FINDINGS: Right deep veins: Unremarkable. The common femoral, femoral, proximal profunda femoral and popliteal veins are patent without thrombus. Normal Doppler waveforms. Normal compressibility and/or augmentation response. Left deep veins: Unremarkable. The common femoral, femoral, proximal profunda femoral and popliteal veins are patent without thrombus. Normal Doppler waveforms. Normal compressibility and/or augmentation response. Reflux time in the left common femoral vein is 0.81 seconds. Superficial veins: Linear, echogenic material at the right saphenofemoral junction, likely reflecting sequelae of remote thrombus. Left saphenofemoral junction patent bilaterally without thrombus. The right greater saphenous vein measures approximately 9 mm at the saphenofemoral junction, approximately 18 mm from the skin surface, 6.7 mm just distal to the saphenofemoral junction, approximately 7.4 mm from the skin surface, 7 mm proximally, approximately 11.2 mm from the skin surface, 3.9 mm in the midportion, approximately 21.8 mm from the skin surface, and 5.4 mm distally, approximately 4.2 mm from the skin surface. The left greater saphenous vein measures approximately 8 mm at the saphenofemoral junction, approximately 22 mm from the skin surface, 7.3 mm just distal to the saphenofemoral junction, approximately 7.6 mm from the skin surface, with 5.7 mm proximally, approximately 6.8 mm from the skin surface, 3.5 mm in the midportion, approximately 13.1 mm from the skin surface, 2.9 mm distally, approximately 3.3 mm from the skin surface, and 4.3 mm just wvcna-shm-exed, approximately 16.2 mm from the skin surface. Reflux times are as follows on the right: Saphenofemoral junction is 2.15 seconds, greater saphenous vein just distal to the saphenofemoral junction is 2.81 seconds, proximal greater saphenous vein is 4.31 seconds, mid greater saphenous vein is 0.66 seconds, and distal greater saphenous vein is 2.5 seconds. Soft tissues: Diffuse subcutaneous edema. US/CV ernesto dup daniele [facility] [id number] IMPRESSION: 1. No sonographic evidence of deep venous thrombosis. 2. Linear, echogenic material at the right saphenofemoral junction, likely reflecting sequelae of remote thrombus. 3. Additional findings, as above.
== END 2024-12-11 23:59 | disposition home or self-care (01) ==
LOC: RAD 09:24 → ONCMED 12-04 09:38
PROVIDERS: PCP Family Medicine; Visit Provider Internal Medicine Cardiovascular Disease
DX: D69.6 Thrombocytopenia, unspecified (principal); N18.9 Chronic kidney disease, unspecified; D50.9 Iron deficiency anemia, unspecified; I25.2 Old myocardial infarction; I25.10 Atherosclerotic heart disease of native coronary artery without angina pectoris; I50.32 Chronic diastolic (congestive) heart failure; E11.9 Type 2 diabetes mellitus without complications; I82.403 Acute embolism and thrombosis of unspecified deep veins of lower extremity, bilateral; Z79.01 Long term (current) use of anticoagulants; Z79.899 Other long term (current) drug therapy; Z53.9 Procedure and treatment not carried out, unspecified reason; R06.02 Shortness of breath; G47.00 Insomnia, unspecified; I25.5 Ischemic cardiomyopathy; Z87.891 Personal history of nicotine dependence; M79.604 Pain in right leg; M79.605 Pain in left leg
CPT/HCPCS: 93970

== ENCOUNTER 2025-02-15 13:05 | Emergency (ER) | payer OTHER, SELFPAY ==
[2025-02-15 13:13] VITALS: BP 157/70; PULSE 60; RESP 18; TEMP 36.4; O2SAT 100; BMI 28.5
--- OUTSIDE RECORDS SUMMARY | 2025-02-15 13:14 | XMS_ITS | Patient Health Record ---
Author Organization [employer], [facility] Address [address] [place] [address] Care Team Providers Care Press Setup Operator Name Role Phone Nita Lemos Primary Care Provider Unavailab STEVE Lucas Unavailable [phone] Barrett Gramajo Unavailable [phone] Allergies Allergen (clinical drug ingredient) Drug/Non Drug Allergy documented on EMR Reaction Allergy Type Onset Date Status lorazepam Ativan Unknown Drug Allergy Active pregabalin Lyrica Unknown Drug Allergy Active Reason For Referral No Information Medications Medication SIG (Take, Route, Frequency, Duration) Notes Start Date End Date Status Ozempic Active Lantus 100 UNIT/ML as directed Subcutaneous Active Levothyroxine Sodium 75 MCG 1 tablet in the morning on an empty stomach Orally Once a day Active Gabapentin 300 MG 1 capsule Orally Onc e a day Active Crestor 5 MG 1 tablet Orally Once a day Active Protonix 40 MG 1 tablet 1/2 to 1 ho ur before morning meal Orally Once a day Active Allopurinol 300 MG 1 tablet Orally Once a day Active Eliquis 5 MG as directed Orally Active Lasix 20 MG 1 tablet Orally Once a day Active Problems Problem Type SNOMED Code ICD Code Onset Dates Problem Status W/U Status Risk Notes Problem Benign prostatic hyperplasia (787917242) BPH (benign prostatic hyperplasia) (N40.0) Active confirmed Vital Signs Heart Rate 57 /min 09/19/2024 Height-cm 182.88 cm 09/19/2024 Blood pressure diastolic 84 mm Hg 09/19/2024 Weight-kg 98.43 kg 09/19/2024 Height 72 in 09/19/2024 Blood pressure systolic 97 mm Hg 09/19/2024 Weight 217 lbs 09/19/2024 BMI 29.43 kg/m2 09/19/2024 Procedures Procedure Date Ordered Date Performed Result Body Sit e Bladder Scan 09/19/2024 N/A Encounters Encounter Location Date Provider Diagnosis [facility] [address] [place] [address] 09/19/2024 Barrett Gramajo BPH (benign prostati c hyperplasia) N40.0 and Urinary retention with incomplete bladder emptying R33.9 [facility] [address] [place] [address] 08/30/2024 STEVE PORTILLO Assessments Encounter Date Diagnosis (ICD Code) Assessment Notes Treatment Notes Treatment Clinical Notes Section Notes 09/19/2024 BPH (benign prostatic hyperplasia) (ICD-10 - N40.0) Discussed that patient is doing well from urological standpoint. Discussed that his 1 UTI a few months ago does not warrant further intervention at this time. He denies issues since. He did report that one day he went to the ER last month he had decreased urine output, but has been normal since. He is considerably emptying his bladder well. No need for further intervention at this time. Discussed on continuing f/u for close surveillance with UA recheck, however, patient deferred and will call back if needs any further concerns. Otherwise, patient will return care PRN. For now, and through shared decision making we are in agreement with no further workup or intervention at this time with care plan, aside from what was mentioned. Patient has no other voiced concerns or questions. Patient satisfied with plan. Will CC note back to PCP. 09/19/2024 Urinary retention with incomplete bladder emptying (ICD-10 - R33.9) Discussed that patient is doing well from urological standpoint. Discussed that his 1 UTI a few months ago does not warrant further intervention at this time. He denies issues since. He did report that one day he went to the ER last month he had decreased urine output, but has been normal since. He is considerably emptying his bladder well. No need for further intervention at this time. Discussed on continuing f/u for close surveillance with UA recheck, however, patient deferred and will call back if needs any further concerns. Otherwise, patient will return care PRN. For now, and through shared decision making we are in agreement with no further workup or intervention at this time with care plan, aside from what was mentioned. Patient has no other voiced concerns or questions. Patient satisfied with plan. Will CC note back to PCP. Plan Of Treatment Pending Test Test Name Order Date Bladder Scan 09/19/2024 Insurance Providers Payer Name Payer Address Payer Phone Subscriber Number Group Number Insured Name Patient Relationship to Insured Coverage Start Date Coverage End Date [employer] [address] [place], [place] [id number] Shaila Galvan Self - patient is the insured Medical (General) History Medical History History ICD Code arthritis diabetes heart disease low thyroid stroke abdominal / flank pain back pain ED incontinence waking 1-2 times a night to urinate Surgical History Surgery Date(Month/Year) double hernia gall bladder bypass 2002 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
--- OUTSIDE RECORDS SUMMARY | 2025-02-15 13:14 | XMS_ITS | Encounter Summary ---
Author Organization [facility] Address [address] [place] [address] Care Team Providers Care Navy Diver Name Role Phone Temo Diane MD Primary Care Provider [phone] Encounter Details Date Type Department Care Team (Late st Contact Info) Description 02/05/2005 Outpatient Historical [facility] [address] [place] [id number] GrabielPatrice tijerina MD [address] [place] [address] Social History Tobacco Use Types Packs/Day Years Used Date Smoking Tobacco: Never Assessed Sex and Gender Information Value Date Recorded Sex Assigned at Not on file Legal Sex Male 7:52 PM CDT Gender Identity Not on file Sexual Orientation Not on file documented as of this encounter Plan of Treatment Not on file documented as of this encounter Procedures Procedure Name Priority Date/Time Associated Diagnosis Comments HEPATITIS B SURFACE AB IGG Routine 02/05/2005 1:38 PM CDT RUBELLA IGG Routine 02/05/2005 1:38 PM CDT VARICELLA ZOSTER IGG Routine 02/05/2005 1:38 PM CDT documented in this encounter Results * VARICELLA ZOSTER IGG (02/05/2005 1:38 PM CDT) VZV IGG Sent to Reference Lab INTERFACE SYSTEM 02/05/2005 1:38 PM CDT us Patrice Spain MD CHEMISTRY ORDERABLES Final Re sult Performing Organization Address [facility] Phone Number INTERFACE SYSTEM Refer to clinic/hospital department * HEPATITIS B SURFACE AB IGG (02/05/2005 1:38 PM CDT) HEPATITIS B SURFACE AB Negative INTERFACE SYSTEM 02/05/2005 1:38 PM CDT us Patrice Spain MD CHEMISTRY ORDERABLES Final Re sult Performing Organization Address [facility] Phone Number INTERFACE SYSTEM Refer to clinic/hospital department * RUBELLA IGG (02/05/2005 1:38 PM CDT) RUBELLA IGG Immune Immune INTERFAC E SYSTEM 02/05/2005 1:38 PM CDT us Patrice Spain MD CHEMISTRY ORDERABLES Final Re sult Performing Organization Address [facility] Phone Number INTERFACE SYSTEM Refer to clinic/hospital department documented in this encounter Visit Diagnoses Not on filedocumented in this encounter Care Teams Navy Diver Relationship Specialty Start Date End Date Temo Diane MD [address] [place] [address] PCP - General Family Practice 07/06/14 documented as of this encounter
--- OUTSIDE RECORDS SUMMARY | 2025-02-15 13:14 | XMS_ITS | Clinical Summary ---
Author Organization [facility] Address [address] [place]: [place] [address] Care Team Providers Care Eyelet Riveter Name Role Phone Temo Diane MD Primary Care Provider [phone] Allergies Active Allergy Reactions Criticality Noted Date Comments Lorazepam Nausea and Vomiting Low 12/29/2023 Oxycodone Nausea and Vomiting Low 12/29/2023 Pregabalin Nausea and Vomiting Low 12/29/2023 Medications warfarin (COUMADIN) 5 mg tablet Take 5 mg by mouth daily. Active pantoprazole (PROTONIX) 20 mg Tablet, Delayed Release (E.C.) Take 20 mg by mouth daily before breakfast. Active lisinopriL (PRINIVIL) 20 mg tablet Take 20 mg by mouth daily before breakfast. Active furosemide (LASIX) 20 mg tablet Take 20 mg by mouth daily in the morning. Active SIMVASTATIN ORAL Take 20 mg by mouth daily at bedtime. Active METOPROLOL SUCCINATE ORAL Take 25 mg by mouth daily before breakfast. Active insulin detemir U-100 (LEVEMIR) 100 unit/mL pen syringe Inject 60 Units by subcutaneous injection 2 times daily. Active apixaban (Eliquis) 2.5 mg tablet Take 2.5 mg by mouth 2 times daily. Active Active Problems Problem Noted Date Diagnosed Date Laceration of digital nerve of finger 02/21/2014 Laceration of digital artery 02/21/2014 Laceration of hand, left, complicated 12/31/2013 Overview (10/10/2020): Thumb artery, nerve tendon laceration Middle finger ulnar nerve laceration, common digital artery laceration Ring finger radial and ulnar digital nerve laceration, 3rd common digital artery laceration, ulnar digital artery laceration Small finger radial and ulnar digital nerve laceration, ulnar digital artery laceration, flexor digitorum profundus and superficialis laceration SOB (shortness of breath) 12/31/2013 Pulmonary edema 12/31/2013 Fluid overload 12/31/2013 CHF exacerbation 12/31/2013 Encounters Date Type Department Care Team Description 12/27/2024 External Device Data ST[facility] ABSTRACTION Provider, Abstract 12/27/2024 External Device Data STL ABSTRACTION Provider, Abstract 12/27/2024 External Device Data STL ABSTRACTION Provider, Abstract 12/12/2024 External Device Data STL ABSTRACTION Provider, Abstract 11/29/2024 External Device Data STL ABSTRACTION Provider, Abstract 11/28/2024 External Device Data STL ABSTRACTION Provider, Abstract from Last 3 Months Immunizations Immunization Administration Dates Next Due Influenza Seasonal Unspecified Formulation IM ,03/26/2011 Family History Medical History Relation Name Comments Diabetes Brother Other Daughter LUPUS Respiratory Disease Father Healthy Mother Healthy Son 1 Healthy Son 2 Relation Name Status Comments Brother Alive Daughter Alive Father Mother Son 1 Alive Son 2 Alive Social History Tobacco Use Types Packs/Day Years Used Date Smoking Tobacco: Former Cigarettes Q uit: 12/29/1997 Smokeless Tobacco: Never Alcohol Use Standard Drinks/Week Comments No 0 (1 standard drink = 0.6 oz pur e alcohol) Feeling Safe Answer Date Recorded Are you in a relationship wi th someone who hurts you emotionally and/or physically? No 12/29/2023 Sex and Gender Information Value Date Recorded Sex Assigned at Not on file Legal Sex Male 12:28 AM SORTER PACKER Gender Identity Not on file Sexual Orientation Not on file Last Filed Vital Signs Vital Sign Reading Time Taken Comments Blood Pressure 171/64 12/29/2023 12:22 PM CDT Pulse 60 12/29/2023 12:22 PM CDT Temperature 36.1 C (97 F) 12/29/2023 12:22 PM CDT Respiratory Rate 16 12/29/2023 12:22 PM CDT Oxygen Saturation 99% 12/29/2023 12:22 PM CDT Inhaled Oxygen Concentration - - Weight 90.7 kg (200 lb) 12/29/2023 10:32 AM CDT Height 182.9 cm (6') 12/29/2023 10:32 AM CDT Body Mass Index 27.12 12/29/2023 10:32 AM CDT Plan of Treatment Health Maintenance Due Date Last Done Comments DIABETES ANNUAL FOOT EXAM 1960 DIABETES ANNUAL RETINAL EXAM 1960 DIABETES HBA1C Q 6 MONTHS 1960 DIABETES MICROALBUMIN ANNUAL SCREEN 1960 LDL CHOLESTEROL ANNUAL 1960 DTAP/TDAP/TD VACCINES (1 - Tdap) 1961 ZOSTER VACCINE (1 of 2) 1992 RSV VACCINE (60+ or ) (1 - 1-dose 75+ series) 2017 PNEUMOCOCCAL VACCINE 50+ YEA RS (2 of 2 - PCV) 04/08/2024 04/08/2023 INFLUENZA VACCINE (#1) 2025 3, 03/30/2022, 04/02/2021, Additional history exists Medical Devices Implanted Type Area Case Finisher Device Identifier Shelf Expiration Date Model / Serial / Lot Lens Iol Tecnis Eyhance 21.5 [id number] - [id number] Implanted:Qty: 1 on 12/29/2023 by Mikey Chavarria MD at [facility] Lens Left: Eye [employer] 07/01/2026 [id number] / [id number] / [place] [address] [place] [id number] [facility] MEDICARE HMO Advance Directives For more information, please contact: [phone] * Full Code (Latest Code Status on File) Date Activated Date Inactivated Comments 12/29/2023 11:04 AM 12/29/2023 2:37 PM Care Teams Eyelet Riveter Relationship Specialty Start Date End Date Temo Diane MD [address] [place] [address] PCP - General Family Practice 07/06/14
--- OUTSIDE RECORDS SUMMARY | 2025-02-15 13:14 | XMS_ITS | Clinical Summary ---
Author Organization [facility] Address [address] [facility] [address] [place] [address] Care Team Providers Care Sorter Pricer Name Role Phone Unavailable Primary Care Provider Unavailabl e Encounters Date Type Department Care Team Description 01/15/2025 Documentation Only [facility] [address] [place] [phone] Laurel Myrick MD 12/29/2024 Office Communication [facility] [address] [place] [phone] Laurel Myrick MD 12/19/2024 Orders Only [facility] [address] [place] [address] Chronic kidney disease, not otherwise specified 12/18/2024 Transcribe Orders [facility] [address] [place] [phone] Noah Contreras Chronic kidney disease, not otherwise specified (Primary Dx) from Last 3 Months Social History Tobacco Use Types Packs/Day Years Used Date Smoking Tobacco: Never Assessed Sex and Gender Information Value Date Recorded Sex Assigned at Not on file Legal Sex Male 4:51 PM EDT Gender Identity Not on file Sexual Orientation Not on file Plan of Treatment Health Maintenance Due Date Last Done Comments Pneumococcal Vaccine: 50+ Ye ars (1 of 2 - PCV) 1961 Influenza Vaccine (#1) 2025 Hepatitis B Vaccine Aged Out No longe r eligible based on patient's age to complete this topic
--- OUTSIDE RECORDS SUMMARY | 2025-02-15 13:14 | XMS_ITS | Encounter Summary ---
Author Organization [facility] Address [address] [place] [address] Phone Care Team Providers Care Casino Games Dealer Name Role Phone Unavailable Primary Care Provider Unavailabl e Encounter Details Date Type Department Care Team (Late st Contact Info) Description 12/19/[address] [facility] [address] [place] [address] Chronic kidney disease, not otherwise specified Social History Tobacco Use Types Packs/Day Years Used Date Smoking Tobacco: Never Assessed Sex and Gender Information Value Date Recorded Sex Assigned at Not on file Legal Sex Male 4:51 PM EDT Gender Identity Not on file Sexual Orientation Not on file documented as of this encounter Plan of Treatment Not on file documented as of this encounter Visit Diagnoses Diagnosis Chronic kidney disease, not otherwise specified documented in this encounter
--- OUTSIDE RECORDS SUMMARY | 2025-02-15 13:14 | XMS_ITS | Encounter Summary ---
Author Organization [facility] Address [address] [place] [address] Care Team Providers Care Edge Stitcher Name Role Phone Temo Diane MD Primary Care Provider [phone] Encounter Details Date Type Department Care Team (Latest Contact Info) Description 05/14/2011 Ancillary Orders [facility] Pre-Registration [place] CALL TO MAKE APPOINTMENT ONLY [address] [place] [address] Jay Goldsmith, DO [address] [place] [phone] Observation for other specified suspected conditions Social History Tobacco Use Types Packs/Day Years Used Date Smoking Tobacco: Never Assessed Sex and Gender Information Value Date Recorded Sex Assigned at Not on file Legal Sex Male 7:52 PM CDT Gender Identity Not on file Sexual Orientation Not on file documented as of this encounter Plan of Treatment Not on file documented as of this encounter Visit Diagnoses Diagnosis Observation for other specified suspected conditions documented in this encounter Care Teams Edge Stitcher Relationship Specialty Start Date End Date Temo Diane MD [address] [place] [address] PCP - General Family Practice 07/06/14 documented as of this encounter
--- OUTSIDE RECORDS SUMMARY | 2025-02-15 13:14 | XMS_ITS | Clinical Summary ---
Author Organization [facility] field Address [address] [place] [address] Phone Care Team Providers Care Nurse Private Duty Name Role Phone Temo Diane MD Primary Care Provider [phone] Allergies No known active allergies Medications furosemide (LASIX) 20 mg tablet Take 20 mg by mouth daily retail salesworker. Active warfarin (COUMADIN) 5 mg tablet Take 5 mg by mouth daily. Active lisinopril (PRINIVIL) 20 mg tablet Take 20 mg by mouth daily before breakfast. Active pantoprazole (PROTONIX) 20 mg Tablet, Delayed Release (E.C.) Take 20 mg by mouth daily before breakfast. Active metFORMIN (GLUCOPHAGE) 1,000 mg tablet Take 1,000 mg by mouth 2 times daily with meals. Active gabapentin (NEURONTIN) 300 mg capsule Take 2 Caps by mouth 3 times daily. 42 Cap 0 01/01/2014 Active METOPROLOL SUCCINATE ORAL Take 25 mg by mouth daily before breakfast. Active SIMVASTATIN ORALIndications: Laceration of hand, left, complicated, subsequent encounter Take 20 mg by mouth daily at bedtime. Active Active Problems Problem Noted Date Diagnosed Date Laceration of digital nerve of finger 02/21/2014 Laceration of digital artery 02/21/2014 Laceration of hand, left, complicated 12/31/2013 Overview (12/31/2013): Thumb artery, nerve tendon laceration Middle finger ulnar nerve laceration, common digital artery laceration Ring finger radial and ulnar digital nerve laceration, 3rd common digital artery laceration, ulnar digital artery laceration Small finger radial and ulnar digital nerve laceration, ulnar digital artery laceration, flexor digitorum profundus and superficialis laceration SOB (shortness of breath) 12/31/2013 Fluid overload 12/31/2013 CHF exacerbation 12/31/2013 Pulmonary edema 12/31/2013 Immunizations Immunization Administration Dates Next Due Influenza [...] Years Used Date Smoking Tobacco: Former Cigarettes 2 40 0 12/29/1957 - 12/29/1997 Smokeless Tobacco: Never Alcohol Use Standard Drinks/Week Comments No 0 (1 standard drink = 0.6 oz pur e alcohol) Sex and Gender Information Value Date Recorded Sex Assigned at Not on file Legal Sex Male 7:52 PM CDT Gender Identity Not on file Sexual Orientation Not on file Last Filed Vital Signs Vital Sign Reading Time Taken Comments Blood Pressure 96/60 10/17/2014 3:28 PM CDT Pulse 86 10/17/2014 3:28 PM CDT Temperature 36.9 C (98.5 F) 07/24/2014 9:00 AM CRIMINAL LEGAL ASSISTANT Respiratory Rate 16 10/09/2014 10:00 AM CDT Oxygen Saturation 92% 10/09/2014 10:00 AM CDT Inhaled Oxygen Concentration - - Weight 97.5 kg (215 lb) 10/17/2014 3:28 PM CDT Height 182.9 cm (6') 10/17/2014 3:28 PM CDT Body Mass Index 29.16 10/17/2014 3:28 PM CDT Plan of Treatment Health Maintenance Due Date Last Done Comments DTAP/TDAP/TD VACCINES (1 - Tdap) 1961 PNEUMOCOCCAL VACCINE 50+ YEA RS (1 of 2 - PCV) 1961 ZOSTER VACCINE (1 of 2) 1992 RSV VACCINE (60+ or ) (1 - 1-dose 75+ series) 2017 INFLUENZA VACCINE (#1) 2025 03/14/2013, [address] [place] [address] CARE IMPROVEMENT PLUS MCR Advance Directives For more information, please contact: [phone] * Full Code (Latest Code Status on File) Date Activated Date Inactivated Comments 12/30/2013 12:14 PM 01/02/2014 6:39 PM * Full Code Date Activated Date Inactivated Comments 12/30/2013 11:38 AM 12/30/2013 12:14 PM * Full Code Date Activated Date Inactivated Comments 12/30/2013 9:34 AM 12/30/2013 11:38 AM * Full Code Date Activated Date Inactivated Comments 12/29/2013 8:55 PM 12/30/2013 9:34 AM * Full Code Date Activated Date Inactivated Comments 12/29/2013 8:37 PM 12/29/2013 8:55 PM Care Teams Nurse Private Duty Relationship Specialty Start Date End Date Temo Diane MD [address] [place] [address] PCP - General Family Practice 07/06/14
--- OUTSIDE RECORDS SUMMARY | 2025-02-15 13:14 | XMS_ITS | Encounter Summary ---
Author Organization [facility], [facility] Address [address] [address] Phone Care Team Providers Care Caregivers Non Medical Name Role Phone Unavailable Primary Care Provider Unavailabl e Reason for Referral * Consultation (Routine) - Closed Specialty Diagnoses / Procedures Referred By Jeny dowd Referred To Contact Nephrology Diagnoses Chronic kidney disease, not otherwise specified Noah Contreras [address] [address] fax: Laurel Myrick MD [address] [address] Phone: tel: fax: Referral ID Status Reason Start Date Expiration Date V isits Requested Visits Authorized [id number] Closed Consult and Treat 12/18/2024 12/18/2025 1 1 Encounter Details Date Type Department Care Team (Late st Contact Info) Description 12/18/2024 Transcribe Orders [facility] [address] [address] Noah Contreras [address] [address] Chronic kidney disease, not otherwise specified (Primary Dx) Social History Tobacco Use Types Packs/Day Years Used Date Smoking Tobacco: Never Assessed Sex and Gender Information Value Date Recorded Sex Assigned at Not on file Legal Sex Male 4:51 PM EDT Gender Identity Not on file Sexual Orientation Not on file documented as of this encounter Plan of Treatment Scheduled Referrals Name Type Priority Associated Diagnoses Order Schedule Ambulatory referral to Nephrology Outpatient Referral Routine Chronic kidney disease, not otherwise specified Expected: 12/19/2024, Expires: 12/18/2025 documented as of this encounter Visit Diagnoses Diagnosis Chronic kidney disease, not otherwise specified- Primary documented in this encounter
--- NOTE | 2025-02-15 15:18 | W.ED.GENADLT ---
HPI - General Adult General: Chief complaint: General Medical Stated complaint: bruising, soreness, oozing, sob Time Seen by Provider: 02/15/25 13:26 Source: patient Mode of arrival: ambulatory Limitations: no limitations History of Present Illness: Patient is an 84-year-old male who presents to ED today with multiple complaints but mainly requesting a hemoglobin stating that he has noticed easy bruising. He states he has had a history of anemia in the past and states that he has been placed on iron and folic acid for this through his PCP at the [place]. He states he has also had a pruritic rash over the past 4 days or so. He has not tried anything [id number] to help with the itching. He has not been ill recently. No fevers. has also has concerns about a bruise to his right thigh that he sustained following a fall. Patient has been ambulatory without difficulty or assistance since the fall. They do feel like the bruise is slowly healing. He has a small shallow ulcer to his right lower leg that is chronic. He states he follows up with the vascular team in [place]. He states he is scheduled for some type of vascular procedure in one week with them. He has chronic edema/pain that is currently at baseline. Onset (ago): day(s) Severity: mild Relieving factors: none Exacerbating factors: none Associated symptoms: Reports rash; Deny chest pain, dyspnea, headache(s), malaise, nausea, palpitations, syncope or vomiting Treatments prior to arrival: none Related Data Home Medications ?Medication ?Instructions ?Recorded ?Confirmed pantoprazole 40 mg tablet,delayed 40 mg PO DAILY 10/03/23 11/20/24 release rosuvastatin 5 mg tablet 5 mg PO DAILY 10/03/23 11/20/24 allopurinol 300 mg tablet 300 mg PO DAILY 04/07/24 11/20/24 ferrous sulfate 325 mg (65 mg 325 mg PO DAILY 04/07/24 11/20/24 iron) tablet (Iron (ferrous sulfate)) folic acid 1 mg tablet 1 mg PO DAILY 04/07/24 11/20/24 insulin glargine 100 unit/mL (3 30 unit SUBCUT BID 09/20/24 11/20/24 mL) subcutaneous pen (Lantus Solostar U-100 Insulin) gabapentin 800 mg tablet 600 mg PO BID 11/20/24 insulin aspart U-100 100 unit/mL 60 unit SUBCUT BID 11/20/24 11/20/24 (3 mL) subcutaneous pen (Novolog FlexPen U-100 Insulin aspart) Previous Rx's ?Medication ?Instructions ?Recorded pen needle, diabetic 31 gauge x #100 ea 01/20/2310/27 (TechLITE Pen Needle) exenatide microspheres 2 mg/0.85 2 mg (0.85 mL) SUBCUT Q7D #10.2 mL 05/31/23 mL subcutaneous auto-injector (BydureParadinese) sacubitril 24 mg-valsartan 26 mg 1 tab PO BID #180 tabs 10/21/23 tablet (Entresto) furosemide 40 mg tablet 40 mg PO BID PRN Edema #60 tabs 12/06/23 levothyroxine 50 mcg tablet 50 mcg PO DAILY #90 tabs 12/10/23 apixaban 2.5 mg tablet 2.5 mg PO BID #180 tabs 06/05/24 hydrocortisone 1 % topical cream 1 applic topical BID PRN itching 02/15/25 #453.6 grams Allergies Allergy/AdvReac Type Severity Reaction Status Date / Time guaifenesin (From Mucinex) Allergy Unknown Unknown Verified 11/20/24 14:08 duloxetine (From Cymbalta) Allergy Unknown Verified 11/20/24 14:08 lorazepam (From Ativan) Allergy Unknown Verified 11/20/24 14:08 pregabalin (From Lyrica) Allergy Unknown Verified 11/20/24 14:08 Review of Systems Const: Denies: fever(s), chills, body aches, fatigue or malaise Eyes: Denies: change in vision, blurry vision, photophobia, floaters or seeing flashes Card: Denies: chest pain, palpitations, irregular heart rhythm, lightheadedness, syncope or dyspnea on exertion Resp: Denies: dyspnea, productive cough or pain on inspiration GI: Denies: abdominal pain, nausea, vomiting, heartburn or diarrhea : Denies: difficulty urinating or dysuria Musc: Reports: extremity swelling (chronic); Denies: neck pain, back pain or joint pain Skin/Breast: Reports: rash, pruritus and other (easy bruising ) Neuro: Denies: headache(s), numbness in extremities, weakness in extremities or sensory changes [facility] PFSH: Medical History Enrolled in chronic care management Ischemic cardiomyopathy Anticoagulation adequate with anticoagulant therapy Varicose veins of bilateral lower extremities with other complications Claudication Chronic gout History of stroke PAD (peripheral artery disease) CAD (coronary artery disease) Diabetic peripheral neuropathy Chronic pain disorder Insomnia GERD (gastroesophageal reflux disease) Hyperlipidemia Diabetes CHF (congestive heart failure) CKD (chronic kidney disease) Hypertension Pulmonary embolism Hernia Surgical History H/O heart bypass surgery Hx of cholecystectomy Family History Other Diabetes Hyperlipidemia Hypertension Social History Smoking and tobacco/nicotine status: former use of tobacco/nicotine (quit 2002) Alcohol intake: current Alcohol intake frequency: holidays/special occasions only Substance/Drug Use: never Household members: spouse Marital status: Current gender identity: Male Physical Exam Const: COMMON NORMALS: no acute distress, patient oriented x3, no limitations, alert and well nourished GENERAL APPEARANCE: cooperative ORIENTATION/CONSCIOUSNESS: Yes awake, Yes oriented to person, Yes oriented to place and Yes oriented to time HENMT: COMMON NORMALS: normocephalic and atraumatic HEAD & SCALP: normal to inspection, normocephalic and atraumatic Eye: COMMON NORMALS: no scleral icterus Resp: COMMON NORMALS: normal respiratory effort and clear to auscultation bilaterally AUSCULTATION: clear to auscultation bilaterally Cardio: COMMON NORMALS: regular rate and regular rhythm RATE: regular rate RHYTHM: regular rhythm GI: COMMON NORMALS: Normal to inspection, nondistended, normoactive bowel sounds present and Soft to palpation PALPATION: Yes Soft to palpation Extremity: NARRATIVE EXTREMITY EXAM: chronic bilateral peripheral vascular disease-chronic skin changes; feet are warm to the touch with normal cap refill; small shallow ulcer R lateral lower leg-non infected RIGHT LOWER EXTREMITY: Yes upper leg (healing ecchymosis R lateral thigh) Right upper leg: Yes neurovascular exam (normal) Neuro: COMMON NORMALS: patient oriented x3, moves all extremities, no focal motor deficits and no sensory deficits noted SENSORIUM/ORIENTATION: Yes alert, Yes oriented to person, Yes oriented to place and Yes oriented to time Skin: NARRATIVE SKIN EXAM: excoriated rash to arms and torso Course Vital Signs: Vital signs: Vital Signs Temperature 97.5 F L 02/15/25 13:13 Pulse Rate 60 02/15/25 13:13 Respiratory Rate 18 02/15/25 13:13 Blood Pressure 157/70 02/15/25 13:13 Pulse Oximetry 100 02/15/25 13:13 Oxygen Delivery Me thod Room Air 02/15/25 13:13 MDM - General Adult Medical Decision Making Patient here for multiple complaints one of which being easy bruising. He does have chronic thrombocytopenia present since 2019. He has seen our heme-onc team for this. Platelet count today is stable. His H&H are normal. Coags are within normal range. Will place him on topical steroids to help with his pruritic rash. He has upcoming vascular appointment in [place] regarding his chronic peripheral disease. He can also follow-up with his primary care provider. No life-threatening or emergent etiology suspected at this time. Medical Records I reviewed the patient's medical records. Lab Data I reviewed the patient's lab results. 02/15/25 15:22 02/15/25 15:22 Laboratory Results WBC 4.86 10^3/uL (3.29-11.43) 02/15/25 15:22 RBC 4.65 10^6/uL (3.85-5.65) 02/15/25 15:22 Hgb 13.90 g/dL (11.27-16.99) 02/15/25 15:22 Hct 45.3 % (37-53) 02/15/25 15:22 MCV 97.4 fl (82-101) 02/15/25 15:22 MCH 29.9 pg (27-33) 02/15/25 15:22 MCHC 30.7 g/dL (30-55) 02/15/25 15:22 RDW 16.6 % (12.1-15.1) H 02/15/25 15:22 Plt Count 86 10^3/cmm (157-399) L 02/15/25 15:22 MPV 11.1 fL (7.4-10.4) H 02/15/25 15:22 Neut % (Auto) 54.4 % 02/15/25 15:22 Lymph % (Auto) 23.0 % 02/15/25 15:22 Nance % (Auto) 14.2 % 02/15/25 15:22 Eos % (Auto) 7.4 % 02/15/25 15:22 Baso % (Auto) 0.8 % 02/15/25 15:22 Neut # (Auto) 2.64 10^3/uL (1.8-7.7) 02/15/25 15:22 Lymph # (Auto) 1.1 10^3/uL (0.8-4.8) 02/15/25 15:22 Nance # (Auto) 0.7 10^3/uL (0.2-0.9) 02/15/25 15:22 Eos # (Auto) 0.4 10^3/uL (0.0-0.8) 02/15/25 15:22 Baso # (Auto) 0.0 10^3/uL (0.0-0.1) 02/15/25 15:22 Nucleated RBC % (auto) 0 % 02/15/25 15:22 Nucleated RBCs # 0.0 /100WBC 02/15/25 15:22 PT 14.80 SECONDS (12.1-14.9) 02/15/25 15:22 INR 1.08 (0.8-1.2) 02/15/25 15:22 APTT 29.1 SECONDS (23.9-36.7) 02/15/25 15:22 Sodium 140 mmol/L (136-145) 02/15/25 15:22 Potassium 4.6 mmol/L (3.5-5.1) 02/15/25 15:22 Chloride 103 mmol/L (98-107) 02/15/25 15:22 Carbon Dioxide 26 mmol/L (22-29) 02/15/25 15:22 Anion Gap 15.6 (5-19) 02/15/25 15:22 BUN 35 mg/dL (8-23) H 02/15/25 15:22 Creatinine 1.9 mg/dL (0.7-1.2) H 02/15/25 15:22 GFR Calculation Not Reportable 02/15/25 15:22 Glucose 146 mg/dL (65-115) H 02/15/25 15:22 Calculated Osmolality 301 mOsm/kg (285-295) H 02/15/25 15:22 Calcium 9.4 mg/dL (8.5-10.5) 02/15/25 15:22 Total Bilirubin 0.9 mg/dL (0.15-1.2) 02/15/25 15:22 AST 13 U/L (0-40) 02/15/25 15:22 ALT 8 U/L (0-41) 02/15/25 15:22 Alkaline Phosphatase 157 U/L (40-130) H 02/15/25 15:22 Total Protein 6.9 g/dL (6.6-8.7) 02/15/25 15:22 Albumin 4.0 g/dL (3.5-5.2) 02/15/25 15:22 Globulin 2.9 g/dL (1.3-4.6) 02/15/25 15:22 No radiology studies performed this visit Discharge Plan Discharge Patient Disposition: Home Clinical Impression: Thrombocytopenia, Pruritic rash Condition: Stable Prescriptions: New hydrocortisone 1 % cream 1 applic topical BID PRN (Reason: itching) Qty: 453.6 0RF No Action Entresto 24-26 mg tablet 1 tab PO BID Qty: 180 3RF insulin aspart U-100 [Novolog FlexPen U-100 Insulin] 100 unit/mL (3 mL) insulin pen 60 unit SUBCUT BID Rx Instructions: sliding scale furosemide 40 mg tablet 40 mg PO BID PRN (Reason: Edema) Qty: 60 4RF gabapentin 800 mg tablet 600 mg PO BID insulin glargine [Lantus Solostar U-100 Insulin] 100 unit/mL (3 mL) insulin pen 30 unit SUBCUT BID Patient Comments: sliding scale (DME) pen needle, diabetic [TechLITE Pen Needle] 31 gauge x 5/16 needle See Rx Instructions .ROUTE .COMPLEX Qty: 100 3RF Dose Instruction: USE DIRECTED with levemir TWICE DAILY Rx Instructions: USE DIRECTED with levemir TWICE DAILY Bydureon BCise 2 mg/0.85 mL auto-injector 2 mg SUBCUT Q7D Qty: 10.2 4RF Rx Instructions: ON WEDNESDAY. Fax Script to [facility] [phone]. levothyroxine 50 mcg tablet 50 mcg PO DAILY Qty: 90 1RF apixaban 2.5 mg tablet 2.5 mg PO BID Qty: 180 3RF pantoprazole 40 mg tablet,delayed release (DR/EC) 40 mg PO DAILY rosuvastatin 5 mg tablet 5 mg PO DAILY allopurinol 300 mg tablet 300 mg PO DAILY ferrous sulfate [Iron (ferrous sulfate)] 325 mg (65 mg iron) Tablet 325 mg PO DAILY folic acid 1 mg Tablet 1 mg PO DAILY Discharge Orders: Discharge ED (Routine); Ordered 02/15/25 Ordered By: Emma Claudio Referrals: Shreya Wiggins MD [Primary Care Provider, [facility]] Patient Instructions: Patient Portal & Itzel Instructions Activity Restrictions/Additional Instructions: As we discussed, we will place a referral for dermatology for further follow-up regarding your itchy rash. If you are already an established patient, you may be able to just call for an appointment. We will try you on a topical steroid to see if this helps. Your hemoglobin today was normal. 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 You can continue to follow-up with our hematology team regarding this. Continue plan for your upcoming surgery with your vascular team regarding your peripheral vascular disease in your legs. Print Language: Telugu Coding Level of Care Code ED Bmet for Heather Garcia
[2025-02-15 15:31] LABS: Hematocrit 45.3 % (37-53); Hemoglobin 13.90 g/dL (11.27-16.99); Mean Corpuscular HGB Conc 30.7 g/dL (30-55); Mean Corpuscular Hemoglobin 29.9 pg (27-33); Mean Corpuscular Volume 97.4 fl (82-101); Nucleated Red Blood Cells % 0 %; Platelet Count 86 10^3/cmm (157-399); Red Blood Count 4.65 10^6/uL (3.85-5.65); White Blood Count 4.86 10^3/uL (3.29-11.43)
[2025-02-15 15:44] LABS: INR 1.08 (0.8-1.2); Prothrombin Time 14.80 SECONDS (12.1-14.9)
[2025-02-15 15:45] LABS: Partial Thromboplastin Time 29.1 SECONDS (23.9-36.7)
[2025-02-15 15:50] LABS: Alanine Aminotransferase 8 U/L (0-41); Albumin Level 4.0 g/dL (3.5-5.2); Alkaline Phosphatase 157 U/L (40-130); Anion Gap 15.6 (5-19); Aspartate Amino Transferase 13 U/L (0-40); Blood Urea Nitrogen 35 mg/dL (8-23); Calcium 9.4 mg/dL (8.5-10.5); Carbon Dioxide 26 mmol/L (22-29); Chloride 103 mmol/L (98-107); Creatinine Clr Calc Pharmacy 35.8945; Globulin 2.9 g/dL (1.3-4.6); Glucose 146 mg/dL (65-115); Osmolality Calculated 301 mOsm/kg (285-295); Potassium 4.6 mmol/L (3.5-5.1); Sodium 140 mmol/L (136-145); Total Protein 6.9 g/dL (6.6-8.7)
--- NOTE | 2025-02-15 16:02 | DCPLANNER ---
messaged derm for er f/u
== END 2025-02-15 16:57 | disposition home or self-care (01) ==
PROVIDERS: Emergency Medicine; Emergency Provider Physician Assistant; PCP Family Medicine
DX: D69.6 Thrombocytopenia, unspecified (principal); L29.9 Pruritus, unspecified; Z79.4 Long term (current) use of insulin; Z87.891 Personal history of nicotine dependence; E78.5 Hyperlipidemia, unspecified; I25.10 Atherosclerotic heart disease of native coronary artery without angina pectoris; E11.22 Type 2 diabetes mellitus with diabetic chronic kidney disease; I13.0 Hypertensive heart and chronic kidney disease with heart failure and stage 1 through stage 4 chronic kidney disease, or unspecified chronic kidney disease; N18.9 Chronic kidney disease, unspecified; I50.9 Heart failure, unspecified
CPT/HCPCS: 36415; 80053; 85025; 85610; 85730; 99283

== ENCOUNTER 2025-03-02 20:26 | Emergency (ER) | payer OTHER, SELFPAY ==
[2025-03-02 20:35] VITALS: BP 148/68; PULSE 82; RESP 20; TEMP 36.4; O2SAT 97; BMI 30.3
--- OUTSIDE RECORDS SUMMARY | 2025-03-02 20:35 | XMS_ITS | Encounter Summary ---
Author Organization [facility] Address [address] [address] Phone Care Team Providers Care Developing Machine Operator Name Role Phone Unavailable Primary Care Provider Unavailabl e Reason for Referral * Consultation (Routine) - Closed Specialty Diagnoses / Procedures Referred By Jeny dodw Referred To Contact Nephrology Diagnoses Chronic kidney disease, not otherwise specified Noah Contreras [address] [address] fax: Laurel Myrick MD [address] [address] Phone: tel: fax: Referral ID Status Reason Start Date Expiration Date V isits Requested Visits Authorized [id number] Closed Consult and Treat 12/18/2024 12/18/2025 1 1 Encounter Details Date Type Department Care Team (Late st Contact Info) Description 12/18/2024 Transcribe Orders [facility] [address] [address] Noah Contreras [address] [address] Chronic kidney disease, not otherwise [...]
--- OUTSIDE RECORDS SUMMARY | 2025-03-02 20:36 | XMS_ITS | Clinical Summary ---
Author Organization [facility] field Address [address] [place] [address] Phone Care Team Providers Care Lead Caster Helper Name Role Phone Temo Diane MD Primary Care Provider [phone] Allergies No known active allergies Medications furosemide (LASIX) 20 mg tablet Take 20 mg by mouth daily feather maker. 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
--- OUTSIDE RECORDS SUMMARY | 2025-03-02 20:36 | XMS_ITS | Encounter Summary ---
Author Organization [facility] Address [address] [place] [address] Care Team Providers Care Dental Aide Name Role Phone Temo Diane MD Primary Care Provider [phone] Encounter Details Date Type Department Care Team (Late st Contact Info) Description 02/05/2005 Outpatient Historical [facility] [address] [place] [id number] GrabielPatrice tijerina MD [address] [place] [address] Social History Tobacco Use Types [...] ORDERABLES Final Re sult Performing Organization Address [facility] Phone Number INTERFACE SYSTEM Refer to clinic/hospital department * HEPATITIS B SURFACE AB IGG (02/05/2005 1:38 PM CDT) HEPATITIS B SURFACE AB Negative INTERFACE SYSTEM 02/05/2005 1:38 PM CDT us Patrice Spain MD CHEMISTRY ORDERABLES Final Re sult Performing Organization Address [facility] Phone Number INTERFACE SYSTEM Refer to clinic/hospital department * RUBELLA IGG (02/05/2005 1:38 PM CDT) RUBELLA IGG Immune Immune INTERFAC E SYSTEM 02/05/2005 1:38 PM CDT us Patrice Spain MD CHEMISTRY ORDERABLES Final Re sult Performing Organization Address [facility] Phone Number INTERFACE SYSTEM Refer to clinic/hospital department documented in this encounter Visit Diagnoses Not on filedocumented in this encounter Care Teams Dental Aide Relationship Specialty Start Date End Date Temo Diane MD [address] [place] [address] PCP - General Family Practice 07/06/14 documented as of this encounter
--- OUTSIDE RECORDS SUMMARY | 2025-03-02 20:36 | XMS_ITS | Clinical Summary ---
Author Organization [facility] Address [address] [address] Care Team Providers Care Public Housing Manager Name Role Phone Unavailable Primary Care Provider Unavailabl e Encounters Date Type Department Care Team Description 01/15/2025 Documentation Only [facility], [facility] [address] [place] [phone] Laurel Myrick MD 12/29/2024 Office Communication [facility], [facility] [address] [place] [phone] Laurel Myrick MD 12/19/2024 Orders Only [facility], [facility] [address] [place] [address] Chronic kidney disease, not otherwise specified 12/18/2024 Transcribe Orders [facility], [facility] [address] [place] [phone] Noah Contreras Chronic kidney disease, not otherwise [...]
--- OUTSIDE RECORDS SUMMARY | 2025-03-02 20:36 | XMS_ITS | Clinical Summary ---
Author Organization [facility] Address [address] 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 07/01/2026 [id number] / [id number] / Insurance [facility] MEDICARE HMO Advance Directives For more information, please contact: [phone] * Full Code (Latest Code Status on File) Date Activated Date Inactivated Comments 12/29/2023 11:04 AM 12/29/2023 2:37 PM Care Teams Casino Host Relationship Specialty Start Date End Date Temo Diane MD [address] [place] [address] PCP - General Family Practice 07/06/14
--- OUTSIDE RECORDS SUMMARY | 2025-03-02 20:36 | XMS_ITS | Encounter Summary ---
Author Organization [facility] Address [address] [place] [address] Care Team Providers Care Senior Net Architect Name Role Phone Temo Diane MD Primary Care Provider [phone] Encounter Details Date Type Department Care Team (Latest Contact Info) Description 05/14/2011 Ancillary Orders [facility] Pre-Registration [place] CALL TO MAKE APPOINTMENT ONLY [address] [place] [address] Jay Goldsmith, DO [address] [place] [phone] Observation for other specified suspected conditions Social [...] conditions documented in this encounter Care Teams Senior Net Architect Relationship Specialty Start Date End Date Temo Diane MD [address] [place] [address] PCP - General Family Practice 07/06/14 documented as of this encounter
--- OUTSIDE RECORDS SUMMARY | 2025-03-02 20:36 | XMS_ITS | Encounter Summary ---
Author Organization [facility], [facility] Address [address] [place] [address] Phone Care Team Providers Care Note Specialist Name Role Phone Unavailable Primary Care Provider Unavailabl e Encounter Details Date Type Department Care Team (Late st Contact Info) Description 12/19/2024 Orders Only [facility] [address] [place] [address] Chronic kidney disease, not otherwise [...]
--- NOTE | 2025-03-02 20:50 | XRR_ITS ---
PROCEDURE INFORMATION: Exam: XR Chest Exam date and time: 03/02/2025 8:52 PM Age: 84 years old Clinical indication: Shortness of breath; Prior surgery; Surgery date: 6+ months; Surgery type: Cabg. Gb; General weakness with SOB. TECHNIQUE: Imaging protocol: Radiologic exam of the chest. Views: 1 view. COMPARISON: CR XR chest 1V portable [id number] 08/26/2024 9:24 PM FINDINGS: Tubes, catheters and devices: Anterior chest surgery with sternal wires and mediastinal clips. Lungs: Hazy retrocardiac opacity which is nonspecific but can be seen in pneumonia. Pleural spaces: Unremarkable. No pleural effusion. No pneumothorax. Heart/Mediastinum: Cardiomegaly. Bones/joints: Unremarkable. XR/XR chest 1V portable [id number] IMPRESSION: Hazy retrocardiac opacity which is nonspecific but can be seen in pneumonia.
--- NOTE | 2025-03-02 20:50 | W.ED.WEAKNES ---
HPI - Weakness General: Chief complaint: Weakness Stated complaint: WEAKNESS Time Seen by Provider: 03/02/25 20:29 History of Present Illness: Patient is a 4-year-old gentleman that presents ED after having bug bites, and noted confusion. This has happened in the past when he has had UTI. Patient mainly complains of itching. He states he is not confused. Associated symptoms: Denies chest pain, chills, dysuria, fever(s), headache(s), nausea, syncope or vomiting Related Data Home Medications ?Medication ?Instructions ?Recorded ?Confirmed pantoprazole 40 mg tablet,delayed 40 mg PO DAILY 10/03/23 02/15/25 release rosuvastatin 5 mg tablet 5 mg PO DAILY 10/03/23 02/15/25 allopurinol 300 mg tablet 300 mg PO DAILY 04/07/24 02/15/25 ferrous sulfate 325 mg (65 mg 325 mg PO DAILY 04/07/24 02/15/25 iron) tablet (Iron (ferrous sulfate)) folic acid 1 mg tablet 1 mg PO DAILY 04/07/24 02/15/25 insulin glargine 100 unit/mL (3 30 unit SUBCUT BID 09/20/24 02/15/25 mL) subcutaneous pen (Lantus Solostar U-100 Insulin) apixaban 2.5 mg tablet (Eliquis) 2.5 mg PO BID 02/15/25 02/15/25 gabapentin 300 mg capsule 300 mg PO BID 02/15/25 02/15/25 levothyroxine 75 mcg tablet 75 mcg PO QAM 02/15/25 02/15/25 Previous Rx's ?Medication ?Instructions ?Recorded pen needle, diabetic 31 gauge x #100 ea 01/20/23 5/16 (TechLITE Pen Needle) sacubitril 24 mg-valsartan 26 mg 1 tab PO BID #180 tabs 10/21/23 tablet (Entresto) furosemide 40 mg tablet 40 mg PO BID PRN Edema #60 tabs 12/06/23 hydrocortisone 1 % topical cream 1 applic topical BID PRN itching 02/15/25 #453.6 grams clobetasol 0.05 % topical cream 1 applic topical BID 1 week #30 03/02/25 grams Allergies Allergy/AdvReac Type Severity Reaction Status Date / Time guaifenesin (From Mucinex) Allergy Unknown Unknown Verified 11/20/24 14:08 duloxetine (From Cymbalta) Allergy Unknown Verified 11/20/24 14:08 lorazepam (From Ativan) Allergy Unknown Verified 11/20/24 14:08 pregabalin (From Lyrica) Allergy Unknown Verified 11/20/24 14:08 Review of Systems Const: Denies: fever(s), chills, body aches, fatigue or malaise Eyes: Denies: change in vision, blurry vision, photophobia, floaters or seeing flashes Card: Denies: chest pain, palpitations, irregular heart rhythm, lightheadedness, syncope or dyspnea on exertion Resp: Denies: dyspnea, productive cough or pain on inspiration GI: Denies: abdominal pain, nausea, vomiting, heartburn or diarrhea : Denies: difficulty urinating or dysuria Musc: Reports: extremity swelling (chronic); Denies: neck pain, back pain or joint pain Skin/Breast: Reports: rash, pruritus and other (easy bruising ) Neuro: Denies: headache(s), numbness in extremities, weakness in extremities or sensory changes Psych: Denies: anxiety or depression PFSH ED PFSH: Medical History (Updated 03/02/25 @ 23:49 by MIKO Grimes) Enrolled in chronic care management Ischemic cardiomyopathy Anticoagulation adequate with anticoagulant therapy Varicose veins of bilateral lower extremities with other complications Claudication Chronic gout History of stroke PAD (peripheral artery disease) CAD (coronary artery disease) Diabetic peripheral neuropathy Chronic pain disorder Insomnia GERD (gastroesophageal reflux disease) Hyperlipidemia Diabetes CHF (congestive heart failure) CKD (chronic kidney disease) Hypertension Pulmonary embolism Hernia Surgical History H/O heart bypass surgery Hx of cholecystectomy Family History Other Diabetes Hyperlipidemia Hypertension Social History Smoking and tobacco/nicotine status: former use of tobacco/nicotine (quit 2002) Alcohol intake: current Alcohol intake frequency: holidays/special occasions only Substance/Drug Use: never Household members: spouse Marital status: Current gender identity: Male Physical Exam Const: COMMON NORMALS: no acute distress, patient oriented x3, no limitations, alert and well nourished GENERAL APPEARANCE: cooperative ORIENTATION/CONSCIOUSNESS: Yes awake, Yes oriented to person, Yes oriented to place and Yes oriented to time HENMT: COMMON NORMALS: normocephalic and atraumatic HEAD & SCALP: normal to inspection, normocephalic and atraumatic Eye: COMMON NORMALS: no scleral icterus Neck/C-Spine: COMMON NORMALS: full ROM and no lymphadenopathy Lymph: LYMPHATIC: no lymphadenopathy noted Resp: COMMON NORMALS: normal respiratory effort and clear to auscultation bilaterally AUSCULTATION: clear to auscultation bilaterally Cardio: COMMON NORMALS: regular rate and regular rhythm RATE: regular rate RHYTHM: regular rhythm GI: COMMON NORMALS: Normal to inspection, nondistended, normoactive bowel sounds present and Soft to palpation PALPATION: Yes Soft to palpation : COMMON NORMALS: Yes no CVA tenderness BLADDER/KIDNEY EXAM: Yes no CVA tenderness Back/Pelvis: COMMON NORMALS: no CVA tenderness Extremity: RIGHT LOWER EXTREMITY: Yes upper leg (healing ecchymosis R lateral thigh) Right upper leg: Yes neurovascular exam (normal) Neuro: COMMON NORMALS: patient oriented x3, moves all extremities, no focal motor deficits and no sensory deficits noted SENSORIUM/ORIENTATION: Yes alert, Yes oriented to person, Yes oriented to place and Yes oriented to time Skin: NARRATIVE SKIN EXAM: excoriated rash to arms and torso Course Reevaluation(s): Reevaluation #1: states his confusion has improved. Urinalysis is negative. Patient states compliance to all of his medications. Will check EKG noting irregularity on monitor. He is on Eliquis, it is a controlled rate. Vital Signs: Vital signs: Vital Signs Temperature 97.5 F L 03/02/25 20:35 Pulse Rate 73 03/03/25 00:07 Respiratory Rate 22 H 03/03/25 00:07 Blood Pressure 165/75 03/03/25 00:07 Pulse Oximetry 94 03/03/25 00:07 Oxygen Delivery Me thod Room Air 03/02/25 22:00 MDM - Weakness Medical Decision Making Patient is a 84-year-old gentleman that came in initially with confusion. No additional findings were noted. He did have excoriations to his arm. He is given dexamethasone x 1. Clobetasol was sent to the pharmacy. Medical Records I reviewed the patient's medical records. Lab Data I reviewed the patient's lab results. 03/02/25 20:05 03/02/25 20:05 Radiology Impressions Chest X-Ray 03/02/25 20:50 IMPRESSION: Hazy retrocardiac opacity which is nonspecific but can be seen in pneumonia. Head CT 03/02/25 22:36 IMPRESSION: No acute intracranial abnormality. Chronic findings as above. Laboratory Results WBC 5.35 10^3/uL (3.29-11.43) 03/02/25 20:05 RBC 5.09 10^6/uL (3.85-5.65) 03/02/25 20:05 Hgb 14.90 g/dL (11.27-16.99) 03/02/25 20:05 Hct 48.4 % (37-53) 03/02/25 20:05 MCV 95.1 fl (82-101) 03/02/25 20:05 MCH 29.3 pg (27-33) 03/02/25 20:05 MCHC 30.8 g/dL (30-55) 03/02/25 20:05 RDW 17.2 % (12.1-15.1) H 03/02/25 20:05 Plt Count 127 10^3/cmm (157-399) L 03/02/25 20:05 MPV 10.4 fL (7.4-10.4) 03/02/25 20:05 Neut % (Auto) 60.6 % 03/02/25 20:05 Lymph % (Auto) 15.5 % 03/02/25 20:05 [place] % (Auto) 8.6 % 03/02/25 20:05 Eos % (Auto) 14.2 % 03/02/25 20:05 Baso % (Auto) 0.9 % 03/02/25 20:05 Neut # (Auto) 3.24 10^3/uL (1.8-7.7) 03/02/25 20:05 Lymph # (Auto) 0.8 10^3/uL (0.8-4.8) 03/02/25 20:05 [place] # (Auto) 0.5 10^3/uL (0.2-0.9) 03/02/25 20:05 Eos # (Auto) 0.8 10^3/uL (0.0-0.8) 03/02/25 20:05 Baso # (Auto) 0.1 10^3/uL (0.0-0.1) 03/02/25 20:05 Nucleated RBC % (auto) 0 % 03/02/25 20:05 Nucleated RBCs # 0.0 /100WBC 03/02/25 20:05 Specimen Type Venous 03/02/25 23:01 Sample Site Vein 03/02/25 23:01 Levi Test N/a 03/02/25 23:01 VBG pH 7.39 (7.32-7.42) 03/02/25 23:01 VBG pCO2 42.9 mmHg (41-51) 03/02/25 23:01 VBG pO2 24.6 mmHg (25-40) L 03/02/25 23:01 VBG HCO3 25.8 mmol/L (24-28) 03/02/25 23:01 VBG Base Excess 0.4 mmol/L (-3.0-3.0) 03/02/25 23:01 VBG Hematocrit 48.0 % (42-52) 03/02/25 23:01 Game Designer ID Bd 03/02/25 23:01 Sodium 140 mmol/L (136-145) 03/02/25 20:05 Potassium 4.6 mmol/L (3.5-5.1) 03/02/25 20:05 Chloride 103 mmol/L (98-107) 03/02/25 20:05 Carbon Dioxide 23 mmol/L (22-29) 03/02/25 20:05 Anion Gap 18.6 (5-19) 03/02/25 20:05 BUN 37 mg/dL (8-23) H 03/02/25 20:05 Creatinine 1.7 mg/dL (0.7-1.2) H 03/02/25 20:05 GFR Calculation Not Reportable 03/02/25 20:05 Glucose 176 mg/dL (65-115) H 03/02/25 20:05 Calculated Osmolality 303 mOsm/kg (285-295) H 03/02/25 20:05 Lactic Acid 1.7 mmol/L (0.5-2.2) 03/02/25 20:05 Calcium 9.6 mg/dL (8.5-10.5) 03/02/25 20:05 Total Bilirubin 0.9 mg/dL (0.15-1.2) 03/02/25 20:05 AST 20 U/L (0-40) 03/02/25 20:05 ALT 10 U/L (0-41) 03/02/25 20:05 Alkaline Phosphatase 161 U/L (40-130) H 03/02/25 20:05 Ammonia 35 umol/L (16-60) 03/02/25 23:01 Total Protein 7.0 g/dL (6.6-8.7) 03/02/25 20:05 Albumin 4.1 g/dL (3.5-5.2) 03/02/25 20:05 Globulin 2.9 g/dL (1.3-4.6) 03/02/25 20:05 Procalcitonin 0.13 ng/mL (0-0.5) 03/02/25 20:05 Urine Color Dark yellow (Yellow) A 03/02/25 21:30 Urine Appearance Clear (CLEAR) 03/02/25 21:30 Urine pH 5.5 (5-7) 03/02/25 21:30 Ur Specific [place] 1.020 (1.005-1.030) 03/02/25 21:30 Urine Protein 2+ (Negative) A 03/02/25 21: Urine Glucose (UA) Negative (Normal) 03/02/25 21:30 Urine Ketones Trace (Negative) 03/02/25 21:30 Urine Blood Negative (Negative) 03/02/25 21:30 Urine Nitrate Negative (Negative) 03/02/25 21: Urine Bilirubin Negative (Negative) 03/02/25 21:30 Urine Urobilinogen 1.0 mg/dL (Negative) 03/02/25 21:30 Ur Leukocyte Esterase Negative (Negative) 03/02/25 21:30 Urine RBC 0-2 /hpf (0-2) 03/02/25 21:30 Urine WBC 0-5 /hpf (0-5) 03/02/25 21:30 Ur Squamous Epith Cells 0-5 /hpf (0-5) 03/02/25 21:30 Amorphous Sediment Not Reportable 03/02/25 21:30 Urine Bacteria None seen /hpf (NONE) 03/02/25 21: Hyaline Casts 5.77 /lpf 03/02/25 21:30 All radiology interpretation(s) finalized by discharge EKG Data EKG 1: Interpretation: Atrial fibrillation, PVCs, QTc 506, no ST segment elevation Discharge Plan Discharge Patient Disposition: Home Clinical Impression: Metabolic encephalopathy Condition: Stable Prescriptions: New clobetasol 0.05 % cream 1 applic topical BID 7 Days Qty: 30 0RF No Action Entresto 24-26 mg tablet 1 tab PO BID Qty: 180 3RF furosemide 40 mg tablet 40 mg PO BID PRN (Reason: Edema) Qty: 60 4RF insulin glargine [Lantus Solostar U-100 Insulin] 100 unit/mL (3 mL) insulin pen 30 unit SUBCUT BID Patient Comments: sliding scale (DME) pen needle, diabetic [TechLITE Pen Needle] 31 gauge x 5/16 needle See Rx Instructions .ROUTE .COMPLEX Qty: 100 3RF Dose Instruction: USE DIRECTED with levemir TWICE DAILY Rx Instructions: USE DIRECTED with levemir TWICE DAILY pantoprazole 40 mg tablet,delayed release (DR/EC) 40 mg PO DAILY rosuvastatin 5 mg tablet 5 mg PO DAILY allopurinol 300 mg tablet 300 mg PO DAILY ferrous sulfate [Iron (ferrous sulfate)] 325 mg (65 mg iron) Tablet 325 mg PO DAILY folic acid 1 mg Tablet 1 mg PO DAILY hydrocortisone 1 % cream 1 applic topical BID PRN (Reason: itching) Qty: 453.6 0RF levothyroxine 75 mcg tablet 75 mcg PO QAM gabapentin 300 mg Capsule 300 mg PO BID Eliquis 2.5 mg tablet 2.5 mg PO BID Discharge Orders: Discharge ED (Routine); Ordered 03/02/25 Ordered By: Sofia Knowles Referrals: Shreya Wiggins MD [Primary Care Provider, Family Practice] Discharge Diet: Usual diet Discharge Activity: Resume usual activity Patient Instructions: A-fib (Atrial Fibrillation) (ED), Patient Portal & [facility]zel Instructions Activity Restrictions/Additional Instructions: -Continue take your blood thinner as directed -Return if you do have increasing confusion -Follow-up with your primary care physician Print Language: Tamazight Coding Level of Care Code ED Family Medicine Resident for Heather Garcia
[2025-03-02 21:15] VITALS: PULSE 86; O2SAT 97
[2025-03-02 21:18] LABS: Hematocrit 48.4 % (37-53); Hemoglobin 14.90 g/dL (11.27-16.99); Mean Corpuscular HGB Conc 30.8 g/dL (30-55); Mean Corpuscular Hemoglobin 29.3 pg (27-33); Mean Corpuscular Volume 95.1 fl (82-101); Nucleated Red Blood Cells % 0 %; Platelet Count 127 10^3/cmm (157-399); Red Blood Count 5.09 10^6/uL (3.85-5.65); White Blood Count 5.35 10^3/uL (3.29-11.43)
[2025-03-02 21:30] VITALS: BP 148/71; PULSE 91; O2SAT 97
[2025-03-02 21:39] LABS: Glucose Urine UA Negative (Normal); Nitrate Urine Negative (Negative); Specific Gravity, Urine 1.020 (1.005-1.030)
[2025-03-02 21:41] LABS: Add Urine Microscopic? YES
[2025-03-02 21:44] LABS: Alanine Aminotransferase 10 U/L (0-41); Albumin Level 4.1 g/dL (3.5-5.2); Alkaline Phosphatase 161 U/L (40-130); Anion Gap 18.6 (5-19); Aspartate Amino Transferase 20 U/L (0-40); Blood Urea Nitrogen 37 mg/dL (8-23); Calcium 9.6 mg/dL (8.5-10.5); Carbon Dioxide 23 mmol/L (22-29); Chloride 103 mmol/L (98-107); Globulin 2.9 g/dL (1.3-4.6); Glucose 176 mg/dL (65-115); Osmolality Calculated 303 mOsm/kg (285-295); Potassium 4.6 mmol/L (3.5-5.1); Sodium 140 mmol/L (136-145); Total Protein 7.0 g/dL (6.6-8.7)
[2025-03-02 21:45] LABS: Lactic Sepsis W/Reflex 1.7 mmol/L (0.5-2.2)
[2025-03-02 21:48] LABS: Creatinine Clr Calc Pharmacy 41.2782
[2025-03-02 21:51] LABS: Procalcitonin 0.13 ng/mL (0-0.5)
[2025-03-02 22:00] VITALS: BP 148/67; PULSE 78; O2SAT 94
--- NOTE | 2025-03-02 22:36 | CTR_ITS ---
PROCEDURE INFORMATION: Exam: CT Head Without Contrast Exam date and time: 03/02/2025 10:44 PM Age: 84 years old Clinical indication: Altered mental status/memory loss and other: General weakness; General weakness with confusion; Additional info: Confusion, metabolic encephalopathy TECHNIQUE: Imaging protocol: Computed tomography of the head without contrast. Radiation optimization: All CT scans at this facility use at least one of these dose optimization techniques: automated exposure control; mA and/or kV adjustment per patient size (includes targeted exams where dose is matched to clinical indication); or iterative reconstruction. COMPARISON: CT head thrombolytic [id number] 10/03/2023 3:38 AM RADIATION DOSE METRICS: Total DLP (mGy-cm): 1019.45 FINDINGS: Brain: Encephalomalacia changes in the left frontal lobe and anterior left temporal lobe similar to prior CT head 10/03/2023. Microangiopathic chronic ischemic changes similar to prior. Age-appropriate global cortical volume loss with unchanged size of the ventricular system. Cerebral ventricles: See Brain finding. Paranasal sinuses: Visualized sinuses are unremarkable. No fluid levels. Mastoid air cells: Visualized mastoid air cells are well aerated. Orbital cavities: No acute intraorbital abnormality. No hemorrhage, mass effect, midline shift or extra-axial collection. Bones: Unremarkable. No acute fracture. Soft tissues: Unremarkable. CT/CT head wo con* [id number] IMPRESSION: No acute intracranial abnormality. Chronic findings as above.
--- NOTE | 2025-03-02 22:38 | ECG_ITS ---
[facility]: 2025[facility]02 Pat Name: Shaila Galvan Department: Room: Gender: Male [employer]: : 1940 Requested By: Sofia Knowles Order Number: [id number] Amina MD: Owen Rowe M.D. Measurements Intervals [place] Rate: 64 P: 0 CO: 0 QRS: -70 QRSD: 152 T: 124 QT: 497 QTc: 514 Interpretive Statements ATRIAL FIBRILLATION INTRAVENTRICULAR CONDUCTION DELAY [130+ ms QRS DURATION] ANTERIOR MYOCARDIAL INFARCTION , OF INDETERMINATE AGE [40+ ms Q WAVE AND/OR ST/T ABNORMALITY IN V3/V4] INFERIOR MYOCARDIAL INFARCTION , OF INDETERMINATE AGE [40+ ms Q WAVE AND/OR ST/T ABNORMALITY IN II/aVF] Compared to ECG 08/26/2024 21:03:54 Myocardial infarct finding now present Ventricular premature complex(es) no longer present Aberrant conduction of supraventricular beat(s) no longer present Left-axis deviation no longer present Electronically Signed On 03-03-2025 13:03:21 CDT by Owen Rowe M.D. [email or web address]
[2025-03-02 23:06] LABS: Base Excess VBG 0.4 mmol/L (-3.0-3.0); Blood Gas Operator Identificat BD; Blood Gas Sample Site VEIN; Blood Gas Sample Type Venous; HCO3 VBG 25.8 mmol/L (24-28); PCO2 VBG 42.9 mmHg (41-51); PO2 VBG 24.6 mmHg (25-40); Venous Blood Gas Hematocrit 48.0 % (42-52); pH VBG 7.39 (7.32-7.42)
[2025-03-02 23:28] LABS: Ammonia 35 umol/L (16-60)
[2025-03-03 00:07] VITALS: BP 165/75; PULSE 73; RESP 22; O2SAT 94
== END 2025-03-03 00:08 | disposition home or self-care (01) ==
PROVIDERS: Emergency Provider Physician Assistant; PCP Family Medicine
DX: G93.41 Metabolic encephalopathy (principal); Z79.01 Long term (current) use of anticoagulants; Z79.4 Long term (current) use of insulin; Z87.891 Personal history of nicotine dependence; E78.5 Hyperlipidemia, unspecified; I25.10 Atherosclerotic heart disease of native coronary artery without angina pectoris; E11.22 Type 2 diabetes mellitus with diabetic chronic kidney disease; I13.0 Hypertensive heart and chronic kidney disease with heart failure and stage 1 through stage 4 chronic kidney disease, or unspecified chronic kidney disease; N18.9 Chronic kidney disease, unspecified; I50.9 Heart failure, unspecified
CPT/HCPCS: 36415; 70450; 71045; 80053; 81001; 82140; 82803; 83605; 84145; 85025; 93005; 96372; 99285; J1100

== ENCOUNTER → 2025-04-09 12:48 | Outpatient (BNVA) | payer OTHER, SELFPAY | PROVIDERS: PCP Family Medicine; Visit Provider Thoracic Surgery (Cardiothoracic Vascular Surgery) | DX: E11.52 Type 2 diabetes mellitus with diabetic peripheral angiopathy with gangrene (principal); E11.622 Type 2 diabetes mellitus with other skin ulcer; L97.821 Non-pressure chronic ulcer of other part of left lower leg limited to breakdown of skin | CPT/HCPCS: 97597; 99203; A6210; A6248 ==

== ENCOUNTER → 2025-04-10 09:16 | Outpatient (BNVA) | payer OTHER, SELFPAY | PROVIDERS: PCP Family Medicine; Visit Provider Orthopaedic Surgery | DX: M25.522 Pain in left elbow (principal); M70.22 Olecranon bursitis, left elbow | CPT/HCPCS: 73080; 99204 ==

== ENCOUNTER 2025-04-11 11:16 | Oncology outpatient (recurring) (ONCR) | payer OTHER, SELFPAY ==
--- NOTE | 2025-04-11 11:30 | USR_ITS ---
PROCEDURE INFORMATION: Exam: US Duplex Left Lower Extremity Arteries Or Arterial Bypass Grafts Exam date and time: 04/11/2025 11:34 AM Age: 85 years old Clinical indication: Condition or disease; Other: Non healing ulcer of the left ankle; Additional info: I73.9 - peripheral vascular disease, unspecified, w/ shiva if possible TECHNIQUE: Imaging protocol: Left Real-time duplex scan of the arteries or arterial bypass grafts of the left lower extremity with 2-D campblel scale, color Doppler flow and spectral waveform analysis. Images documented and saved. COMPARISON: No relevant prior studies available. FINDINGS: Left external iliac artery: Left external iliac: 126 cm/s, monophasic Left common femoral artery: 68 cm/s, monophasic Left superficial femoral artery: Left SFA proximal: 84 cm/s, monophasic. Left SFA mid: 64 cm/s, monophasic. Left SFA distal: 48 cm/s, monophasic Left popliteal artery: Left popliteal: 31 cm/s, monophasic Left calf/foot arteries: Left posterior tibial: 18 cm/s, monophasic. Left dorsalis pedis: 42 cm/s, monophasic Other findings: Mild mural calcification is present throughout the left lower extremity arteries. Ankle-brachial index could not be performed due to patient intolerance. US/CV arterial duplex [facility] [id number] IMPRESSION: Diffuse monophasic waveforms with reduced lower extremity velocities in the thigh and calf. Focal lower extremity stenosis is not identified, but the findings may indicate a stenosis in the aorta or proximal iliac region.
== END 2025-04-13 23:59 | disposition home or self-care (01) ==
LOC: ONCMED 11:21
PROVIDERS: PCP Family Medicine; Visit Provider Internal Medicine Cardiovascular Disease
DX: I70.202 Unspecified atherosclerosis of native arteries of extremities, left leg (principal); E11.40 Type 2 diabetes mellitus with diabetic neuropathy, unspecified; S81.802A Unspecified open wound, left lower leg, initial encounter; X58.XXXA Exposure to other specified factors, initial encounter; R93.89 Abnormal findings on diagnostic imaging of other specified body structures
CPT/HCPCS: 93926

== ENCOUNTER → 2025-04-16 13:22 | Outpatient (BNVA) | payer OTHER, SELFPAY | PROVIDERS: PCP Family Medicine; Visit Provider Thoracic Surgery (Cardiothoracic Vascular Surgery) | DX: E11.52 Type 2 diabetes mellitus with diabetic peripheral angiopathy with gangrene (principal); E11.622 Type 2 diabetes mellitus with other skin ulcer; L97.821 Non-pressure chronic ulcer of other part of left lower leg limited to breakdown of skin | CPT/HCPCS: 97597; A6210; A6212 ==

== ENCOUNTER → 2025-04-23 11:03 | Outpatient (BNVA) | payer OTHER, SELFPAY | PROVIDERS: PCP Family Medicine; Visit Provider Thoracic Surgery (Cardiothoracic Vascular Surgery) | DX: E11.52 Type 2 diabetes mellitus with diabetic peripheral angiopathy with gangrene (principal); E11.622 Type 2 diabetes mellitus with other skin ulcer; L97.821 Non-pressure chronic ulcer of other part of left lower leg limited to breakdown of skin | CPT/HCPCS: 97597 ==

== ENCOUNTER → 2025-04-30 13:28 | Outpatient (BNVA) | payer OTHER, SELFPAY | PROVIDERS: PCP Family Medicine; Visit Provider Thoracic Surgery (Cardiothoracic Vascular Surgery) | DX: E11.52 Type 2 diabetes mellitus with diabetic peripheral angiopathy with gangrene (principal); E11.622 Type 2 diabetes mellitus with other skin ulcer; L97.821 Non-pressure chronic ulcer of other part of left lower leg limited to breakdown of skin | CPT/HCPCS: 97597; A6212 ==

== ENCOUNTER → 2025-05-07 10:53 | Outpatient (BNVA) | payer OTHER, SELFPAY | PROVIDERS: PCP Family Medicine; Visit Provider Thoracic Surgery (Cardiothoracic Vascular Surgery) | DX: Z09 Encounter for follow-up examination after completed treatment for conditions other than malignant neoplasm (principal); Z87.2 Personal history of diseases of the skin and subcutaneous tissue | CPT/HCPCS: A6212 ==

== ENCOUNTER → 2025-05-21 15:44 | Outpatient (BNVA) | payer OTHER, SELFPAY | PROVIDERS: PCP Family Medicine; Visit Provider Internal Medicine | DX: I25.10 Atherosclerotic heart disease of native coronary artery without angina pectoris (principal); Z86.711 Personal history of pulmonary embolism; Z79.01 Long term (current) use of anticoagulants; I13.0 Hypertensive heart and chronic kidney disease with heart failure and stage 1 through stage 4 chronic kidney disease, or unspecified chronic kidney disease; I50.9 Heart failure, unspecified; N18.9 Chronic kidney disease, unspecified | CPT/HCPCS: 36415; 80048; 83880; 99214 ==